=== PATIENT | male | born 1950 | race Caucasian/White ===

== ENCOUNTER 2018-10-19 06:27 | Inpatient (IN) | payer MEDICARE ==
[2018-10-18 11:04] LABS: BASOPHILS % 0.4 % (0.0-1.0); EOSINOPHILS # (AUTO) 0.1 (0.0-0.4); HEMATOCRIT 43.6 % (38.2-49.6); LYMPHOCYTES # (AUTO) 1.6 (1.0-3.2); LYMPHOCYTES % 31.1 % (18.0-39.1); MEAN CORPUSCULAR HEMOGLOBIN 27.7 pg (28-32); MEAN CORPUSCULAR HGB CONC 32.1 g/dL (31-35); MEAN CORPUSCULAR VOLUME 86.2 fL (81-99); MONOCYTES # (AUTO) 0.3 (0.2-0.8); MONOCYTES % 6.1 % (4.4-11.3); NEUTROPHILS # (AUTO) 3.2 (2.1-6.9); NEUTROPHILS % 61.2 % (38.7-80.0); PLATELET COUNT 254 x10e3/uL (140-360); RED BLOOD COUNT 5.06 x10e6/uL (4.3-5.7); RED CELL DISTRIBUTION WIDTH 14.4 % (11.7-14.4)
--- NOTE | 2018-10-18 11:43 | Diagnostic Imaging Report ---
EXAMINATION: CHEST 2 VIEWS INDICATION: Pre-operative COMPARISON: None FINDINGS: LINES/TUBES:None LUNGS:The lungs are well-inflated. No focal consolidation or pulmonary edema. PLEURA:Trace left pleural effusion. No pneumothorax. MEDIASTINUM:The cardiomediastinal silhouette appears normal in size and shape. BONES/SOFT TISSUES:No acute osseous injury. Thoracolumbar fusion hardware. ABDOMEN:No free air under the diaphragm. IMPRESSION: No focal pneumonia or pulmonary edema. Signed by: Evonne Gutierres MD on 10/18/2018 11:40 AM
[~2018-10-19] VITALS: Ht 185.4 cm; Wt 88.5 kg
[~2018-10-19 06:27] MED LIST: AMLODIPINE-BEN1 EAC1 PO; CALCIUM-MAGNES1 EACH PO; COQ-1030 MG PO; CRESTOR10 MG PO; D3 DOTS2000 UNIT PO; FISH OIL 1,0001 EAC2 PO; LUNESTA3 MG PO; MULTI-VITAMIN1 EACH PO
--- OUTSIDE RECORDS SUMMARY | 2018-10-19 06:38 | XMS REPORT | Clinical Summary ---
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 Active cholecalciferol, vitamin Take 1,000 0 D3, (VITAMIN D3) 1,000 Units by unit tablet mouth nightly. Active coenzyme Q10 (CO Q-10) Take 200 mg 0 200 mg capsule by mouth nightly. Active eszopiclone (LUNESTA) 3 Take 3 mg by 0 mg tablet mouth nightly as needed for sleep. Take immediately before bedtime Active HYDROcodone-acetaminophen Take 1 tablet 0 (NORCO) 10-325 mg per by mouth tablet every 8 (eight) hours as needed for moderate pain. Active multivitamin (THERAGRAN) Take 0.5 0 tablet tablets by mouth 2 (two) times a day. Active omega 4-otq-ukf-fish oil Take 1 0 (FISH OIL) 100-160-1,000 capsule by mg capsule mouth nightly. Active polyethylene glycol Take 17 g by 0 (MIRALAX) 17 gram packet mouth daily as needed for constipation. Active rosuvastatin (CRESTOR) 20 Take 20 mg by 0 MG tablet mouth nightly. Active RSYEPOT-DOZOOFPDS-QAAC Take 1 tablet 0 ORAL by mouth every morning. Active midodrine (PROAMATINE) 5 Take 5 mg by 3 MG tablet mouth 2 (two) 9 times a day. Active metoprolol tartrate TAKE 1/2 1 (LOPRESSOR) 25 mg tablet TBALET BY 9 MOUTH TWICE A DAY 09/21/2019 Active gabapentin (NEURONTIN) Take 1 90 capsule 2 300 mg capsule capsule (300 9 mg total) by mouth 3 (three) times a day. 03/10/2018 Discontinued (Stop Taking at Discharge) amlodipine-benazepril Take 1 0 (LOTREL 5-10) 5-10 mg per capsule by capsule mouth daily. 12/16/2017 Discontinued (Med List Cleanup) clopidogrel (PLAVIX) 75 Take 75 mg by 0 mg tablet mouth. 12/17/2017 Discontinued (Stop Taking at Discharge) eszopiclone (LUNESTA) 3 Take 3 mg by 0 mg tablet mouth nightly as needed for sleep. 12/16/2017 Discontinued (Med List Cleanup) gabapentin (NEURONTIN) Take 1 pill 0 300 mg capsule at bedtime 8 for 1 week, then 2 pills nightly 03/29/2018 Discontinued rosuvastatin (CRESTOR) 20 Take 20 mg by 0 MG tablet mouth nightly. 01/29/2018 Discontinued gabapentin (NEURONTIN) Take 300 mg 0 300 mg capsule by mouth daily. 01/29/2018 Discontinued baclofen (LIORESAL) 20 MG Take 20 mg by 0 tablet mouth 4 (four) times a day as needed for muscle spasms. 01/29/2018 Discontinued meloxicam (MOBIC) 15 mg Take 15 mg by 0 tablet mouth daily as needed. 03/29/2018 Discontinued aspirin (ECOTRIN) 81 MG Take 81 mg by 0 enteric coated tablet mouth daily. 03/29/2018 Discontinued omega 9-zbh-suc-fish oil Take 1,000 mg 0 (FISH OIL) 100-160-1,000 by mouth mg capsule daily. 03/29/2018 Discontinued multivitamin (THERAGRAN) Take 1 tablet 0 tablet by mouth daily. 03/29/2018 Discontinued coenzyme Q10 200 mg Take 200 mg 0 capsule by mouth daily. 03/29/2018 Discontinued cholecalciferol, vitamin Take 1,000 0 D3, (VITAMIN D3) 2,000 Units by unit capsule capsule mouth daily. 03/29/2018 Discontinued eszopiclone (LUNESTA) 3 Take 3 mg by 0 mg tablet mouth nightly. Take immediately before bedtime 03/29/2018 Discontinued CALCIUM ORAL Take by 0 mouth. 03/29/2018 Discontinued (Med List Cleanup) metoprolol tartrate Take 0.5 90 tablet 1 (LOPRESSOR) 25 mg tablet tablets (12.5 9 mg total) by mouth 2 (two) times a day for 90 days. 03/29/2018 Discontinued (Med List Cleanup) polyethylene glycol Take 17 g by 30 packet 0 (MIRALAX) 17 gram packet mouth daily 9 for 30 days. 03/29/2018 Discontinued HYDROcodone-acetaminophen Take 1 tablet 60 tablet 0 (NORCO) 10-325 mg per by mouth 9 tablet every 8 (eight) hours as needed for moderate pain for up to 20 days. Max Daily Amount: 3 tablets 04/02/2018 Discontinued (Reorder) metoprolol tartrate Take 12.5 mg 0 (LOPRESSOR) 25 mg tablet by mouth 2 (two) times a day. 05/02/2018 metoprolol tartrate Take 1 tablet 60 tablet 3 (LOPRESSOR) 25 mg tablet (25 mg total) 9 by mouth 2 (two) times a day for 30 days. 07/20/2018 amoxicillin (AMOXIL) 500 Take 1 4 capsule 0 MG capsule capsule (500 9 mg total) by mouth 3 (three) times a day for 1 day. 09/21/2018 Discontinued (Reorder) gabapentin (NEURONTIN) Take 1 90 capsule 2 300 mg capsule capsule (300 9 mg total) by mouth 3 (three) times a day. Active Problems Problem Noted Date Pseudarthrosis following spinal fusion 02/19/2018 Syncope 12/16/2017 Encounters Care Team Description Date Type Specialty Phyllis Denton MA 09/21/2018 Refill Orthopedic Surgery Anant Singer MD Pseudarthrosis following spinal fusion (Primary Dx); Chronic low back pain without sciatica, unspecified back pain laterality; Degeneration of intervertebral disc of lumbar region; Sagittal plane imbalance; Adjacent segment disease with kyphosis 08/18/2018 Office Visit Orthopedic Surgery Phyllis Denton MA 07/19/2018 Refill Orthopedic Surgery Phyllis Denton MA 07/19/2018 Refill Orthopedic Surgery Anant Singer MD Postoperative abdominal pain 07/08/2018 Hospital Radiology Encounter Phyllis Denton MA Postoperative abdominal pain (Primary Dx) 07/01/2018 Orders Only Orthopedic Surgery Anant Singer MD Sagittal plane imbalance (Primary Dx); Adjacent segment disease with kyphosis; Chronic low back pain without sciatica, unspecified back pain laterality; Degeneration of intervertebral disc of lumbar region; Pseudarthrosis following spinal fusion 05/19/2018 Office Visit Orthopedic Surgery Kellie Yates MD Thai, Ryan T., MD Syncope, unspecified syncope type (Primary Dx) 03/29/2018 Hospital Neurology - Encounter 04/02/2018 Anant Singer MD Pseudarthrosis following spinal fusion (Primary Dx) 03/24/2018 Office Visit Orthopedic Surgery Anant Singer MD FUSION, ANTERIOR SPINAL COLUMN, LUMBAR, ANTERIOR APPROACH L2 Corpectomy with L1-3 fusion; possible instrumentation fusion; SSEP and motors; BMP 03/01/2018 Surgery General Surgery Pepe Burdick MD Cunningham, Carley, CRNA 03/01/2018 Anesthesia General Surgery Event Anant Singer MD SPINAL FUSION WITH INSTRUMENTAION T9-L5 WITH HARDWARE REMOVAL MANTILLA DOLAN OSTEOTOMIES L1-L2 L2-L3 LAMINECTIOMY L1-L2 L2-L3 WITH BMP W/ SSEP MONITORING 02/25/2018 Surgery General Surgery Maria A Daly MD Felan, Veronica Lynn, WHARF TENDER HEAD 02/25/2018 Anesthesia General Surgery Event Anant Singer MD Pseudarthrosis after fusion or arthrodesis 02/19/2018 Hospital Neurology Encounter Anant Singer MD STAGE 1 L1-L2 L2-L3 ANTERIOR OSTEOTOMIES WITH 20 CAGE @L2- L3 AND 15 CAGE @ L1-L2 WITH ANTERIOR SPINAL FUSION WITH INSTRUMENTATION AND BMP 02/19/2018 Surgery General Surgery Les Hayes MD Felan, Veronica Lynn, WHARF TENDER HEAD 02/19/2018 Anesthesia General Surgery Event Anant Singer MD Thai, Ryan T., MD Pseudarthrosis following spinal fusion; Pseudarthrosis after fusion or arthrodesis 02/19/2018 Hospital Orthopedic Surgery - Encounter 03/10/2018 Liban Zurita MD Marco, Rex A. W., MD Preop testing (Primary Dx) 02/12/2018 Pre-Admit Pre-Admission Testing Testing Appointment Gemini Heck MA Pseudarthrosis after fusion or arthrodesis (Primary Dx) 01/19/2018 Orders Only Orthopedic Surgery Anant Singer MD Adjacent segment disease with spinal stenosis (Primary Dx); Pseudarthrosis following spinal fusion; Sagittal plane imbalance; Spondylolisthesis of lumbar region; Chronic low back pain without sciatica, unspecified back pain laterality; Spinal stenosis of lumbar region with neurogenic claudication; DDD (degenerative disc disease), lumbar 01/13/2018 Office Visit Orthopedic Surgery Lucy Sales MD Vitamin D deficiency 01/07/2018 Lab Lab Lucy Sales MD Vitamin D deficiency (Primary Dx) 01/07/2018 Office Visit Endocrinology Anant Singer MD Chronic low back pain without sciatica, unspecified back pain laterality; Degeneration of intervertebral disc of lumbar region; Adjacent segment disease with kyphosis 12/29/2017 Hospital Radiology Encounter Anant Singer MD Chronic low back pain without sciatica, unspecified back pain laterality; Degeneration of intervertebral disc of lumbar region; Adjacent segment disease with kyphosis 12/29/2017 Hospital Radiology Encounter Kellie Yates MD Ahmed, Rezwan, MD Syncope, unspecified syncope type (Primary Dx) 12/16/2017 Emergency Neurology - 12/17/2017 Anant Singer MD Chronic low back pain without sciatica, unspecified back pain laterality (Primary Dx); Degeneration of intervertebral disc of lumbar region; Adjacent segment disease with kyphosis; Flat back syndrome 12/16/2017 Office Visit Orthopedic Surgery after 10/18/2017 Family History Medical History Relation Name Comments Hypertension Mother Relation Name Status Comments Mother Social History Date Tobacco Use Types Packs/Day Years Used Never Smoker Smokeless Tobacco: Never Used Drinks/Week oz/Week Comments Alcohol Use occasional Yes Sex Assigned at Date Recorded Not on file Industry Job Start Date Occupation Not on file Not on file Not on file Travel End Travel History Travel Start No recent travel history available. Last Filed Vital Signs Reading Time Taken Comments Vital Sign 138/85 04/02/2018 12:27 PM TESTER ELECTRONIC SCALE Blood Pressure 95 04/02/2018 12:27 PM TESTER ELECTRONIC SCALE Pulse 36.8 C (98.2 F) 04/02/2018 12:27 PM TESTER ELECTRONIC SCALE Temperature 18 04/02/2018 12:27 PM TESTER ELECTRONIC SCALE Respiratory Rate 95% 04/02/2018 12:27 PM TESTER ELECTRONIC SCALE Oxygen Saturation - - Inhaled Oxygen Concentration 83.9 kg (185 lb) 07/08/2018 9:38 AM CDT Weight 185.4 cm (6' 1") 07/08/2018 9:38 AM CDT Height 24.41 07/08/2018 9:38 AM CDT Body Mass Index Plan of Treatment Care Team Description Date Type Specialty Anant Singer MD [address] [id number] Bonifacio Orr PAThalia [address] [id number] 02/23/2019 Office Visit Orthopedic Surgery Health Maintenance Due Date Last Done Comments COLONOSCOPY SCREENING 11/27/2001 SHINGLES VACCINES (#1) 11/27/2001 65+ PNEUMOCOCCAL VACCINE 11/27/2016 03/12/2015 (2 of 2 - PPSV23) INFLUENZA VACCINE 09/09/2018 12/03/2017, 12/10/2016, 01/09/2016, Additional history exists Implants Device Identifier Shelf Expiration Date Model / Serial / Lot Implanted Type Area [facility] 07/10/2019 [id number] / / [id number] Kit Bone Grft Lmbr Tprd 8ml Xxl Human N/A: N/A MEDTRONIC Infuse - [id number] Tissue SPINAL AND Implanted: Qty: 1 on 02/19/2018 by Implants BIOLOGICS Anant Singer MD at [facility] 06/03/2020 [id number] / [id number] / LOT NA Chip Canc Allograft Leader [facility] Human N/A: N/A MUSCULOSKE 30cc 0.1-4mm - [id number] - Tissue LETAL [id number] Implants TRANSPLANT Implanted: Qty: 1 on 02/19/2018 by [facility] Anant Singer MD at [facility] 12/22/2020 [id number] / [id number] / LOT NA Chip Canc Allograft Leader [facility] Human N/A: N/A MUSCULOSKE 30cc 0.1-4mm - [id number] - Tissue LETAL [id number] Implants TRANSPLANT Implanted: Qty: 1 on 02/19/2018 by Anant Allen MD at [facility] 07/10/2019 [id number] / / [id number] Kit Bone Grft Lmbr Tprd 8ml Xxl Human N/A: Spine, MEDTRONIC Infuse - [id number] Tissue Multi-Level SPINAL AND Implanted: Qty: 1 on 02/25/2018 by Implants BIOLOGICS Anant Singer MD at [facility] 09/25/2020 [id number] / [id number] / LOT NA Chip Canc Allograft Leader Crs Human N/A: Spine, MUSCULOSKE 30cc 0.1-4mm - [id number] - Tissue Multi-Level LETAL [id number] Implants TRANSPLANT Implanted: Qty: 1 on 02/25/2018 by [facility] Anant Singer MD at [facility] 12/22/2020 [id number] / [id number] / LOT NA Chip Canc Allograft Leader [facility] Human N/A: Spine, MUSCULOSKE 30cc 0.1-4mm - [id number] - Tissue Multi-Level LETAL [id number] Implants TRANSPLANT Implanted: Qty: 1 on 02/25/2018 by [facility] Anant Singer MD at [facility] 09/25/2020 [id number] / [id number] / LOT NA Chip Canc Allograft Leader [facility] Human N/A: Spine, MUSCULOSKE 30cc 0.1-4mm - [id number] - Tissue Multi-Level LETAL [id number] Implants TRANSPLANT Implanted: Qty: 1 on 02/25/2018 by [facility] Anant Singer MD at [facility] 10/09/2020 [id number] / / [id number] Matrix Dural Duragen Plus 1x3in Human N/A: N/A INTEGRA Regnrtn - [id number] Tissue LIFESCIENC Implanted: Qty: 1 on 02/25/2018 by Implants E NEURO Anant Singer MD at [facility] 01/20/2021 [id number] / [id number] / [id number] Chip Canc Allograft Leader Crs Human N/A: N/A MUSCULOSKE 30cc 0.1-4mm - [id number] - Tissue LETAL [id number] Implants TRANSPLANT Implanted: Qty: 1 on 03/01/2018 by [facility] Anant Singer MD at [facility] 01/20/2021 [id number] / [id number] / LOT NA Chip Canc Allograft Leader Crs Human N/A: N/A MUSCULOSKE 30cc 0.1-4mm - [id number] - Tissue LETAL [id number] Implants TRANSPLANT Implanted: Qty: 1 on 03/01/2018 by Anant Allen MD at [facility] 01/20/2021 [id number] / [id number] / LOT NA Chip Canc Allograft Leader Crs Human N/A: N/A MUSCULOSKE 30cc 0.1-4mm - [id number] - Tissue LETAL [id number] Implants TRANSPLANT Implanted: Qty: 1 on 03/01/2018 by Anant Allen MD at [facility] 04/09/2019 [id number] / / [id number] Kit Bone Grft Lmbr Tprd 5.6ml Med Human N/A: N/A MEDTRONIC Infuse - [id number] Tissue SPINAL AND Implanted: Qty: 1 on 03/01/2018 by Implants BIOLOGICS Anant Singer MD at [facility] [id number] / / Valente Glaser Md 14mm 20 Deg - IPM N/A: N/A DEPUY [id number] IMPLANT SYNTHES Implanted: Qty: 1 on 02/19/2018 by DEVICES SPINE Anant Singer MD at [facility] [id number] / / Valente Lucio [id number] 15-Deg Lord - IPM N/A: N/A DEPUY [id number] IMPLANT SYNTHES Implanted: Qty: 1 on 02/19/2018 by DEVICES SPINE Anant Singer MD at [facility] [id number] / / Expedium 6.35 Ti, Poly Screw 6 X IPM N/A: Spine, DEPUY 30mm - [id number] IMPLANT Multi-Level SYNTHES Implanted: 02/25/2018 at [facility] DEVICES [facility] (Quantity not on file) [id number] / / Expedium 6.35 Ti, Poly Screw 6 X IPM N/A: Spine, DEPUY 45mm - [id number] IMPLANT Multi-Level SYNTHES Implanted: 02/25/2018 at [facility] (Quantity not on file) [id number] / / Expedium 6.35 Ti, Poly Screw 6 X IPM N/A: Spine, DEPUY 50mm - [id number] IMPLANT Multi-Level SYNTHES Implanted: 02/25/2018 at [facility] (Quantity not on file) [id number] / / Expedium 6.35 Ti, Poly Screw 7 X IPM N/A: Spine, DEPUY 50mm - [id number] IMPLANT Multi-Level SYNTHES Implanted: 02/25/2018 at [facility] (Quantity not on file) [id number] / / Expedium 6.35 Ti, Poly Screw 8 X IPM N/A: Spine, DEPUY 50mm - [id number] IMPLANT Multi-Level SYNTHES Implanted: 02/25/2018 at [facility] (Quantity not on file) [id number] / / Expedium Plus Ti, Eleuterio, Str, Ti, IPM N/A: Spine, DEPUY 450mm (Hx End) - [id number] IMPLANT Multi-Level SYNTHES Implanted: 02/25/2018 at [facility] (Quantity not on file) [id number] / / Expedium Plus Ti, Eleuterio, Str, Ti, IPM N/A: Spine, DEPUY 450mm (Hx End) - [id number] IMPLANT Multi-Level SYNTHES Implanted: 02/25/2018 at [facility] (Quantity not on file) [id number] / / Expedium Plus Ti, Open/Cls Sd X Sd IPM N/A: Spine, DEPUY Con 635/635 Ti - [id number] IMPLANT Multi-Level SYNTHES Implanted: 02/25/2018 at [facility] (Quantity not on file) [id number] / / Synmesh 15mm Heaven 88mm Height (Ti) - IPM N/A: N/A SYNTHES (00) Synmesh IMPLANT SPINE - [id number] DEVICES Implanted: Qty: 2 on 03/01/2018 by Anant Singer MD at [facility] [id number] / / Expedium Anterior, Twiggs Screw 6 X IPM N/A: N/A DEPUY 55mm - [id number] IMPLANT SYNTHES Implanted: Qty: 2 on 03/01/2018 by DEVICES SPINE Anant Singer MD at [facility] [id number] / / Expedium Anterior, Pre-Cut 5.50 X IPM N/A: N/A DEPUY 95mm Eleuterio - [id number] IMPLANT SYNTHES Implanted: Qty: 1 on 03/01/2018 by DEVICES SPINE Anant Singer MD at [facility] [id number] / / Expedium Anterior, Twiggs Screw 6 X IPM N/A: N/A DEPUY 55mm - [id number] IMPLANT SYNTHES Implanted: Qty: 2 on 03/01/2018 by DEVICES SPINE Anant Singer MD at [facility] [id number] / / Expedium Anterior, Pre-Cut 5.50 X IPM N/A: N/A DEPUY 95mm Eleuterio - [id number] IMPLANT SYNTHES Implanted: 03/01/2018 at [facility] DEVICES [facility] (Quantity not on file) [id number] / / Synmesh 15mm Heaven 88mm Height (Ti) - IPM N/A: N/A SYNTHES (00) Synmesh IMPLANT SPINE - [id number] DEVICES Implanted: Qty: 2 on 03/01/2018 by Anant Singer MD at [facility] [id number] / / Screw Spinal Set Si Ti 6.35mm Spinal N/A: Spine, DEPUY Expedium - [id number] Implants Multi-Level SPINE Implanted: 02/25/2018 at [facility] (Quantity not on file) [id number] / / Screw Spinal Set Si Ti 6.35mm Spinal N/A: Spine, DEPUY Expedium - [id number] Implants Multi-Level SPINE Implanted: 02/25/2018 at [facility] (Quantity not on file) [id number] / / Screw Set Ant - [id number] Spinal N/A: N/A DEPUY Implanted: 03/01/2018 at [facility] Implants [facility] (Quantity not on file) [id number] / / Screw Set Ant - [id number] Spinal N/A: N/A DEPUY Implanted: 03/01/2018 at [facility] Implants [facility] (Quantity not on file) 04/09/2019 [id number] / / [id number] Kit Selnt Fibrin Humn Hms Surgy Surgical N/A: N/A ETHICON 5ml Evicel - [id number] Implants; US- Implanted: 02/25/2018 at [facility] Expanders; HOSPITAL (Quantity not on file) Extenders; Surgical Wires Device Identifier Shelf Expiration Date Model / Serial / Lot Explanted Type Area Manufactur er [id number] / / Expedium 6.35 Ti, Poly Screw 6 X IPM N/A: N/A DEPUY 50mm - [id number] IMPLANT SYNTHES Implanted: 02/25/2018 (Quantity not DEVICES SPINE on file) Explanted: 02/25/2018 at [facility] (Quantity not on file) Procedures Comments Procedure Name Priority Date/Time Associated Diagnosis XR SPINE SCOLIOSIS 2-3 Routine 08/18/2018 Pseudarthrosis following VIEWS 8:47 AM CDT spinal fusion Chronic low back pain without sciatica, unspecified back pain laterality Degeneration of intervertebral disc of lumbar region Sagittal plane imbalance Adjacent segment disease with kyphosis CT ABDOMEN WWO CONTRAST Routine 07/08/2018 Postoperative abdominal PELVIS W CONTRAST 12:07 PM CDT pain ESTIMATED GFR Routine 07/08/2018 9:48 AM CDT POC CREATININE Routine 07/08/2018 9:48 AM CDT XR SPINE SCOLIOSIS 2-3 Routine 05/19/2018 Sagittal plane imbalance VIEWS 8:43 AM CDT Adjacent segment disease with kyphosis Chronic low back pain without sciatica, unspecified back pain laterality Degeneration of intervertebral disc of lumbar region Pseudarthrosis following spinal fusion XR CHEST 1 VW PORTABLE Routine 04/02/2018 8:42 AM TESTER ELECTRONIC SCALE ESTIMATED GFR Routine 04/02/2018 4:00 AM TESTER ELECTRONIC SCALE PHOSPHORUS LEVEL Routine 04/02/2018 4:00 AM TESTER ELECTRONIC SCALE MAGNESIUM LEVEL Routine 04/02/2018 4:00 AM TESTER ELECTRONIC SCALE BASIC METABOLIC PANEL Routine 04/02/2018 4:00 AM TESTER ELECTRONIC SCALE HC COMPLETE BLD COUNT Routine 04/02/2018 W/AUTO DIFF 3:47 AM TESTER ELECTRONIC SCALE CYTOLOGY Routine 03/31/2018 (NON-GYNECOLOGICAL) 1:06 PM TESTER ELECTRONIC SCALE REQUEST XR CHEST 1 VW Routine 03/31/2018 10:58 AM TESTER ELECTRONIC SCALE US THORACENTESIS WITH Today 03/31/2018 IMAGING 10:49 AM TESTER ELECTRONIC SCALE BODY FLUID CONSULT Routine 03/31/2018 10:16 AM TESTER ELECTRONIC SCALE PROTEIN, MISC FLUID Routine 03/31/2018 10:16 AM TESTER ELECTRONIC SCALE LDH, MISC FLUID Routine 03/31/2018 10:16 AM TESTER ELECTRONIC SCALE GLUCOSE LEVEL, MISC FLUID Routine 03/31/2018 10:16 AM TESTER ELECTRONIC SCALE CELL COUNT AND Routine 03/31/2018 DIFFERENTIAL, BODY FLUID 10:16 AM TESTER ELECTRONIC SCALE AFB STAIN Routine 03/31/2018 10:16 AM TESTER ELECTRONIC SCALE GRAM STAIN Routine 03/31/2018 10:16 AM TESTER ELECTRONIC SCALE ANAEROBIC CULTURE Routine 03/31/2018 10:16 AM TESTER ELECTRONIC SCALE AEROBIC CULTURE Routine 03/31/2018 10:16 AM TESTER ELECTRONIC SCALE AFB CULTURE Routine 03/31/2018 9:16 AM TESTER ELECTRONIC SCALE ESTIMATED GFR Routine 03/31/2018 4:38 AM TESTER ELECTRONIC SCALE HC COMPLETE BLD COUNT Routine 03/31/2018 W/AUTO DIFF 4:38 AM TESTER ELECTRONIC SCALE PHOSPHORUS LEVEL Routine 03/31/2018 4:38 AM TESTER ELECTRONIC SCALE MAGNESIUM LEVEL Routine 03/31/2018 4:38 AM TESTER ELECTRONIC SCALE BASIC METABOLIC PANEL Routine 03/31/2018 4:[address] ANGIOGRAM ABDOMEN W WO STAT 03/30/2018 CONTRAST 10:19 PM TESTER ELECTRONIC SCALE POC GLUCOSE Routine 03/30/2018 10:17 AM TESTER ELECTRONIC SCALE LACTIC ACID LEVEL Routine 03/30/2018 4:00 AM TESTER ELECTRONIC SCALE TROPONIN Routine 03/30/2018 4:00 AM TESTER ELECTRONIC SCALE ESTIMATED GFR Routine 03/30/2018 4:00 AM TESTER ELECTRONIC SCALE HEPATIC FUNCTION PANEL Routine 03/30/2018 4:00 AM TESTER ELECTRONIC SCALE LDH Routine 03/30/2018 4:00 AM TESTER ELECTRONIC SCALE PHOSPHORUS LEVEL Routine 03/30/2018 4:00 AM TESTER ELECTRONIC SCALE MAGNESIUM LEVEL Routine 03/30/2018 4:00 AM TESTER ELECTRONIC SCALE BASIC METABOLIC PANEL Routine 03/30/2018 4:00 AM TESTER ELECTRONIC SCALE TROPONIN Timed 03/29/2018 9:28 PM TESTER ELECTRONIC SCALE LACTIC ACID LEVEL, SEPSIS Timed 03/29/2018 - NOW AND REPEAT 2X EVERY 9:28 PM TESTER ELECTRONIC SCALE [address] ANGIOGRAM PE CHEST STAT 03/29/2018 8:11 PM TESTER ELECTRONIC SCALE ESTIMATED GFR STAT 03/29/2018 5:06 PM TESTER ELECTRONIC SCALE B NATRIURETIC PEPTIDE STAT 03/29/2018 5:06 PM TESTER ELECTRONIC SCALE TROPONIN STAT 03/29/2018 5:06 PM TESTER ELECTRONIC SCALE CREATINE KINASE, TOTAL STAT 03/29/2018 (CPK) 5:06 PM TESTER ELECTRONIC SCALE LACTIC ACID LEVEL, SEPSIS STAT 03/29/2018 - NOW AND REPEAT 2X EVERY 5:06 PM TESTER ELECTRONIC SCALE 3 HOURS COMPREHENSIVE METABOLIC STAT 03/29/2018 PANEL 5:06 PM TESTER ELECTRONIC SCALE PARTIAL THROMBOPLASTIN STAT 03/29/2018 TIME (PTT) 5:06 PM TESTER ELECTRONIC SCALE PROTHROMBIN TIME WITH INR STAT 03/29/2018 5:06 PM TESTER ELECTRONIC SCALE HC COMPLETE BLD COUNT STAT 03/29/2018 W/AUTO DIFF 5:06 PM TESTER ELECTRONIC SCALE ECG ED PRELIMINARY Routine 03/29/2018 INTERPRETATION 3:31 PM TESTER ELECTRONIC SCALE ECG 12-LEAD STAT 03/29/2018 3:17 PM TESTER ELECTRONIC SCALE XR SPINE SCOLIOSIS 2-3 Routine 03/24/2018 Pseudarthrosis following VIEWS 11:36 AM TESTER ELECTRONIC SCALE spinal fusion XR SPINE SCOLIOSIS 2-3 STAT 03/08/2018 VIEWS 4:32 PM TESTER ELECTRONIC SCALE US DUPLEX VENOUS LOWER Routine 03/07/2018 EXTREMITY BILATERAL 11:36 AM TESTER ELECTRONIC SCALE THYROID STIMULATING Routine 03/07/2018 HORMONE 4:00 AM TESTER ELECTRONIC SCALE ECHOCARDIOGRAM 2D Routine 03/05/2018 COMPLETE W MMODE SPECTRAL 10:16 AM TESTER ELECTRONIC SCALE COLOR DOPPLER (88349) CT CHEST WO CONTRAST Routine 03/05/2018 9:35 AM TESTER ELECTRONIC SCALE B NATRIURETIC PEPTIDE Routine 03/05/2018 3:40 AM TESTER ELECTRONIC SCALE HC COMPLETE BLD COUNT Routine 03/05/2018 W/AUTO DIFF 3:40 AM TESTER ELECTRONIC SCALE TROPONIN Routine 03/04/2018 4:00 PM TESTER ELECTRONIC SCALE POC GLUCOSE Routine 03/04/2018 12:14 PM TESTER ELECTRONIC SCALE ARTERIAL BLOOD GAS Routine 03/04/2018 11:39 AM TESTER ELECTRONIC SCALE POC GLUCOSE Routine 03/04/2018 8:13 AM TESTER ELECTRONIC SCALE XR CHEST 1 VW PORTABLE STAT 03/04/2018 7:06 AM TESTER ELECTRONIC SCALE POC GLUCOSE Routine 03/04/2018 12:36 AM TESTER ELECTRONIC SCALE IONIZED CALCIUM, ARTERIAL Routine 03/04/2018 12:30 AM TESTER ELECTRONIC SCALE ARTERIAL BLOOD GAS Routine 03/04/2018 12:30 AM TESTER ELECTRONIC SCALE FIBRINOGEN Routine 03/04/2018 12:30 AM TESTER ELECTRONIC SCALE PROTHROMBIN TIME WITH INR Routine 03/04/2018 12:30 AM TESTER ELECTRONIC SCALE PARTIAL THROMBOPLASTIN Routine 03/04/2018 TIME (PTT) 12:30 AM TESTER ELECTRONIC SCALE ESTIMATED GFR Routine 03/04/2018 12:30 AM TESTER ELECTRONIC SCALE PHOSPHORUS LEVEL Routine 03/04/2018 12:30 AM TESTER ELECTRONIC SCALE MAGNESIUM LEVEL Routine 03/04/2018 12:30 AM TESTER ELECTRONIC SCALE HC COMPLETE BLD COUNT Routine 03/04/2018 W/AUTO DIFF 12:30 AM TESTER ELECTRONIC SCALE BASIC METABOLIC PANEL Routine 03/04/2018 12:30 AM TESTER ELECTRONIC SCALE XR CHEST 1 VW PORTABLE Routine 03/03/2018 10:05 PM TESTER ELECTRONIC SCALE POC GLUCOSE Routine 03/03/2018 8:30 PM TESTER ELECTRONIC SCALE POC GLUCOSE Routine 03/03/2018 3:50 PM TESTER ELECTRONIC SCALE POC GLUCOSE Routine 03/03/2018 12:45 PM TESTER ELECTRONIC SCALE POC GLUCOSE Routine 03/03/2018 8:33 AM TESTER ELECTRONIC SCALE POC GLUCOSE Routine 03/03/2018 5:29 AM TESTER ELECTRONIC SCALE ESTIMATED GFR Routine 03/03/2018 2:56 AM TESTER ELECTRONIC SCALE PHOSPHORUS LEVEL Routine 03/03/2018 2:56 AM TESTER ELECTRONIC SCALE MAGNESIUM LEVEL Routine 03/03/2018 2:56 AM TESTER ELECTRONIC SCALE HC COMPLETE BLD COUNT Routine 03/03/2018 W/AUTO DIFF 2:56 AM TESTER ELECTRONIC SCALE BASIC METABOLIC PANEL Routine 03/03/2018 2:56 AM TESTER ELECTRONIC SCALE POC GLUCOSE Routine 03/03/2018 12:23 AM TESTER ELECTRONIC SCALE POC GLUCOSE Routine 03/02/2018 8:29 PM TESTER ELECTRONIC SCALE POC GLUCOSE Routine 03/02/2018 4:07 PM TESTER ELECTRONIC SCALE HC COMPLETE BLD COUNT Routine 03/02/2018 W/AUTO DIFF 1:20 PM TESTER ELECTRONIC SCALE POC GLUCOSE Routine 03/02/2018 11:52 AM TESTER ELECTRONIC SCALE POC GLUCOSE Routine 03/02/2018 8:18 AM TESTER ELECTRONIC SCALE XR CHEST 1 VW PORTABLE Routine 03/02/2018 6:48 AM TESTER ELECTRONIC SCALE ESTIMATED GFR Routine 03/02/2018 1:59 AM TESTER ELECTRONIC SCALE LACTIC ACID LEVEL Routine 03/02/2018 1:59 AM TESTER ELECTRONIC SCALE PHOSPHORUS LEVEL Routine 03/02/2018 1:59 AM TESTER ELECTRONIC SCALE MAGNESIUM LEVEL Routine 03/02/2018 1:59 AM TESTER ELECTRONIC SCALE COMPREHENSIVE METABOLIC Routine 03/02/2018 PANEL 1:59 AM TESTER ELECTRONIC SCALE IONIZED CALCIUM, ARTERIAL Routine 03/02/2018 1:25 AM TESTER ELECTRONIC SCALE PROTHROMBIN TIME WITH INR Routine 03/02/2018 1:25 AM TESTER ELECTRONIC SCALE PARTIAL THROMBOPLASTIN Routine 03/02/2018 TIME (PTT) 1:25 AM TESTER ELECTRONIC SCALE HC COMPLETE BLD COUNT Routine 03/02/2018 W/AUTO DIFF 1:25 AM TESTER ELECTRONIC SCALE ARTERIAL BLOOD GAS Routine 03/02/2018 1:25 AM TESTER ELECTRONIC SCALE TRANSFUSE FRESH FROZEN STAT 03/01/2018 PLASMA 5:21 PM TESTER ELECTRONIC SCALE ARTERIAL BLOOD GAS Routine 03/01/2018 5:17 PM TESTER ELECTRONIC SCALE HC COMPLETE BLD COUNT Routine 03/01/2018 W/AUTO DIFF 5:17 PM TESTER ELECTRONIC SCALE TRANSFUSE FRESH FROZEN STAT 03/01/2018 PLASMA 4:34 PM TESTER ELECTRONIC SCALE TRANSFUSE PLATELET STAT 03/01/2018 PHERESIS 3:58 PM TESTER ELECTRONIC SCALE POC GLUCOSE Routine 03/01/2018 3:48 PM TESTER ELECTRONIC SCALE SURGICAL PATHOLOGY Routine 03/01/2018 REQUEST 3:10 PM TESTER ELECTRONIC SCALE ESTIMATED GFR Routine 03/01/2018 2:25 PM TESTER ELECTRONIC SCALE LACTIC ACID LEVEL Routine 03/01/2018 2:25 PM TESTER ELECTRONIC SCALE PHOSPHORUS LEVEL Routine 03/01/2018 2:25 PM TESTER ELECTRONIC SCALE MAGNESIUM LEVEL Routine 03/01/2018 2:25 PM TESTER ELECTRONIC SCALE BASIC METABOLIC PANEL Routine 03/01/2018 2:25 PM TESTER ELECTRONIC SCALE INTRAOPERATIVE MONITORING Routine 03/01/2018 1:25 PM TESTER ELECTRONIC SCALE TRANSFUSE RED BLOOD CELLS Routine 03/01/2018 1:17 PM TESTER ELECTRONIC SCALE OR FL > 1 HOUR Routine 03/01/2018 1:06 PM TESTER ELECTRONIC SCALE TRANSFUSE RED BLOOD CELLS Routine 03/01/2018 1:00 PM TESTER ELECTRONIC SCALE MAGNESIUM LEVEL STAT 03/01/2018 12:11 PM TESTER ELECTRONIC SCALE LACTIC ACID, SYRINGE STAT 03/01/2018 12:11 PM TESTER ELECTRONIC SCALE GLUCOSE LEVEL, SYRINGE STAT 03/01/2018 12:11 PM TESTER ELECTRONIC SCALE IONIZED CALCIUM, ARTERIAL STAT 03/01/2018 12:11 PM TESTER ELECTRONIC SCALE HEMOGLOBIN, SYRINGE STAT 03/01/2018 12:11 PM TESTER ELECTRONIC SCALE SODIUM LEVEL, SYRINGE STAT 03/01/2018 12:11 PM TESTER ELECTRONIC SCALE POTASSIUM, SYRINGE STAT 03/01/2018 12:11 PM TESTER ELECTRONIC SCALE ARTERIAL BLOOD GAS, STAT 03/01/2018 CORRECTED 12:11 PM TESTER ELECTRONIC SCALE TRANSFUSE RED BLOOD CELLS Routine 03/01/2018 11:54 AM TESTER ELECTRONIC SCALE TRANSFUSE RED BLOOD CELLS Routine 03/01/2018 11:26 AM TESTER ELECTRONIC SCALE MAGNESIUM LEVEL STAT 03/01/2018 10:45 AM TESTER ELECTRONIC SCALE LACTIC ACID, SYRINGE STAT 03/01/2018 10:45 AM TESTER ELECTRONIC SCALE GLUCOSE LEVEL, SYRINGE STAT 03/01/2018 10:45 AM TESTER ELECTRONIC SCALE IONIZED CALCIUM, ARTERIAL STAT 03/01/2018 10:45 AM TESTER ELECTRONIC SCALE POTASSIUM, SYRINGE STAT 03/01/2018 10:45 AM TESTER ELECTRONIC SCALE SODIUM LEVEL, SYRINGE STAT 03/01/2018 10:45 AM TESTER ELECTRONIC SCALE HEMOGLOBIN, SYRINGE STAT 03/01/2018 10:45 AM TESTER ELECTRONIC SCALE ARTERIAL BLOOD GAS, STAT 03/01/2018 CORRECTED 10:45 AM TESTER ELECTRONIC SCALE UT AN ELECTIVE Routine 03/01/2018 ENDOTRACHEAL AIRWAY 10:09 AM TESTER ELECTRONIC SCALE Procedure Note - Deepa Kaplan CRNA - 03/01/2018 10:09 AM TESTER ELECTRONIC SCALE ANESTHESIA INTUBATION Date/Time: 03/01/2018 10:09 AM Performed by: Deepa Kaplan CRNA Authorized by: Pepe Burdick MD Location: [place] Urgency: Elective Difficult Airway: No Anesthesio logist: Pepe Burdick MD Resident/C RNA/AA: Deepa Kaplan CRNA Preoxygena karen with 100% O2: Yes C-spine Precaution s Maintained Throughout : Yes Mask Ventilatio n: Easy mask Final Airway Type: Endotrache al airway Final Endotrache al Airway: ETT Technique Used: Direct laryngosco py Devices/Me thods Used in Placement: Intubatin g stylet Insertion Site: Oral Blade Type: Harris Laryngosco pe Blade/Vide olaryngosc ope Blade Size: 2 ETT Size (mm): 8.0 Measured from: Lips ETT to Lips (cm): 22 Placement Verified by: CO2 detection, direct visualizat ion and equal breath sounds Laryngosco pic view: Grade IIa - partial view of glottis Rapid Sequence Induction (RSI): No Number of Attempts at Approach: 2 DL x 1 by ER resident, DL x 2 by RULING MACHINE FEEDER grade II1. Both attempts atraumatic . Lips and teeth unchanged from preop FUSION, ANTERIOR SPINAL 03/01/2018 Pseudarthrosis following COLUMN, LUMBAR, ANTERIOR 9:00 AM TESTER ELECTRONIC SCALE spinal fusion APPROACH Case Notes POSTED VIA [employer]/NOE VIEIRA @ [id number] 02/26/18TW, RESIDENT (EZEQUIEL AMIN) TO PROVIDE ANTERIOR EXPOSURE PHYSICIAN, SSEP'S WITH MOTORS, @[id number] BONILLA WILL BE THE ANTERIOR EXPOSURE PHYSICIAN 02/26/18RUT CHENG CONFIRMED DR BONILLA SU L@ 1624 ON 02/26 [facility] Special Needs EST 2HRS, DR BONILLA ANTERIOR EXPOSURE PHYSICIAN, SSEP'S WITH MOTORS POC GLUCOSE Routine 03/01/2018 7:43 AM TESTER ELECTRONIC SCALE PREPARE FRESH FROZEN Routine 03/01/2018 PLASMA 12:20 AM TESTER ELECTRONIC SCALE PREPARE PLATELET PHERESIS Routine 03/01/2018 12:20 AM TESTER ELECTRONIC SCALE PREPARE RBC Routine 03/01/2018 12:20 AM TESTER ELECTRONIC SCALE ESTIMATED GFR Routine 03/01/2018 12:20 AM TESTER ELECTRONIC SCALE IONIZED CALCIUM, ARTERIAL Routine 03/01/2018 12:20 AM TESTER ELECTRONIC SCALE TYPE AND SCREEN Routine 03/01/2018 12:20 AM TESTER ELECTRONIC SCALE PARTIAL THROMBOPLASTIN Routine 03/01/2018 TIME (PTT) 12:20 AM TESTER ELECTRONIC SCALE PROTHROMBIN TIME WITH INR Routine 03/01/2018 12:20 AM TESTER ELECTRONIC SCALE HC COMPLETE BLD COUNT Routine 03/01/2018 W/AUTO DIFF 12:20 AM TESTER ELECTRONIC SCALE ARTERIAL BLOOD GAS Routine 03/01/2018 12:20 AM TESTER ELECTRONIC SCALE PHOSPHORUS LEVEL Routine 03/01/2018 12:20 AM TESTER ELECTRONIC SCALE MAGNESIUM LEVEL Routine 03/01/2018 12:20 AM TESTER ELECTRONIC SCALE COMPREHENSIVE METABOLIC Routine 03/01/2018 PANEL 12:20 AM TESTER ELECTRONIC SCALE POC GLUCOSE Routine 02/28/2018 8:34 PM TESTER ELECTRONIC SCALE US DUPLEX VENOUS LOWER STAT 02/28/2018 EXTREMITY BILATERAL 8:10 PM TESTER ELECTRONIC SCALE CBC HEMOGRAM Routine 02/28/2018 4:10 PM TESTER ELECTRONIC SCALE POC GLUCOSE Routine 02/28/2018 3:[address]ALE [address] LUMBAR SPINE WO STAT 02/28/2018 CONTRAST 2:55 PM TESTER ELECTRONIC SCALE CT THORACIC SPINE WO STAT 02/28/2018 CONTRAST 2:55 PM TESTER ELECTRONIC SCALE TRANSFUSE RED BLOOD CELLS STAT 02/28/2018 11:54 AM TESTER ELECTRONIC SCALE POC GLUCOSE Routine 02/28/2018 11:10 AM TESTER ELECTRONIC SCALE TRANSFUSE RED BLOOD CELLS STAT 02/28/2018 10:32 AM TESTER ELECTRONIC SCALE POC GLUCOSE Routine 02/28/2018 7:03 AM TESTER ELECTRONIC SCALE XR CHEST 1 VW PORTABLE Routine 02/28/2018 5:57 AM TESTER ELECTRONIC SCALE ESTIMATED GFR Routine 02/28/2018 1:54 AM TESTER ELECTRONIC SCALE PHOSPHORUS LEVEL Routine 02/28/2018 1:54 AM TESTER ELECTRONIC SCALE MAGNESIUM LEVEL Routine 02/28/2018 1:54 AM TESTER ELECTRONIC SCALE IONIZED CALCIUM Routine 02/28/2018 1:54 AM TESTER ELECTRONIC SCALE COMPREHENSIVE METABOLIC Routine 02/28/2018 PANEL 1:54 AM TESTER ELECTRONIC SCALE HC COMPLETE BLD COUNT Routine 02/28/2018 W/AUTO DIFF 1:30 AM TESTER ELECTRONIC SCALE POC GLUCOSE Routine 02/28/2018 12:54 AM TESTER ELECTRONIC SCALE POC GLUCOSE Routine 02/27/2018 8:56 PM TESTER ELECTRONIC SCALE CBC HEMOGRAM Routine 02/27/2018 7:30 PM TESTER ELECTRONIC SCALE POC GLUCOSE Routine 02/27/2018 3:45 PM TESTER ELECTRONIC SCALE CBC HEMOGRAM Routine 02/27/2018 2:02 PM TESTER ELECTRONIC SCALE POC GLUCOSE Routine 02/27/2018 11:15 AM TESTER ELECTRONIC SCALE TRANSFUSE RED BLOOD CELLS Routine 02/27/2018 8:43 AM TESTER ELECTRONIC SCALE POC GLUCOSE Routine 02/27/2018 7:14 AM TESTER ELECTRONIC SCALE POC GLUCOSE Routine 02/27/2018 5:08 AM TESTER ELECTRONIC SCALE POC GLUCOSE Routine 02/27/2018 12:05 AM TESTER ELECTRONIC SCALE IONIZED CALCIUM Routine 02/27/2018 12:01 AM TESTER ELECTRONIC SCALE LACTIC ACID LEVEL Routine 02/27/2018 12:01 AM TESTER ELECTRONIC SCALE ESTIMATED GFR Routine 02/27/2018 12:01 AM TESTER ELECTRONIC SCALE PROTHROMBIN TIME WITH INR Routine 02/27/2018 12:01 AM TESTER ELECTRONIC SCALE PHOSPHORUS LEVEL Routine 02/27/2018 12:01 AM TESTER ELECTRONIC SCALE MAGNESIUM LEVEL Routine 02/27/2018 12:01 AM TESTER ELECTRONIC SCALE HC COMPLETE BLD COUNT Routine 02/27/2018 W/AUTO DIFF 12:01 AM TESTER ELECTRONIC SCALE BASIC METABOLIC PANEL Routine 02/27/2018 12:01 AM TESTER ELECTRONIC SCALE CBC HEMOGRAM Timed 02/26/2018 7:27 PM TESTER ELECTRONIC SCALE POC GLUCOSE Routine 02/26/2018 7:19 PM TESTER ELECTRONIC SCALE POC GLUCOSE Routine 02/26/2018 4:10 PM TESTER ELECTRONIC SCALE ESTIMATED GFR STAT 02/26/2018 3:13 PM TESTER ELECTRONIC SCALE BASIC METABOLIC PANEL STAT 02/26/2018 3:13 PM TESTER ELECTRONIC SCALE PROTHROMBIN TIME WITH INR STAT 02/26/2018 3:13 PM TESTER ELECTRONIC SCALE PHOSPHORUS LEVEL STAT 02/26/2018 3:13 PM TESTER ELECTRONIC SCALE PARTIAL THROMBOPLASTIN STAT 02/26/2018 TIME (PTT) 3:13 PM TESTER ELECTRONIC SCALE MAGNESIUM LEVEL STAT 02/26/2018 3:13 PM TESTER ELECTRONIC SCALE LDH STAT 02/26/2018 3:13 PM TESTER ELECTRONIC SCALE LACTIC ACID LEVEL STAT 02/26/2018 3:13 PM TESTER ELECTRONIC SCALE IONIZED CALCIUM STAT 02/26/2018 3:13 PM TESTER ELECTRONIC SCALE HC COMPLETE BLD COUNT STAT 02/26/2018 W/AUTO DIFF 3:13 PM TESTER ELECTRONIC SCALE INTRAOPERATIVE MONITORING Routine 02/26/2018 Pseudarthrosis after 3:05 PM TESTER ELECTRONIC SCALE fusion or arthrodesis TRANSFUSE RED BLOOD CELLS Routine 02/26/2018 11:12 AM TESTER ELECTRONIC SCALE HC COMPLETE BLD COUNT STAT 02/26/2018 W/AUTO DIFF 7:06 AM TESTER ELECTRONIC SCALE ESTIMATED GFR Routine 02/25/2018 7:12 PM TESTER ELECTRONIC SCALE HEMOGLOBIN & HEMATOCRIT Routine 02/25/2018 7:12 PM TESTER ELECTRONIC SCALE COMPREHENSIVE METABOLIC Routine 02/25/2018 PANEL 7:12 PM TESTER ELECTRONIC SCALE POC GLUCOSE Routine 02/25/2018 6:11 PM TESTER ELECTRONIC SCALE ESTIMATED GFR Routine 02/25/2018 4:15 PM TESTER ELECTRONIC SCALE PHOSPHORUS LEVEL Routine 02/25/2018 4:15 PM TESTER ELECTRONIC SCALE MAGNESIUM LEVEL Routine 02/25/2018 4:15 PM TESTER ELECTRONIC SCALE HC COMPLETE BLD COUNT Routine 02/25/2018 W/AUTO DIFF 4:15 PM TESTER ELECTRONIC SCALE BASIC METABOLIC PANEL Routine 02/25/2018 4:15 PM TESTER ELECTRONIC SCALE XR CHEST 1 VW PORTABLE STAT 02/25/2018 3:43 PM TESTER ELECTRONIC SCALE TRANSFUSE PLATELET Routine 02/25/2018 PHERESIS 2:38 PM TESTER ELECTRONIC SCALE PROTHROMBIN TIME WITH INR STAT 02/25/2018 2:13 PM TESTER ELECTRONIC SCALE FIBRINOGEN STAT 02/25/2018 2:13 PM TESTER ELECTRONIC SCALE CBC HEMOGRAM STAT 02/25/2018 2:13 PM TESTER ELECTRONIC SCALE TRANSFUSE FRESH FROZEN Routine 02/25/2018 PLASMA 2:02 PM TESTER ELECTRONIC SCALE SURGICAL PATHOLOGY Routine 02/25/2018 REQUEST 1:44 PM TESTER ELECTRONIC SCALE LACTIC ACID, SYRINGE STAT 02/25/2018 1:31 PM TESTER ELECTRONIC SCALE GLUCOSE LEVEL, SYRINGE STAT 02/25/2018 1:31 PM TESTER ELECTRONIC SCALE MAGNESIUM LEVEL STAT 02/25/2018 1:31 PM TESTER ELECTRONIC SCALE HEMOGLOBIN, SYRINGE STAT 02/25/2018 1:31 PM TESTER ELECTRONIC SCALE IONIZED CALCIUM, ARTERIAL STAT 02/25/2018 1:31 PM TESTER ELECTRONIC SCALE SODIUM LEVEL, SYRINGE STAT 02/25/2018 1:31 PM TESTER ELECTRONIC SCALE POTASSIUM, SYRINGE STAT 02/25/2018 1:31 PM TESTER ELECTRONIC SCALE ARTERIAL BLOOD GAS STAT 02/25/2018 1:31 PM TESTER ELECTRONIC SCALE OR FL > 1 HOUR Routine 02/25/2018 1:30 PM TESTER ELECTRONIC SCALE XR LUMBAR SPINE 1 VW Routine 02/25/2018 1:30 PM TESTER ELECTRONIC SCALE GRAM STAIN Routine 02/25/2018 12:37 PM TESTER ELECTRONIC SCALE URINE CULTURE Routine 02/25/2018 12:37 PM TESTER ELECTRONIC SCALE LACTIC ACID, SYRINGE STAT 02/25/2018 12:26 PM TESTER ELECTRONIC SCALE MAGNESIUM LEVEL STAT 02/25/2018 12:26 PM TESTER ELECTRONIC SCALE GLUCOSE LEVEL, SYRINGE STAT 02/25/2018 12:26 PM TESTER ELECTRONIC SCALE IONIZED CALCIUM, ARTERIAL STAT 02/25/2018 12:26 PM TESTER ELECTRONIC SCALE HEMOGLOBIN, SYRINGE STAT 02/25/2018 12:26 PM TESTER ELECTRONIC SCALE SODIUM LEVEL, SYRINGE STAT 02/25/2018 12:26 PM TESTER ELECTRONIC SCALE POTASSIUM, SYRINGE STAT 02/25/2018 12:26 PM TESTER ELECTRONIC SCALE ARTERIAL BLOOD GAS, STAT 02/25/2018 CORRECTED 12:26 PM TESTER ELECTRONIC SCALE TRANSFUSE RED BLOOD CELLS Routine 02/25/2018 12:00 PM TESTER ELECTRONIC SCALE TRANSFUSE RED BLOOD CELLS Routine 02/25/2018 11:01 AM TESTER ELECTRONIC SCALE LACTIC ACID, SYRINGE STAT 02/25/2018 11:00 AM TESTER ELECTRONIC SCALE MAGNESIUM LEVEL STAT 02/25/2018 11:00 AM TESTER ELECTRONIC SCALE ARTERIAL BLOOD GAS, STAT 02/25/2018 CORRECTED 11:00 AM TESTER ELECTRONIC SCALE POTASSIUM, SYRINGE STAT 02/25/2018 11:00 AM TESTER ELECTRONIC SCALE SODIUM LEVEL, SYRINGE STAT 02/25/2018 11:00 AM TESTER ELECTRONIC SCALE IONIZED CALCIUM, ARTERIAL STAT 02/25/2018 11:00 AM TESTER ELECTRONIC SCALE HEMOGLOBIN, SYRINGE STAT 02/25/2018 11:00 AM TESTER ELECTRONIC SCALE GLUCOSE LEVEL, SYRINGE STAT 02/25/2018 11:00 AM TESTER ELECTRONIC SCALE XR LUMBAR SPINE 1 VW Routine 02/25/2018 10:57 AM TESTER ELECTRONIC SCALE FUNGUS SMEAR Routine 02/25/2018 10:00 AM TESTER ELECTRONIC SCALE AFB STAIN Routine 02/25/2018 10:00 AM TESTER ELECTRONIC SCALE ANAEROBIC CULTURE Routine 02/25/2018 10:00 AM TESTER ELECTRONIC SCALE FUNGUS CULTURE Routine 02/25/2018 10:00 AM TESTER ELECTRONIC SCALE AFB CULTURE Routine 02/25/2018 10:00 AM TESTER ELECTRONIC SCALE CENTRAL LINE Routine 02/25/2018 9:30 AM TESTER ELECTRONIC SCALE Procedure Note - Maria A Daly MD - 02/25/2018 9:30 AM TESTER ELECTRONIC SCALE Central line Performed by: Maria A Daly MD Authorized by: Maria A Daly MD End Time: 02/25/2018 8:17 AM Staff: Performed by: Other staff Preprocedu re:patient identified , IV checked, site and side verified, risks and benefits discussed, procedure verified, surgical consent complete, patient position confirmed, monitors and equipment checked and pre-op evaluation complete MSBT: antiseptic used during central venous catheter insertion, all elements of maximal sterile barrier technique followed, hand hygiene performed prior to central venous catheter insertion, cap/gown used by other personnel during central venous catheter insertion, solutions labeled and all ports not used during insertion clamped Indication s: Indication s: Vascular access and central pressure monitoring Anesthesia : Anesthesia : General Procedure details: Patient position: Trendelenb urg Catheter Size: 8 Fr Catheter Site: internal jugular vein Catheter site laterality : Right Ultrasound guidance used: Yes Ultrasound image saved: Yes Number of attempts: 1 Successful placement: Yes Guidewire removal: Guidewire removal is confirmed Guidewire removal witnessed by: Maria A Daly MD Post-proce dure: Post-proce dure: line sutured, sterile dressing applied per protocol and ports flushed with saline Post-proce dure: Blood cleaned with CHG and sterile caps on all hubs Assessment : Blood return through all ports and free fluid flow Patient tolerance: Patient tolerated the procedure well with no immediate complicati ons Notes: Line placed by ER Resident Matt Mon under my supervisio n ARTERIAL LINE Routine 02/25/2018 9:25 AM TESTER ELECTRONIC SCALE Procedure Note - Maria A Daly MD - 02/25/2018 9:25 AM TESTER ELECTRONIC SCALE Arterial line Performed by: Maria A Daly MD Authorized by: Maria A Daly MD End Time: 02/25/2018 7:26 AM Staff: Performed by: Britney rajput Pre-proced ure: patient identified , IV checked, site and side verified, risks and benefits discussed, procedure verified, surgical consent complete, patient position confirmed, monitors and equipment checked and pre-op evaluation complete MSBT: antiseptic used, hand hygiene performed, cap/gown used by other personnel and solutions labeled Indication s: Indication s: multiple ABGs and hemodynami c monitoring Anesthesia : Anesthesia : General Procedure Details: Arterial Line placement: Placed post induction Line placement site: Radial Line placement side: Left Arterial line gauge: 20 G Post-proce dure: Post-proce dure: Sterile dressing applied Post procedure circulatio n, sensation, movement: Unable to assess Patient tolerance: Patient tolerated the procedure well with no immediate complicati ons ANESTHESIA INTUBATION Routine 02/25/2018 9:19 AM TESTER ELECTRONIC SCALE Procedure Note - Maria A Daly MD - 02/25/2018 9:19 AM TESTER ELECTRONIC SCALE ANESTHESIA INTUBATION Date/Time: 02/25/2018 8:31 AM Performed by: Maria A Daly MD Authorized by: Maria A Daly MD Difficult Airway: No Performed by: anesthesio logist Preoxygena karen with 100% O2: Yes Mask Ventilatio n: Easy mask Final Airway Type: Endotrache al airway Final Endotrache al Airway: ETT Cuffed: Yes Technique Used: Direct laryngosco py Devices/Me thods Used in Placement: Intubatin g stylet Insertion Site: Oral Blade Type: Beatris Laryngosco pe Blade/Vide olaryngosc ope Blade Size: 4 ETT Size (mm): 8.0 Cuff at minimum occlusion pressure: Yes Measured from: Lips ETT to Lips (cm): 24 Placement Verified by: CO2 detection, direct visualizat ion and equal breath sounds Laryngosco pic view: Grade IIb - view of arytenoids or posterior of glottis only Rapid Sequence Induction (RSI): No Number of Attempts at Approach: 2 First attempt by ER resident Matt Mon MD then myself FUSION, ANT AND POST 02/25/2018 Pseudarthrosis following SPINAL COLUMN, LUMBAR, 7:23 AM TESTER ELECTRONIC SCALE spinal fusion ANTERIOR AND POSTERIOR APPROACHES, W LUMBAR LAMINECTOMY Case Notes PRONE POSITION, C-ARM, CELL SAVER, SSEP'S WITH MOTORS, 90 CC ALLOGRAFT CANCELLOUS GRANULES, SUCTION BOVIE, AQUAMANTYS , DESIREE, CHERI SUCTION BOVIE, DEPUY, LAZARUS AXIS TABLE, MEDIUM HEMOVAC Special Needs PRONE POSITION, C-ARM, CELL SAVER, SSEP'S WITH MOTORS, 90 CC ALLOGRAFT CANCELLOUS GRANULES, SUCTION BOVIE, AQUAMANTYS , DESIREE, CHERI SUCTION BOVIE, DEPUY, LAZARUS AXIS TABLE MEDIUM HEMOVAC PREPARE RBC Routine 02/25/2018 4:06 AM TESTER ELECTRONIC SCALE PREPARE RBC Routine 02/25/2018 4:06 AM TESTER ELECTRONIC SCALE PREPARE RBC Routine 02/25/2018 4:06 AM TESTER ELECTRONIC SCALE PREPARE PLATELET PHERESIS Routine 02/25/2018 4:06 AM TESTER ELECTRONIC SCALE PREPARE FRESH FROZEN Routine 02/25/2018 PLASMA 4:06 AM TESTER ELECTRONIC SCALE PREPARE RBC Routine 02/25/2018 4:06 AM TESTER ELECTRONIC SCALE TYPE AND SCREEN Routine 02/25/2018 4:06 AM TESTER ELECTRONIC SCALE HC COMPLETE BLD COUNT Routine 02/25/2018 W/AUTO DIFF 4:06 AM TESTER ELECTRONIC SCALE PARTIAL THROMBOPLASTIN Routine 02/25/2018 TIME (PTT) 4:05 AM TESTER ELECTRONIC SCALE PROTHROMBIN TIME WITH INR Routine 02/25/2018 4:05 AM TESTER ELECTRONIC SCALE ESTIMATED GFR Routine 02/25/2018 4:00 AM TESTER ELECTRONIC SCALE BASIC METABOLIC PANEL Routine 02/25/2018 4:00 AM TESTER ELECTRONIC SCALE ESTIMATED GFR Routine 02/23/2018 4:00 AM TESTER ELECTRONIC SCALE PHOSPHORUS LEVEL Routine 02/23/2018 4:00 AM TESTER ELECTRONIC SCALE MAGNESIUM LEVEL Routine 02/23/2018 4:00 AM TESTER ELECTRONIC SCALE BASIC METABOLIC PANEL Routine 02/23/2018 4:00 AM TESTER ELECTRONIC SCALE HC COMPLETE BLD COUNT Routine 02/23/2018 W/AUTO DIFF 3:50 AM TESTER ELECTRONIC SCALE XR CHEST 1 VW PORTABLE Today 02/22/2018 12:01 PM TESTER ELECTRONIC SCALE URINALYSIS, AUTOMATED STAT 02/22/2018 WITH MICROSCOPY 11:34 AM TESTER ELECTRONIC SCALE POC GLUCOSE Routine 02/20/2018 7:09 AM TESTER ELECTRONIC SCALE CBC HEMOGRAM Routine 02/20/2018 4:35 AM TESTER ELECTRONIC SCALE US DUPLEX VENOUS LOWER Routine 02/20/2018 EXTREMITY BILATERAL 4:30 AM TESTER ELECTRONIC SCALE LACTIC ACID LEVEL STAT 02/19/2018 10:07 PM TESTER ELECTRONIC SCALE HEMOGLOBIN & HEMATOCRIT Routine 02/19/2018 7:59 PM TESTER ELECTRONIC SCALE POC GLUCOSE Routine 02/19/2018 6:53 PM TESTER ELECTRONIC SCALE TRANSFUSE RED BLOOD CELLS STAT 02/19/2018 1:33 PM TESTER ELECTRONIC SCALE XR ABDOMEN 1 VW PORTABLE STAT 02/19/2018 12:00 PM TESTER ELECTRONIC SCALE XR CHEST 1 VW PORTABLE STAT 02/19/2018 12:00 PM TESTER ELECTRONIC SCALE ESTIMATED GFR STAT 02/19/2018 11:36 AM TESTER ELECTRONIC SCALE BASIC METABOLIC PANEL STAT 02/19/2018 11:36 AM TESTER ELECTRONIC SCALE MAGNESIUM LEVEL STAT 02/19/2018 11:36 AM TESTER ELECTRONIC SCALE LACTIC ACID LEVEL STAT 02/19/2018 11:36 AM TESTER ELECTRONIC SCALE FIBRINOGEN STAT 02/19/2018 11:36 AM TESTER ELECTRONIC SCALE PARTIAL THROMBOPLASTIN STAT 02/19/2018 TIME (PTT) 11:36 AM TESTER ELECTRONIC SCALE PROTHROMBIN TIME WITH INR STAT 02/19/2018 11:36 AM TESTER ELECTRONIC SCALE IONIZED CALCIUM STAT 02/19/2018 11:36 AM TESTER ELECTRONIC SCALE ARTERIAL BLOOD GAS STAT 02/19/2018 11:36 AM TESTER ELECTRONIC SCALE HC COMPLETE BLD COUNT STAT 02/19/2018 W/AUTO DIFF 11:33 AM TESTER ELECTRONIC SCALE INTRAOPERATIVE MONITORING Routine 02/19/2018 Pseudarthrosis after 11:29 AM TESTER ELECTRONIC SCALE fusion or arthrodesis SURGICAL PATHOLOGY Routine 02/19/2018 REQUEST 11:09 AM TESTER ELECTRONIC SCALE OR FL > 1 HOUR Routine 02/19/2018 10:17 AM TESTER ELECTRONIC SCALE UT AN ELECTIVE Routine 02/19/2018 ENDOTRACHEAL AIRWAY 9:06 AM TESTER ELECTRONIC SCALE FUSION, ANT AND POST 02/19/2018 Pseudarthrosis following SPINAL COLUMN, LUMBAR, 7:28 AM TESTER ELECTRONIC SCALE spinal fusion ANTERIOR AND POSTERIOR APPROACHES, W LUMBAR LAMINECTOMY Case Notes NO ANTERIOR EXPOSURE PHYSICIAN PER OFFICE Special Needs NO ANTERIOR EXPOSURE PHYSICIAN PER OFFICE, LATERAL POSITION, C-ARM, CELL SAVER, SSEP MOTORS, 90 CC ALLOGRAFT CANCELLOUS GRANULES, SUCTION BOVIE, AQUAMANTYS , DESIREE, CHERI SUCTION BOVIE, DEPUY PREPARE FRESH FROZEN Routine 02/12/2018 PLASMA 9:03 AM TESTER ELECTRONIC SCALE PREPARE RBC Routine 02/12/2018 9:03 AM TESTER ELECTRONIC SCALE PREPARE RBC Routine 02/12/2018 9:03 AM TESTER ELECTRONIC SCALE TYPE AND SCREEN Routine 02/12/2018 Preop testing 9:03 AM TESTER ELECTRONIC SCALE MRI THORACIC SPINE WO Routine 12/29/2017 Chronic low back pain CONTRAST 9:00 AM TESTER ELECTRONIC SCALE without sciatica, unspecified back pain laterality 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 CT LUMBAR SPINE WO Routine 12/29/2017 Chronic low back pain CONTRAST 8:53 AM TESTER ELECTRONIC SCALE without sciatica, unspecified back pain laterality 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 ECHOCARDIOGRAM 2D Routine 12/17/2017 COMPLETE W MMODE SPECTRAL 10:24 AM TESTER ELECTRONIC SCALE COLOR DOPPLER ([id number]) US CAROTID DUPLEX Routine 12/17/2017 BILATERAL 9:42 AM TESTER ELECTRONIC SCALE ESTIMATED GFR Routine 12/17/2017 4:16 AM TESTER ELECTRONIC SCALE LIPID PANEL Routine 12/17/2017 4:16 AM TESTER ELECTRONIC SCALE T4, FREE Routine 12/17/2017 4:16 AM TESTER ELECTRONIC SCALE THYROID STIMULATING Routine 12/17/2017 HORMONE 4:16 AM TESTER ELECTRONIC SCALE PHOSPHORUS LEVEL Routine 12/17/2017 4:16 AM TESTER ELECTRONIC SCALE MAGNESIUM LEVEL Routine 12/17/2017 4:16 AM TESTER ELECTRONIC SCALE BASIC METABOLIC PANEL Routine 12/17/2017 4:16 AM TESTER ELECTRONIC SCALE CBC HEMOGRAM Routine 12/17/2017 4:16 AM TESTER ELECTRONIC SCALE TROPONIN Routine 12/16/2017 11:54 PM TESTER ELECTRONIC SCALE LACTIC ACID LEVEL Routine 12/16/2017 11:54 PM TESTER ELECTRONIC SCALE EEG AWAKE/DROWSY LESS Routine 12/16/2017 THAN 41 MIN 9:29 PM TESTER ELECTRONIC SCALE MRI BRAIN W WO CONTRAST Routine 12/16/2017 8:46 PM TESTER ELECTRONIC SCALE URINALYSIS SCREEN AND Routine 12/16/2017 MICROSCOPY, WITH REFLEX 5:22 PM TESTER ELECTRONIC SCALE TO CULTURE URINE CULTURE Routine 12/16/2017 5:20 PM TESTER ELECTRONIC SCALE LACTIC ACID LEVEL, SEPSIS Timed 12/16/2017 - NOW AND REPEAT 2X EVERY 5:19 PM TESTER ELECTRONIC SCALE 3 HOURS TROPONIN Timed 12/16/2017 5:19 PM TESTER ELECTRONIC SCALE HEMOGLOBIN A1C Timed 12/16/2017 5:19 PM TESTER ELECTRONIC SCALE ESTIMATED GFR STAT 12/16/2017 1:59 PM TESTER ELECTRONIC SCALE B NATRIURETIC PEPTIDE STAT 12/16/2017 1:59 PM TESTER ELECTRONIC SCALE TROPONIN STAT 12/16/2017 1:59 PM TESTER ELECTRONIC SCALE CREATINE KINASE, TOTAL STAT 12/16/2017 (CPK) 1:59 PM TESTER ELECTRONIC SCALE LIPASE LEVEL STAT 12/16/2017 1:59 PM TESTER ELECTRONIC SCALE MAGNESIUM LEVEL STAT 12/16/2017 1:59 PM TESTER ELECTRONIC SCALE LACTIC ACID LEVEL, SEPSIS STAT 12/16/2017 - NOW AND REPEAT 2X EVERY 1:59 PM TESTER ELECTRONIC SCALE 3 HOURS COMPREHENSIVE METABOLIC STAT 12/16/2017 PANEL 1:59 PM TESTER ELECTRONIC SCALE TYPE AND SCREEN Routine 12/16/2017 1:59 PM TESTER ELECTRONIC SCALE PARTIAL THROMBOPLASTIN STAT 12/16/2017 TIME (PTT) 1:59 PM TESTER ELECTRONIC SCALE PROTHROMBIN TIME WITH INR STAT 12/16/2017 1:59 PM TESTER ELECTRONIC SCALE HC COMPLETE BLD COUNT STAT 12/16/2017 W/AUTO DIFF 1:59 PM TESTER ELECTRONIC SCALE POC GLUCOSE Routine 12/16/2017 1:49 PM TESTER ELECTRONIC SCALE ECG 12-LEAD STAT 12/16/2017 1:[address] E[address] SC[address] CT SPINE EXTERNAL STUDY STAT 12/01/2017 12:34 PM CDT MRI SPINE EXTERNAL STUDY STAT 12/01/2017 11:40 AM CDT XR SPINE EXTERNAL STUDY STAT 12/01/2017 11:21 AM CDT XR SPINE EXTERNAL STUDY STAT 12/01/2017 11:19 AM CDT after 10/18/2017 Results * XR Spine Scoliosos 2-3 Views (08/18/2018 8:47 AM CDT) Only the most recent of 4 results within the time period is included. Specimen Narrative Performed At [facility] AP lateral scoliosis x-ray shows instrumentation from T9-L5 with multilevel interbody instrumentation in the distal lumbar spine and large mesh cage at the level of L2-3 that appears to be spanning into the body of both levels.There is a secondary eleuterio on the right attached to the initial construct.There is no evidence of hardware failure or lucency or adjacent segment breakdown.Patient has severe degenerative changes in the cervical spine but the overall sagittal and coronal alignment is well-maintained with no evidence of acute hardware failure.The right hip also has severe osteoarthritis noted on this view. Performing Organization Address City/State/Zipcode Phone Number ROBERTO [address] [place] [address] * CT Abdomen WWO Contrast, Pelvis W Contrast (07/08/2018 12:07 PM CDT) Specimen Narrative Performed At EXAMINATION:CT ABDOMEN WWO CONTRAST PELVIS W CONTRAST [facility] CLINICAL HISTORY: 67 years Male R10.9 Unspecified abdominal pain, G89.18 Other acute postprocedural pain, mass TECHNIQUE:Noncontrast images of the abdomen were obtained. Subsequently, axial images of the abdomen and pelvis were obtained following intravenous administration of iodinated contrast. Sagittal and coronal computerized reformatted images were also obtained. CT imaging was performed with iterative reconstruction techniques and/or automated exposure control to reduce radiation dose. COMPARISON:To a previous examination from 03/30/2018 IMPRESSION: Abdomen: 1. Internal fixation across the lower thoracic and lumbar spine are present. 2.A small left pleural effusion is partially visualized. 3.The liver and the spleen are normal in appearance. The pancreas is slightly small in the adrenal glands are normal in appearance. 4.Both kidneys are normal in appearance. Remodeling and ankylosis is noted involving the left 10th and 11th ribs in the posterior axillary line. Extensive bony ankylosis extending from the left lateral margin of the L1 vertebral body the proximal portion of the left 12th rib is noted. Pelvis: 1. There is extensive dense of soft tissue and fluid density involving the soft tissues posterior to the lumbar spine and involving the psoas muscles bilaterally slightly greater on the left side. Infection in these areas cannot be excluded. Findings have improved since 03/30/2018. 2.The appendix is normal in appearance. 3.No bowel distention is appreciated. 4.Very severe arthritic changes are noted involving both hip joints, greater on the right side. 5.There is no evidence of pelvic mass. [facility]-[id number] Procedure Note [facility], Radiology Results Incoming - 07/08/2018 12:30 PM CDT EXAMINATION: CT ABDOMEN WWO CONTRAST PELVIS W CONTRAST CLINICAL HISTORY: 67 years Male R10.9 Unspecified abdominal pain, G89.18 Other acute postprocedural pain, mass TECHNIQUE: Noncontrast images of the abdomen were obtained. Subsequently, axial images of the abdomen and pelvis were obtained following intravenous administration of iodinated contrast. Sagittal and coronal computerized reformatted images were also obtained. CT imaging was performed with iterative reconstruction techniques and/or automated exposure control to reduce radiation dose. COMPARISON: To a previous examination from 03/30/2018 IMPRESSION: Abdomen: 1. Internal fixation across the lower thoracic and lumbar spine are present. 2. A small left pleural effusion is partially visualized. 3. The liver and the spleen are normal in appearance. The pancreas is slightly small in the adrenal glands are normal in appearance. 4. Both kidneys are normal in appearance. Remodeling and ankylosis is noted involving the left 10th and 11th ribs in the posterior axillary line. Extensive bony ankylosis extending from the left lateral margin of the L1 vertebral body the proximal portion of the left 12th rib is noted. Pelvis: 1. There is extensive dense of soft tissue and fluid density involving the soft tissues posterior to the lumbar spine and involving the psoas muscles bilaterally slightly greater on the left side. Infection in these areas cannot be excluded. Findings have improved since 03/30/2018. 2. The appendix is normal in appearance. 3. No bowel distention is appreciated. 4. Very severe arthritic changes are noted involving both hip joints, greater on the right side. 5. There is no evidence of pelvic mass. [facility]-[id number] Performing Organization Address City/[facility]/Zipcode Phone Number [facility] [address] [place] [address] * Estimated GFR (07/08/2018 9:48 AM CDT) Only the most recent of 20 results within the time period is included. [facility] Estimated GFR >=90 mL/min/1.73 m2 [place] Comment: AM[facility] rpretation G1 >=90 Normal or high G2 60-89Mildly decreased G0i80-06 Mildly to moderately decreased [id number] Moderately to severely decreased G4 15-29Severely decreased G5 <15Kidney failure The eGFR was calculated using the Chronic Kidney Disease Epidemiology Collaboration (CKD-EPI) equation. Interpretation is based on recommendations of the National Kidney Foundation-Kidney Disease Outcomes Quality Initiative (NKF-KDOQI) published in 2014. Specimen Blood Performing Organization Address [facility] Phone Number [facility] DEPARTMENT OF [address] [place] [address] PATHOLOGY AND GENOMIC MEDICINE [address] * POC creatinine (07/08/2018 9:48 AM CDT) [facility] POC creatinine 0.9 0.7 - 1.2 mg/dl [place] Comment: AMISH Meter ID: [id number] HOSPITAL Slitter Cut Off Operator: Bobby Acosta Specimen Blood Performing Organization Address [facility] Cent[facility] Phone Number [facility] DEPARTMENT OF [address] [place] [address] PATHOLOGY AND GENOMIC MEDICINE [address] * XR Chest 1 Vw Portable (04/02/2018 8:42 AM TESTER ELECTRONIC SCALE) Only the most recent of 8 results within the time period is included. Specimen Narrative Performed At EXAMINATION:XR CHEST 1 VW PORTABLE [facility] CLINICAL HISTORY:coughpleural effusion COMPARISON:March 31, 2018 chest IMPRESSION: Increasing patchy infiltrate left base. There is a small left pleural effusion as on previous. Developing mild central vascular prominence The Cardiomediastinal silhouette remains normal size. Underlying COPD Slight spinal fixators as before Single view [id number] Procedure Note Interface, Radiology Results Incoming - 04/02/2018 8:49 AM TESTER ELECTRONIC SCALE EXAMINATION: XR CHEST 1 VW PORTABLE CLINICAL HISTORY: cough pleural effusion COMPARISON: March 31, 2018 chest IMPRESSION: Increasing patchy infiltrate left base. There is a small left pleural effusion as on previous. Developing mild central vascular prominence The Cardiomediastinal silhouette remains normal size. Underlying COPD Slight spinal fixators as before Single view [id number] Performing Organization Address City/[facility] Cent[facility]ode Phone Number [facility] [address] [place] [address] * Phosphorus level (04/02/2018 4:00 AM TESTER ELECTRONIC SCALE) Only the most recent of 14 results within the time period is included. Phosphorus 2.8 2.4 - 4.5 mg/dL [facility] Specimen Plasma specimen Performing Organization Address [facility] Phone Number [facility] DEPARTMENT OF [address] [place] [address] PATHOLOGY AND GENOMIC MEDICINE [address] * Magnesium level (04/02/2018 4:00 AM TESTER ELECTRONIC SCALE) Only the most recent of 21 results within the time period is included. Magnesium 1.7 1.6 - 2.4 mg/dL [facility] Specimen Plasma specimen Performing Organization Address [facility] Phone Number [facility] DEPARTMENT OF [address] [place] [address] PATHOLOGY AND GENOMIC MEDICINE [address] * Basic metabolic panel (04/02/2018 4:00 AM TESTER ELECTRONIC SCALE) Only the most recent of 13 results within the time period is included. Sodium 144 135 - 148 mEq/L [facility] Potassium 3.6 3.5 - 5.0 mEq/L [facility] Chloride 108 98 - 112 mEq/L [facility] CO2 26 24 - 31 mEq/L [facility] Anion gap 10@ANIO 7 - 15 mEq/L [facility] BUN 13 8 - 23 mg/dL [facility] Creatinine 0.74 0.70 - 1.20 mg/dL [facility] Glucose 91 65 - 99 mg/dL [facility] Calcium 8.9 8.8 - 10.2 mg/dL [facility] Specimen Plasma specimen Performing Organization Address City/[facility]/Zipcode Phone Number [facility] DEPARTMENT OF [address] [place] [id number] PATHOLOGY AND GENOMIC MEDICINE [address] * CBC with platelet and differential (04/02/2018 3:47 AM TESTER ELECTRONIC SCALE) Only the most recent of 19 results within the time period is included. WBC 6.47 4.50 - 11.00 k/uL [facility] RBC 4.01 (L) 4.40 - 6.00 m/uL [facility] HGB 11.1 (L) 14.0 - 18.0 g/dL [facility] HCT 36.2 (L) 41.0 - 51.0 % [facility] MCV 90.3 82.0 - 100.0 fL [facility] MCH 27.7 27.0 - 34.0 pg [facility] MCHC 30.7 (L) 31.0 - 37.0 g/dL [facility] RDW - SD 46.3 37.0 - 55.0 fL [facility] MPV 9.4 8.8 - 13.2 fL [facility] Platelet count 215 150 - 400 k/uL [facility] Nucleated RBC 0.00 /100 WBC [facility] Neutrophils 59.1 39.0 - 69.0 % [facility] Lymphocytes 29.8 25.0 - 45.0 % [facility] Monocytes 8.7 0.0 - 10.0 % [facility] Eosinophils 1.5 0.0 - 5.0 % [facility] Basophils 0.6 0.0 - 1.0 % [facility] Immature 0.3Comment: "Immature 0.0 - 1.0 % [place] granulocytes granulocytes" (promyelocytes, AMISH myelocytes, metamyelocytes) HOSPITAL Specimen Blood Performing Organization Address City/[facility]/Zipcode Phone Number [facility] DEPARTMENT OF [address] [place] [id number] PATHOLOGY AND GENOMIC MEDICINE [address] * Cytology (non-gynecological) request (03/31/2018 1:06 PM TESTER ELECTRONIC SCALE) [facility] DEPARTMENT OF PATHOLOGY AND GENOMIC MEDICINE Cytology See link below for PDF Lab [facility] DEPARTMENT (non-gynecologi Report OF PATHOLOGY mk) report AND GENOMIC MEDICINE Result status This is Final Report for [facility] DEPARTMENT [id number] OF PATHOLOGY AND GENOMIC MEDICINE Specimen Performing Organization Address City/[facility]/Zipcode Phone Number [facility] DEPARTMENT OF [address] [place] [address] PATHOLOGY AND GENOMIC MEDICINE * XR Chest 1 Vw (03/31/2018 10:58 AM TESTER ELECTRONIC SCALE) Specimen Narrative Performed At EXAMINATION:XR CHEST 1 VW [facility] CLINICAL HISTORY:Post thoracentesis COMPARISON:March 04 IMPRESSION: 1. Vasculature is currently within normal limits. Minimal residual hazy opacity within the left base demonstrates an appearance most suggestive of atelectasis, though some component of infiltrate cannot be excluded. There has otherwise been significant interval clearing of the lungs. 2. There is no visible pneumothorax status post thoracentesis. No acute osseous pathology. [facility]-[id number] Procedure Note [facility], Radiology Results Incoming - 03/31/2018 11:14 AM TESTER ELECTRONIC SCALE EXAMINATION: XR CHEST 1 VW CLINICAL HISTORY: Post thoracentesis COMPARISON: March 04 IMPRESSION: 1. Vasculature is currently within normal limits. Minimal residual hazy opacity within the left base demonstrates an appearance most suggestive of atelectasis, though some component of infiltrate cannot be excluded. There has otherwise been significant interval clearing of the lungs. 2. There is no visible pneumothorax status post thoracentesis. No acute osseous pathology. [facility]-[id number] Performing Organization Address City/[facility]/Zipcode Phone Number [facility] [address] [place] [address] * US Thoracentesis With Imaging (03/31/2018 10:49 AM TESTER ELECTRONIC SCALE) Specimen Narrative Performed At EXAMINATION:US THORACENTESIS WITH IMAGING [facility] CLINICAL HISTORY:Pleural effusion COMPARISON:None. TECHNIQUE: The procedure's risks, benefits, and alternatives were discussed with the patient and written, informed consent was obtained. Using ultrasound guidance, the left pleural effusion was localized and the overlying posterior chest was prepped and draped in the usual sterile fashion. 1% buffered lidocaine was used for local anesthesia. A 5 Ghanaian [employer] catheter was inserted into the pleural space and 1.2 L of pleural fluid was removed. The fluid was sent to the lab for the requested studies. Post procedure images reveal a small residual effusion. The patient tolerated the procedure without difficulty and was discharged to the radiology recovery area for postprocedure chest x-ray prior to discharge. EBL: None. COMPLICATIONS: None. SPECIMENS: As above. ASSISTANTS: None. IMPRESSION: Technically successful ultrasound-guided left-sided diagnostic and therapeutic thoracentesis. [facility]-[id number] Procedure Note [facility], Radiology Results Incoming - 03/31/2018 1:51 PM TESTER ELECTRONIC SCALE EXAMINATION: US THORACENTESIS WITH IMAGING CLINICAL HISTORY: Pleural effusion COMPARISON:None. TECHNIQUE: The procedure's risks, benefits, and alternatives were discussed with the patient and written, informed consent was obtained. Using ultrasound guidance, the left pleural effusion was localized and the overlying posterior chest was prepped and draped in the usual sterile fashion. 1% buffered lidocaine was used for local anesthesia. A 5 Ghanaian [employer] catheter was inserted into the pleural space and 1.2 L of pleural fluid was removed. The fluid was sent to the lab for the requested studies. Post procedure images reveal a small residual effusion. The patient tolerated the procedure without difficulty and was discharged to the radiology recovery area for postprocedure chest x-ray prior to discharge. EBL: None. COMPLICATIONS: None. SPECIMENS: As above. ASSISTANTS: None. IMPRESSION: Technically successful ultrasound-guided left-sided diagnostic and therapeutic thoracentesis. [facility]-[id number] Performing Organization Address [facility] [place] [address] * Body fluid consult (03/31/2018 10:16 AM TESTER ELECTRONIC SCALE) Body fluid SEE COMMENT HARVEY consult Comment: AMISH Footnote--------- HOSPITAL MIXED ACUTE AND CHRONIC INFLAMMATORY CELLS AND REACTIVE MESOTHELIAL CELLS. Reviewed by Meagan Naranjo M.D. Specimen Fluid Performing Organization Address [facility]/Zipcode Phone Number [facility] [place] [place] [address] PATHOLOGY AND GENOMIC MEDICINE [place] [facility]ISH [address] [place] [address] HOSPITAL * Aerobic culture (03/31/2018 10:16 AM TESTER ELECTRONIC SCALE) Aerobic culture No growth after 3 days. HARVEY isolate Comment: AMISH Specimen Information HOSPITAL Specimen Source: Thoracentesis fluid Specimen Site: Pleural Fluid Specimen Thoracentesis fluid - Pleural Fluid Performing Organization Address [facility] Cent[facility]ode Phone Number [facility] DEPARTMENT [place] [phone] PATHOLOGY AND GENOMIC MEDICINE [place] AMISH [address] [place] [address] HOSPITAL * Gram stain (03/31/2018 10:16 AM TESTER ELECTRONIC SCALE) Only the most recent of 2 results within the time period is included. Gram stain Few WBC's [facility] isolate No organisms seen [facility]ISH Comment: HOSPITAL Specimen Information Specimen Source: Thoracentesis fluid Specimen Site: Pleural Fluid Specimen Thoracentesis fluid - Pleural Fluid Performing Organization Address [facility] Phone Number [facility] [place] [place] [address] PATHOLOGY AND GENOMIC MEDICINE [place] [facility] [address] [place] [address] HOSPITAL * AFB stain (03/31/2018 10:16 AM TESTER ELECTRONIC SCALE) Only the most recent of 2 results within the time period is included. Pathologist [facility] AFB stain No acid fast bacilli (AFB) [place] seen. AMISH Comment: HOSPITAL Specimen Information Specimen Source: Thoracentesis fluid Specimen Site: Pleural Fluid Specimen Thoracentesis fluid - Pleural Fluid Performing Organization Address [facility] Phone Number [facility] [place] [address] PATHOLOGY AND GENOMIC [place] [address] HOSPITAL * Anaerobic culture (03/31/2018 10:16 AM TESTER ELECTRONIC SCALE) Only the most recent of 2 results within the time period is included. Pathologist [facility] Anaerobic No anaerobic organisms [facility] culture isolate isolated. [facility]ISH Comment: HOSPITAL Specimen Information Specimen Source: Thoracentesis fluid Specimen Site: Pleural Fluid Specimen Thoracentesis fluid - Pleural Fluid Performing Organization Address [facility] Phone Number [facility] DEPARTMENT OF [address] [place] [address] PATHOLOGY AND GENOMIC MEDICINE [place] [facility] [address] [place] [address] HOSPITAL * Cell count and differential, body fluid (03/31/2018 10:16 AM TESTER ELECTRONIC SCALE) Misc fluid type Pleural [facility] Color, fluid Red [facility] Appearance, Cloudy (A) [facility] RBC, fluid 33,000 /CMM [facility] Nucleated 1,337 /CMM [place] cells, [facility] Fluid See DiffComment: Reviewed by CANDICE Naranjo M.D. [facility] Neutrophils, 11 % [facility] Lymphocytes, 56 % [facility] Mesothelial 9 % [place] cells, fluid [facility] Macrophages, 24 % [facility] Fluid 0 % [place] unclassified [facility] Specimen Fluid Performing Organization Address City/State/[facility] Cent[facility]ode Phone Number [facility] [place] [address] PATHOLOGY AND [facility] MEDICINE [address] * Protein, misc fluid (03/31/2018 10:16 AM TESTER ELECTRONIC SCALE) Fluid type Pleural [facility] Protein, fluid 3.2 g/dL [place] Comment: [facility] Analysis performed on [facility] 8000 analyzer. This is not an approved methodology for this specimen type;accuracy and clinical significance uncertain. Specimen Fluid Performing Organization Address City/[facility] Cent[facility]ode Phone Number [facility] [place] [place] [address] PATHOLOG[address] * LDH, misc fluid (03/31/2018 10:16 AM TESTER ELECTRONIC SCALE) Pathologist [facility] Fluid type Pleural [facility] LDH, fluid 205 U/L [place] Comment: [facility] Analysis performed on [facility] 8000 analyzer. This is not an approved methodology for this specimen type;accuracy and clinical significance uncertain. Specimen Fluid Performing Organization Address City/[facility] Phone Number [facility] [place] [address] PATHOLOGY [address] * Glucose level, misc fluid (03/31/2018 10:16 AM TESTER ELECTRONIC SCALE) Fluid type Pleural [facility] Glucose, fluid 108 mg/dL [facility] Comment: AMISH Analysis performed on [facility] 8000 analyzer. This is not an approved methodology for this specimen type;accuracy and clinical significance uncertain. Specimen Fluid Performing Organization Address City/State/Zipcode Phone Number [facility] DEPARTMENT OF [address] [place] [address] PATHOLOGY AND [facility] MEDICINE [address] * AFB culture (03/31/2018 9:16 AM TESTER ELECTRONIC SCALE) Only the most recent of 2 results within the time period is included. [facility] AFB culture No growth after 6 weeks of [place] isolate incubation. [facility]ISH Comment: HOSPITAL Specimen Information Specimen Source: Thoracentesis fluid Specimen Site: Pleural Fluid Specimen Thoracentesis fluid - Pleural Fluid Performing Organization Address City/State/Zipcode Phone Number [facility] DEPARTMENT OF [address] [place] [address] PATHOLOGY AND GENOMIC MEDICINE ODESSA AM[facility] [address] [place] [address] HOSPITAL * CTA Abdomen W Wo Contrast (03/30/2018 10:19 PM TESTER ELECTRONIC SCALE) Specimen Narrative Performed At EXAMINATION:CT ANGIOGRAM ABDOMEN W CONTRAST RADIANT CLINICAL HISTORY:hypotensionhistory of L1 body fracturerule out vessel compressiom TECHNIQUE: Multiple CT angiographic images of the abdomen and pelvis were obtained during intravenous administration of iodinated contrast. Multiple computerized reformatted images as well as 3-D volume rendered images were also obtained. - CT imaging was performed with iterative reconstruction technique and/or automated exposure control to reduce radiation dose. COMPARISON:CT lumbar spine dated 02/28/2018 IMPRESSION: CTA: No aortic aneurysm, dissection, or pseudoaneurysm. Descending thoracic aorta measures 2.3 cm. Aorta at the diaphragmatic hiatus measures 2 cm. Suprarenal abdominal aorta measures 1.9 cm. Infrarenal abdominal aorta measures 1.5 cm. Celiac artery and major branches are normal. Superior mesenteric artery and major branches are normal. Inferior mesenteric artery demonstrates minimal atherosclerotic disease without significant stenosis. Inferior mesenteric artery and major branches are otherwise unremarkable. The bilateral renal arteries are normal. Minimal atherosclerotic calcification is seen of the bilateral common iliac arteries. Bilateral external iliac arteries, common femoral arteries, and femoral arteries are unremarkable. No evidence for active arterial extravasation. Abdomen/pelvis: There is a large left pleural effusion and trace right pleural effusion. Near-total collapse of the left lower lobe is seen. Some atelectasis of the right lower lobe is seen. Focal fatty infiltration along the falciform ligament of the liver is seen. Liver is otherwise unremarkable. Density is seen layering within the lumen of the gallbladder suggestive of sludge or gallstones. No wall thickening or pericholecystic fluid. Spleen, pancreas, adrenal glands are normal. A 1 cm cyst is seen of interpolar right kidney. No further workup necessary. Left kidney is normal. There is anterior displacement left kidney secondary to the soft tissue thickening, fluid, and scarring in the left retroperitoneum. No hydronephrosis or hydroureter. The bladder is unremarkable. Some mid mesenteric edema is seen of the right upper abdomen, similar to previous exams. No ascites or free intraperitoneal air. 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 No gastrointestinal tract obstruction. The appendix is normal. Diverticulosis is seen without diverticulitis. Postoperative appearance of lower thoracic and lumbar spine is seen. Since 02/28/2018, hardware has been placed at L2, replacing the fractured vertebral body. Changes of posterior laminectomy and fusion are again seen. In the perivertebral soft tissues, soft tissue thickening and dystrophic calcifications are seen, compatible with scarring and changes of recent surgery. In the left retroperitoneum, there is a 5.7 x 3.6 x 6.5 cm fluid collection without distinct enhancing feng. Given the recent surgery, this is thought to reflect postoperative seroma. Edema and fluid are seen in the soft tissues posterior to the lumbar spine without a distinct fluid collection. Mild anasarca. Summary: No aortic aneurysm, dissection, or pseudoaneurysm. No aortic injury or compression is seen on this exam. No evidence for active arterial extravasation. Density is seen layering within the lumen of the gallbladder suggestive of sludge or gallstones. Postoperative appearance of lower thoracic and lumbar spine is seen. Since 02/28/2018, hardware has been placed at L2 replacing the fractured vertebral body. In the perivertebral soft tissues, soft tissue thickening and dystrophic calcifications are seen, compatible with scarring and changes of surgery. In the left retroperitoneum, a 5.7 x 3.6 x 6.5 cm fluid collection is seen without distinct feng. This is thought to reflect postoperative seroma given the recent surgery. Edema and fluid are also seen in the soft tissues posterior to the lumbar spine without a distinct fluid collection. Follow-up to resolution is advised. [facility]-[id number] Procedure Note [facility], Radiology Results Incoming - 03/31/2018 6:43 AM TESTER ELECTRONIC SCALE EXAMINATION: CT ANGIOGRAM ABDOMEN W CONTRAST CLINICAL HISTORY: hypotension history of L1 body fracture rule out vessel compressiom TECHNIQUE: Multiple CT angiographic images of the abdomen and pelvis were obtained during intravenous administration of iodinated contrast. Multiple computerized reformatted images as well as 3-D volume rendered images were also obtained. - CT imaging was performed with iterative reconstruction technique and/or automated exposure control to reduce radiation dose. COMPARISON: CT lumbar spine dated 02/28/2018 IMPRESSION: CTA: No aortic aneurysm, dissection, or pseudoaneurysm. Descending thoracic aorta measures 2.3 cm. Aorta at the diaphragmatic hiatus measures 2 cm. Suprarenal abdominal aorta measures 1.9 cm. Infrarenal abdominal aorta measures 1.5 cm. Celiac artery and major branches are normal. Superior mesenteric artery and major branches are normal. Inferior mesenteric artery demonstrates minimal atherosclerotic disease without significant stenosis. Inferior mesenteric artery and major branches are otherwise unremarkable. The bilateral renal arteries are normal. Minimal atherosclerotic calcification is seen of the bilateral common iliac arteries. Bilateral external iliac arteries, common femoral arteries, and femoral arteries are unremarkable. No evidence for active arterial extravasation. Abdomen/pelvis: There is a large left pleural effusion and trace right pleural effusion. Near- total collapse of the left lower lobe is seen. Some atelectasis of the right lower lobe is seen. Focal fatty infiltration along the falciform ligament of the liver is seen. Liver is otherwise unremarkable. Density is seen layering within the lumen of the gallbladder suggestive of sludge or gallstones. No wall thickening or pericholecystic fluid. Spleen, pancreas, adrenal glands are normal. A 1 cm cyst is seen of interpolar right kidney. No further workup necessary. Left kidney is normal. There is anterior displacement left kidney secondary to the soft tissue thickening, fluid, and scarring in the left retroperitoneum. No hydronephrosis or hydroureter. The bladder is unremarkable. Some mid mesenteric edema is seen of the right upper abdomen, similar to previous exams. No ascites or free intraperitoneal air. 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 No gastrointestinal tract obstruction. The appendix is normal. Diverticulosis is seen without diverticulitis. Postoperative appearance of lower thoracic and lumbar spine is seen. Since 02/28/2018, hardware has been placed at L2, replacing the fractured vertebral body. Changes of posterior laminectomy and fusion are again seen. In the perivertebral soft tissues, soft tissue thickening and dystrophic calcifications are seen, compatible with scarring and changes of recent surgery. In the left retroperitoneum, there is a 5.7 x 3.6 x 6.5 cm fluid collection without distinct enhancing feng. Given the recent surgery, this is thought to reflect postoperative seroma. Edema and fluid are seen in the soft tissues posterior to the lumbar spine without a distinct fluid collection. Mild anasarca. Summary: No aortic aneurysm, dissection, or pseudoaneurysm. No aortic injury or compression is seen on this exam. No evidence for active arterial extravasation. Density is seen layering within the lumen of the gallbladder suggestive of sludge or gallstones. Postoperative appearance of lower thoracic and lumbar spine is seen. Since 02/28/2018, hardware has been placed at L2 replacing the fractured vertebral body. In the perivertebral soft tissues, soft tissue thickening and dystrophic calcifications are seen, compatible with scarring and changes of surgery. In the left retroperitoneum, a 5.7 x 3.6 x 6.5 cm fluid collection is seen without distinct feng. This is thought to reflect postoperative seroma given the recent surgery. Edema and fluid are also seen in the soft tissues posterior to the lumbar spine without a distinct fluid collection. Follow-up to resolution is advised. [facility]-[id number] Performing Organization Address [facility] [place] [address] * POC glucose (03/30/2018 10:17 AM TESTER ELECTRONIC SCALE) Only the most recent of 33 results within the time period is included. [facility] POC glucose 118 (H) 65 - 99 mg/dL ODESSA Comment: [facility] Notified RN HOSPITAL Meter ID: [id number] Slitter Cut Off Operator: Valeriano Aviles Specimen Performing Organization Address [facility] Cent[facility]ode Phone Number [facility] [place] [address] PATHOLOGY AND GENOMIC MEDICINE ODESSA AMISH [address] [place] [address] HOSPITAL * Troponin (03/30/2018 4:00 AM TESTER ELECTRONIC SCALE) Only the most recent of 7 results within the time period is included. [facility] Troponin <0.30 0.00 - 0.30 ng/mL O[place]SA Comment: [facility] 0.30 - 1.49 HOSPITAL ng/mlMay indicate increased risk of acute coronary syndrome. >=1.5 ng/ml Consistent with acute myocardial infarction. The diagnostic value of a single normal or non-diagnostic result is questionable.Serial samples at 2-6 hour intervals are required to rule out acute myocardial injury. Specimen Plasma specimen Performing Organization Address [facility]/Zipcode Phone Number [facility] DEPARTMENT OF [address] [place] [address] PATHOLOGY AND GENOMIC MEDICINE [address] * LDH (03/30/2018 4:00 AM TESTER ELECTRONIC SCALE) Only the most recent of 2 results within the time period is included. LDH 488 (H) 87 - 225 U/L [facility] Specimen Plasma specimen Performing Organization Address City/[facility] Phone Number [facility] [place] [address] PATHOLOGY AND GENOMIC MEDICINE [address] * Lactic acid level (03/30/2018 4:00 AM TESTER ELECTRONIC SCALE) Only the most recent of 8 results within the time period is included. Lactic acid 1.9 0.5 - 2.2 mmol/L [facility] Specimen Plasma specimen Performing Organization Address [facility] Phone Number [facility] [place] [address] PATHOLOGY AND [facility] MEDICINE [address] * Hepatic function panel (03/30/2018 4:00 AM TESTER ELECTRONIC SCALE) Albumin 2.3 (L) 3.5 - 5.0 g/dL [facility] Total bilirubin 1.1 0.0 - 1.2 mg/dL [facility] Bilirubin <0.2 0.0 - 0.3 mg/dL [facility] Alkaline 139 (H) 40 - 129 U/L [facility] Protein 5.5 (L) 6.3 - 8.3 g/dL ODESSA Comment: [facility] 4.6-7.0 g/dL 1 week 4.4-7.6 g/dL 7 months-1year 5.1-7.3 g/dL 1-2 years5.6-7 .5 g/dL >3 years6.0-8 .0 g/dL 18-150 6.3-8.3 g/dL ALT 39 5 - 50 U/L [facility] AST 60 (H) 10 - 50 U/L [facility] Specimen Plasma specimen Performing Organization Address [facility] Phone Number [facility] [place] [address] PATHOLOGY AND GENOMIC MEDICINE [address] [address] HOSPITAL * Lactic acid level, SEPSIS - Now and repeat 2x every 3 hours (03/29/2018 9:28 PM TESTER ELECTRONIC SCALE) Only the most recent of 4 results within the time period is included. Lactic acid 1.4 0.5 - 2.2 mmol/L [facility] Specimen Blood Performing Organization Address City/State/Zipcode Phone Number [facility] DEPARTMENT OF [address] [place] [address] PATHOLOGY AND GENOMIC MEDICINE [address] * CT Angiogram Pe Chest (03/29/2018 8:11 PM TESTER ELECTRONIC SCALE) Specimen Addenda Addendum by James Urena MD on 03/29/2018 8:40 PM ADDENDUM #1 There is partial absence of the left posterior 11th rib adjacent to the partially visualized left retroperitoneal fluid collection. It is indeterminate if this finding is related to postsurgical change or other aggressive process (infection/inflammation or neoplasm). Recommend clinical correlation. Narrative Performed At CT [facility] CLINICAL INDICATION: PE suspectedhigh pretest prob COMPARISON:CT 03/05/2018. Chest radiograph 03/04/2018. TECHNIQUE:CT angiographic images of the chest were obtained during intravenous administration of iodinated contrast.Computerized, reformatted images and 3-D MIP images were obtained and archived (per CT pulmonary embolism protocol). CT scans are performed using radiation dose reduction techniques (iterative reconstruction and/or automated exposure control). Technical factors are evaluated and adjusted to ensure appropriate moderation of exposure. Automated dose management technology is applied to adjust radiation exposure while achieving a diagnostic quality image. FINDINGS: Pulmonary arteries: Diagnostic quality of study is suboptimal for the evaluation of pulmonary embolism due to poor contrast opacification of the pulmonary arteries. There is no evidence of acute or chronic pulmonary embolism in proximal pulmonary arteries.No evidence of right heart strain. The main pulmonary artery measures 26 mm in luminal diameter. Aorta:Ascending aorta is dilated up to 4.4 cm. Mild calcific atherosclerosis. No dissection. Lungs and large airways:Left compressive atelectasis, with collapse of majority of the left lower lobe. Right dependent subsegmental atelectasis/scarring. Previously seen right lower lobe irregular opacity appears resolved on the current examination and was likely infectious/inflammatory. Pleura: Large left pleural effusion, increased compared to prior CT. Right pleural effusion has resolved. Heart and pericardium:Heart size is normal. No pericardial effusion. Mediastinum and agnes: Rightward mediastinal shift. Lymph nodes:No pathological adenopathy in the agnes, axilla or mediastinum. Chest wall:Unremarkable. Bones:Diffuse osteopenia. Posterior spinal fusion hardware at T9 and inferior spinal levels. Upper abdomen: Partially visualized posterior and left paraspinal soft tissue and left retroperitoneal fluid at T9 and inferior levels. IMPRESSION: 1. Negative CTA examination for pulmonary embolism. Suboptimal evaluation as above. 2. Large left pleural effusion, increased compared to prior CT of 03/05/2018. Right pleural effusion has resolved. 3. Previously seen right lower lobe irregular opacity appears resolved on the current examination and was likely infectious/inflammatory. 4. Partially visualized posterior and left paraspinal soft tissue and left retroperitoneal fluid at T9 and inferior levels. [facility]-[id number] Procedure Note [facility], Radiology Results Incoming - 03/29/2018 8:32 [address] ELECTRONIC SCALE CT ANGIOGRAM PE CHEST CLINICAL INDICATION: PE suspected high pretest prob COMPARISON: CT 03/05/2018. Chest radiograph 03/04/2018. TECHNIQUE: CT angiographic images of the chest were obtained during intravenous administration of iodinated contrast. Computerized, reformatted images and 3-D MIP images were obtained and archived (per CT pulmonary embolism protocol). CT scans are performed using radiation dose reduction techniques (iterative reconstruction and/or automated exposure control). Technical factors are evaluated and adjusted to ensure appropriate moderation of exposure. Automated dose management technology is applied to adjust radiation exposure while achieving a diagnostic quality image. FINDINGS: Pulmonary arteries: Diagnostic quality of study is suboptimal for the evaluation of pulmonary embolism due to poor contrast opacification of the pulmonary arteries. There is no evidence of acute or chronic pulmonary embolism in proximal pulmonary arteries. No evidence of right heart strain. The main pulmonary artery measures 26 mm in luminal diameter. Aorta: Ascending aorta is dilated up to 4.4 cm. Mild calcific atherosclerosis. No dissection. Lungs and large airways: Left compressive atelectasis, with collapse of majority of the left lower lobe. Right dependent subsegmental atelectasis/scarring. Previously seen right lower lobe irregular opacity appears resolved on the current examination and was likely infectious/inflammatory. Pleura: Large left pleural effusion, increased compared to prior CT. Right pleural effusion has resolved. Heart and pericardium: Heart size is normal. No pericardial effusion. Mediastinum and agnes: Rightward mediastinal shift. Lymph nodes: No pathological adenopathy in the agnes, axilla or mediastinum. Chest wall: Unremarkable. Bones: Diffuse osteopenia. Posterior spinal fusion hardware at T9 and inferior spinal levels. Upper abdomen: Partially visualized posterior and left paraspinal soft tissue and left retroperitoneal fluid at T9 and inferior levels. IMPRESSION: 1. Negative CTA examination for pulmonary embolism. Suboptimal evaluation as above. 2. Large left pleural effusion, increased compared to prior CT of 03/05/2018. Right pleural effusion has resolved. 3. Previously seen right lower lobe irregular opacity appears resolved on the current examination and was likely infectious/inflammatory. 4. Partially visualized posterior and left paraspinal soft tissue and left retroperitoneal fluid at T9 and inferior levels. [facility]-[id number] Performing Organization Address [facility] [place] [address] * Partial thromboplastin time, activated (03/29/2018 5:06 PM TESTER ELECTRONIC SCALE) Only the most recent of 8 results within the time period is included. Pathologist [facility] PTT 29.3 23.0 - 36.0 sec ODESSA Comment: AMISH PTT therapeutic range for HOSPITAL unfractionated heparin is 61.0-112.0 seconds which corresponds to Anti-Xa 0.3-0.7 U/ml. Specimen Blood Performing Organization Address [facility] Phone Number [facility] [place] [address] PATHOLOGY AND GENOMIC MEDICINE [address] * Prothrombin time with INR (03/29/2018 5:06 PM TESTER ELECTRONIC SCALE) Only the most recent of 10 results within the time period is included. Pathologist [facility] Prothrombin 13.3 11.5 - 14.5 sec [facility] INR 1.0 ODESSA Comment: AMISH The International Normalized HOSPITAL Ratio (INR) is a therapeutic monitoring tool for patients who are stable on oral anticoagulant therapy. An INR of 2.0-3.0 is suggested for deep vein thrombosis/pulmonary embolism. Specimen Blood Performing Organization Address [facility] Phone Number [facility] DEPARTMENT OF [address] [place] [address] PATHOLOGY AND GENOMIC MEDICINE [address] * B natriuretic peptide (03/29/2018 5:06 PM TESTER ELECTRONIC SCALE) Only the most recent of 3 results within the time period is included. Pathologist [facility] BNP 17 0 - 100 pg/mL [facility] Specimen Blood Performing Organization Address City/[facility] Phone Number [facility] [place] [address] PATHOLOGY AND GENOMIC MEDICINE [address] * Creatine kinase, total (CPK) (03/29/2018 5:06 PM TESTER ELECTRONIC SCALE) Only the most recent of 2 results within the time period is included. Pathologist [facility] Creatine kinase 36 (L) 39 - 308 U/L [facility] Specimen Blood Performing Organization Address [facility] Phone Number [facility] [place] [address] PATHOLOGY AND GENOMIC MEDICINE [address] * Comprehensive metabolic panel (03/29/2018 5:06 PM TESTER ELECTRONIC SCALE) Only the most recent of 6 results within the time period is included. Pathologist [facility] Sodium 144 135 - 148 mEq/L [facility] Potassium 4.6 3.5 - 5.0 mEq/L [facility] Chloride 103 98 - 112 mEq/L [facility] CO2 27 24 - 31 mEq/L [facility] Anion gap 14@ANIO 7 - 15 mEq/L [facility] BUN 13 8 - 23 mg/dL [facility] Creatinine 0.86 0.70 - 1.20 mg/dL [facility] Glucose 93 65 - 99 mg/dL [facility] Calcium 9.6 8.8 - 10.2 mg/dL [facility] Protein 6.4 6.3 - 8.3 g/dL [place] Comment: [facility] 4.6-7.0 g/dL 1 week 4.4-7.6 g/dL 7 months-1year 5.1-7.3 g/dL 1-2 years5.6-7 .5 g/dL >3 years6.0-8 .0 g/dL 18-150 6.3-8.3 g/dL Albumin 2.9 (L) 3.5 - 5.0 g/dL [facility] A/G ratio 0.8 0.7 - 3.8 [facility] Alkaline 179 (H) 40 - 129 U/L [place] phosphatase [facility] AST 33 10 - 50 U/L [facility] ALT 44 5 - 50 U/L [facility] Total bilirubin 1.3 (H) 0.0 - 1.2 mg/dL [facility] Specimen Plasma specimen Performing Organization Address City/[facility] Phone Number [facility] DEPARTMENT OF [address] [place] [address] PATHOLOGY AND GENOMIC MEDICINE [address] * ECG ED Preliminary Interpretation - Not an Order (03/29/2018 3:31 PM TESTER ELECTRONIC SCALE) Narrative Performed At Kellie Yates MD 03/29/2018 10:00 PM ECG ED Preliminary Interpretation - Not an Order Performed by: Kellie Yates MD Authorized by: Kellie Yates MD ECG reviewed by ED Physician in the absence of a cardiovascular operating room nurse: yes Interpretation: Interpretation: abnormal Rate: ECG rate:102 ECG rate assessment: tachycardic Rhythm: Rhythm: sinus tachycardia Ectopy: Ectopy: none QRS: QRS axis:Normal QRS intervals:Normal Conduction: Conduction: normal ST segments: ST segments:Normal T waves: T waves: non-specific * ECG 12 lead (03/29/2018 3:17 PM TESTER ELECTRONIC SCALE) Only the most recent of 2 results within the time period is included. Ventricular 103 [facility] rate Atrial rate 103 [facility] UT interval 146 [facility] QRSD interval 82 [facility] QT interval 362 [facility] QTC interval 474 [facility] P axis 1 54 [facility] QRS axis 1 16 [facility] T wave axis 22 [facility] MUSE EKG impression Sinus tachycardia-Nonspecific [facility] MUSE T wave abnormality-Abnormal ECG-In automated comparison with ECG of 16-DEC-2017 13:45,-Criteria for Septal infarct are no longer present- Specimen Narrative Performed At Performing Organization Address [facility] Cent[facility]ode Phone Number [facility] [address] [place] [id number] * Us duplex venous lower extremity (03/07/2018 11:36 AM TESTER ELECTRONIC SCALE) Only the most recent of 3 results within the time period is included. Specimen Narrative Performed At [facility] Vascular Ultrasound Laboratory Lower Extremity Venous Report [id number] [facility] [address] [id number] Pat.Name:SHERYL EWING.ID:[id number] .Date: 03/07/2018 Refer.MD:ONEL ROY MD Exam Time: 10:55:00 AM Study Type:LE Venous Height:72inDOBAge:1950,67Y Sex: MALESonogrphr: Gilma Argueta RVT Pat. Stat.:[facility] T[facility]: [place], CPT - 4: 12150 Echo Event ID:[id number] Order ID:[id number] Reason for Study:Suspect DVT per ordering physician. Status post back surgery on 02/25/2018. Procedures:Colorflow, Grayscale/2D, Pulsed wave Doppler Race:B SUMMARY: * Normal Reflux Criteria:< 0.5 seconds DUPLEX SCAN OBSERVATIONS Deep VeinsSuperficial Veins RightLeft RightLeft EIV GSV (prox) NormalNormal CFV Normal Normal (above knee) Femoral Normal Normal GSV (dist) Normal Normal Profunda Normal Normal (below knee) Popliteal Normal Normal PT (prox) Normal NormalSSV Normal Normal PT (dist) Normal Normal Peroneal Normal Normal RIGHT:There is normal compressibility with no evidence of echogenic material noted within the lumen of the visualized veins. Colorflow and Doppler signals are normal. LEFT: There is normal compressibility with no evidence of echogenic material noted within the lumen of the visualized veins. Colorflow and Doppler signals are normal. PRELIMINARY FINDINGS 1. No evidence of venous thrombosis of the visualized veins. PHYSICIAN INTERPRETATION Venous examination of the both lower extremities demonstrated no evidence of venous thrombosis in the visualized veins.Normal compressibility and augmentation of all veins visualized. Signed 03/07/2018 10:58 PM Demarcus Agudelo MD, SHIRA Procedure Note Interface, Radiology Results In - 03/07/2018 10:58 PM [facility] Vascular Ultrasound Laboratory Lower Extremity Venous Report [id number] [address] Pat.Name: SHERYL EWING Pat.ID: [id number] St.Date: 03/07/2018 Refer.MD: ONEL ROY MD Exam Time: 10:55:00 AM Study Type:LE Venous Height: 72in Age: 10 1950,67Y Sex: MALE Sonogrphr: Gilma Argueta RVT Pat. Stat.:Inpatient Room: D727A Tape Vol: TN, CPT - 4: 30960 Echo Event ID:[id number] Order ID: [id number] Reason for Study:Suspect DVT per ordering physician. Status post back surgery on 02/25/2018. Procedures:Colorflow, Grayscale/2D, Pulsed wave Doppler Race: B SUMMARY: * Normal Reflux Criteria: < 0.5 seconds DUPLEX SCAN OBSERVATIONS Deep Veins Superficial Veins Right Left Right Left EIV GSV (prox) Normal Normal CFV Normal Normal (above knee) Femoral Normal Normal GSV (dist) Normal Normal Profunda Normal Normal (below knee) Popliteal Normal Normal PT (prox) Normal Normal SSV Normal Normal PT (dist) Normal Normal Peroneal Normal Normal RIGHT: There is normal compressibility with no evidence of echogenic material noted within the lumen of the visualized veins. Colorflow and Doppler signals are normal. LEFT: There is normal compressibility with no evidence of echogenic material noted within the lumen of the visualized veins. Colorflow and Doppler signals are normal. PRELIMINARY FINDINGS 1. No evidence of venous thrombosis of the visualized veins. PHYSICIAN INTERPRETATION Venous examination of the both lower extremities demonstrated no evidence of venous thrombosis in the visualized veins. Normal compressibility and augmentation of all veins visualized. Signed 03/07/2018 10:58 PM Demarcus Agudelo MD, RPVI Performing Organization Address City/[facility] Cent[facility]ode Phone Number [facility] [address] [place] [address] * Thyroid stimulating hormone (03/07/2018 4:00 AM TESTER ELECTRONIC SCALE) Only the most recent of 2 results within the time period is included. TSH 1.69 0.27 - 4.20 uIU/mL [facility] Specimen Plasma specimen Performing Organization Address [facility] Centercode Phone Number [facility] DEPARTMENT OF [address] [place] [address] PATHOLOGY AND GENOMIC MEDICINE [address] * Echocardiogram complete w contrast and 3D if needed (03/05/2018 10:16 AM TESTER ELECTRONIC SCALE) Specimen Narrative Performed At [facility] Echocardiography Report [address] [place] [address] Pat.Name:SHERYL EWING.ID:[id number] .Date: 03/05/2018 Refer.MD:AISHWARYA ROY. Exam Time: 9:43:00 AMStudy Type:Routine Echo Height:70inWeight:206lb BSA: 2.12 m2 DOBAge:1950,67Y Sex: MALEBP:145/77 HR:89 bpmSonogrphr: NIDA Patiño Pat. Stat.:Inpatient Room:L0022W Study Status:Final Echo Event ID:[id number] Order ID:[id number] Reason for Study:Ventricular Function - Routine surveillance of ventricular function with known CAD an no change in clinical status or cardiac exam History / Clinical:Hyperlipidemia, Hypertension Procedures:2D Echo, Colorflow Doppler, Intravenous Definity Contrast SUMMARY: Normal biventricular systolic function. No hemodynamically-significant valvular lesions. FINDINGS: LV: LV size is normal. LV EF is normal. Overall wall motion is normal.Estimated EF is 60-64%. RV: RV size is normal. RV systolic function is normal. LA: LA volume is difficult to assess. RA: RA volume is difficult to assess. AO: Aortic root diameter is mildly enlarged. FRANCISCO JAVIER: No pericardial effusion. AV: No structural AV abnormalities noted. MV: No structural MV abnormalities noted. PV: Pulmonic valve not well seen. TV: No structural TV abnormalities noted. Araiza: LV filling pressure is normal. Other:Insufficient TR jet to estimate PA systolic pressure. MEASUREMENTS: 2D Parasternal [place] LA Ds3 cmLVPWd0.9 cm LVIDd4.4 cmIndex2.1 cm/m Ao Rtd 3.9 cm Index1.8 cm/m LVIDs2.8 cm LV Unbp435.9 g(122-174) LV%fs 36.7 % LVM Index 67.9 g/m2 IVSd 1.1 cmRWT0.4 DOPPLER LVOT Stroke Vol LVOT 2.3 cmLVOT CO6 l/min LVOT TVI16.4 cmLVOT CI2.8 l/m/m2 LVOT Tm254 qkavLE83 bpm LVOT SV 68.2 ml Signed 03/05/2018 03:38 PM Félix Hoyt M.D. Procedure Note Interface, Radiology Results In - 03/05/2018 3:38 PM [facility] Echocardiography Report [id number] [facility], [place] [address], [address]Name: SHERYL EWING Siobhan.ID: [id number] .Date: 03/05/2018 Refer.MD: ONEL ROY MD. Exam Time: 9:43:00 AM Study Type:Routine Echo Height: 70in Weight: 206lb BSA: 2.12 m2 Age: 10 1950,67Y Sex: MALE BP: 145/77 HR: 89 bpm Sonogrphr: NIDA Patiño Pat. Stat.:Inpatient Room: W8700G Study Status:Final Echo Event ID:[id number] Order ID: [id number] Reason for Study:Ventricular Function - Routine surveillance of ventricular function with known CAD an no change in clinical status or cardiac exam History / Clinical:Hyperlipidemia, Hypertension Procedures:2D Echo, Colorflow Doppler, Intravenous Definity Contrast SUMMARY: Normal biventricular systolic function. No hemodynamically-significant valvular lesions. FINDINGS: LV: LV size is normal. LV EF is normal. Overall wall motion is normal. Estimated EF is 60-64%. RV: RV size is normal. RV systolic function is normal. LA: LA volume is difficult to assess. RA: RA volume is difficult to assess. AO: Aortic root diameter is mildly enlarged. FRANCISCO JAVIER: No pericardial effusion. AV: No structural AV abnormalities noted. MV: No structural MV abnormalities noted. PV: Pulmonic valve not well seen. TV: No structural TV abnormalities noted. Araiza: LV filling pressure is normal. Other: Insufficient TR jet to estimate PA systolic pressure. MEASUREMENTS: 2D Parasternal [place] LA Ds 3 cm LVPWd 0.9 cm LVIDd 4.4 cm Index 2.1 cm/m Ao Rtd 3.9 cm Index 1.8 cm/m LVIDs 2.8 cm LV Mass 143.9 g (122-174) LV%fs 36.7 % LVM Index 67.9 g/m2 IVSd 1.1 cm RWT 0.4 DOPPLER LVOT Stroke Vol LVOT 2.3 cm LVOT CO 6 l/min LVOT TVI 16.4 cm LVOT CI 2.8 l/m/m2 LVOT Tm 254 msec HR 88 bpm LVOT SV 68.2 ml Signed 03/05/2018 03:38 PM Félix Hoyt M.D. Performing Organization Address City/State/Zipcode Phone Number [facility] [address] [place] [address] * CT Chest Wo Contrast (03/05/2018 9:35 AM TESTER ELECTRONIC SCALE) Specimen Narrative Performed At EXAMINATION: CT CHEST WO CONTRAST RADIANT CLINICAL HISTORY: Interstitial lung disease TECHNIQUE:Axial images of the chest were obtained without intravenous contrast. The lack of intravenous contrast reduces the sensitivity of the exam and evaluating vasculature. CT imaging was performed with iterative reconstruction technique and/or automated exposure control to reduce radiation dose. COMPARISON:Limited comparison with chest radiograph 03/04/2018 FINDINGS: Lungs and airways: There is fairly extensive volume loss in the lateral aspect of the left upper lobe. Additional scattered foci of linear atelectasis as well as passive atelectasis in the dependent lungs secondary to adjacent pleural effusions. Irregular 17 mm nodular opacity is present in the right lower lobe and persists on prone imaging. Small amount of groundglass in the left lung base. No appreciable interlobular septal thickening to suggest pulmonary edema. No fibrotic changes are identified in a pattern that would suggest interstitial lung disease. Pleura: Moderate left and small right layering pleural effusions demonstrating simple fluid attenuation. Mediastinum and lymph nodes: No lymphadenopathy. Cardiovascular: The aorta is dilated, measuring 44 mm. There are heavy coronary calcifications. Upper abdomen: There is a partially visualized somewhat heterogenous collection inferior to the spleen best seen on the most inferior axial image (image 122 of series 2) which is new compared to lumbar spine CT 02/28/2018. Bones: Extensive evolving postsurgical changes along the lower thoracic and upper lumbar spine, only partially visualized. Mild spondylosis. IMPRESSION: 1.No CT evidence of interstitial lung disease. 2.Moderate left and small right layering pleural effusions. 3.Fairly extensive volume loss in the lateral aspect of the left upper lobe of indeterminate etiology. No discrete central obstructing lesion is identified. 4.Irregular 17 mm opacity in the right lower lobe persists on prone imaging, arguing against atelectasis. Leading considerations are focal scarring, small focus of infection/inflammation, and neoplasm. Recommend 3 month follow-up chest CT for further evaluation. 5.Dilated aorta (44 mm). Heavy coronary calcifications. 6.New (compared to lumbar spine CT 02/28/2018) somewhat heterogenous collection inferior to the spleen, incompletely visualized, possibly a retroperitoneal hematoma. Recommend correlation with laboratory values and contrast-enhanced abdominal CT if indicated. [facility]-[id number] Procedure Note Interface, Radiology Results Incoming - 03/05/2018 9:52 AM TESTER ELECTRONIC SCALE EXAMINATION: CT CHEST WO CONTRAST CLINICAL HISTORY: Interstitial lung disease TECHNIQUE: Axial images of the chest were obtained without intravenous contrast. The lack of intravenous contrast reduces the sensitivity of the exam and evaluating vasculature. CT imaging was performed with iterative reconstruction technique and/or automated exposure control to reduce radiation dose. COMPARISON: Limited comparison with chest radiograph 03/04/2018 FINDINGS: Lungs and airways: There is fairly extensive volume loss in the lateral aspect of the left upper lobe. Additional scattered foci of linear atelectasis as well as passive atelectasis in the dependent lungs secondary to adjacent pleural effusions. Irregular 17 mm nodular opacity is present in the right lower lobe and persists on prone imaging. Small amount of groundglass in the left lung base. No appreciable interlobular septal thickening to suggest pulmonary edema. No fibrotic changes are identified in a pattern that would suggest interstitial lung disease. Pleura: Moderate left and small right layering pleural effusions demonstrating simple fluid attenuation. Mediastinum and lymph nodes: No lymphadenopathy. Cardiovascular: The aorta is dilated, measuring 44 mm. There are heavy coronary calcifications. Upper abdomen: There is a partially visualized somewhat heterogenous collection inferior to the spleen best seen on the most inferior axial image (image 122 of series 2) which is new compared to lumbar spine CT 02/28/2018. Bones: Extensive evolving postsurgical changes along the lower thoracic and upper lumbar spine, only partially visualized. Mild spondylosis. IMPRESSION: 1. No CT evidence of interstitial lung disease. 2. Moderate left and small right layering pleural effusions. 3. Fairly extensive volume loss in the lateral aspect of the left upper lobe of indeterminate etiology. No discrete central obstructing lesion is identified. 4. Irregular 17 mm opacity in the right lower lobe persists on prone imaging, arguing against atelectasis. Leading considerations are focal scarring, small focus of infection/inflammation, and neoplasm. Recommend 3 month follow-up chest CT for further evaluation. 5. Dilated aorta (44 mm). Heavy coronary calcifications. 6. New (compared to lumbar spine CT 02/28/2018) somewhat heterogenous collection inferior to the spleen, incompletely visualized, possibly a retroperitoneal hematoma. Recommend correlation with laboratory values and contrast-enhanced abdominal CT if indicated. [facility]-[id number] Performing Organization Address City/State/[place] [address] * Arterial blood gas (03/04/2018 11:39 AM TESTER ELECTRONIC SCALE) Only the most recent of 7 results within the time period is included. pH, arterial 7.50 (H) 7.35 - 7.45 [facility] pCO2, arterial 37 35 - 45 mmHg [facility] pO2, arterial 82 80 - 90 mmHg [facility] Bicarbonate, 28.6 (H) 21.0 - 28.0 mmol/L [facility] excess, 6 (H) -2 - 2 mEq/L [facility] O2 saturation, 97 95 - 100 % [facility] Specimen Blood Performing Organization Address [facility] Centercoms Phone Number [facility] [place] [address] PATHOLOGY AND GENOMIC MEDICINE [address] * Ionized calcium, arterial (03/04/2018 12:30 AM TESTER ELECTRONIC SCALE) Only the most recent of 8 results within the time period is included. Pathologist [facility] Ionized 0.94 (L) 1.11 - 1.32 mmol/L [facility] arterial [facility] Specimen Blood Performing Organization Address City/[facility]/Zipcode Phone Number [facility] [place] [place] [address] PATHOLOGY AND [facility] MEDICINE [address] * Fibrinogen (03/04/2018 12:30 AM TESTER ELECTRONIC SCALE) Only the most recent of 3 results within the time period is included. Fibrinogen 464 (H) 200 - 450 mg/dL [facility] Specimen Blood Performing Organization Address City/State/Zipcode Phone Number [facility] DEPARTMENT OF [address] [place] [address] PATHOLOGY AND GENOMIC MEDICINE [address] * Transfuse fresh frozen plasma (03/01/2018 5:21 PM TESTER ELECTRONIC SCALE) Only the most recent of 3 results within the time period is included. * Transfuse platelets (03/01/2018 3:58 PM TESTER ELECTRONIC SCALE) Only the most recent of 2 results within the time period is included. * Surgical pathology request (03/01/2018 3:10 PM TESTER ELECTRONIC SCALE) Only the most recent of 3 results within the time period is included. [facility] DEPARTMENT OF PATHOLOGY AND GENOMIC MEDICINE Surgical See link below for PDF Lab [facility] DEPARTMENT pathology Report OF PATHOLOGY report AND GENOMIC MEDICINE Result status This is Final Report for [facility] DEPARTMENT [id number] OF PATHOLOGY AND GENOMIC MEDICINE Specimen Performing Organization Address City/[facility]/Zipcode Phone Number [facility] DEPARTMENT OF [address] [place] [address] PATHOLOGY AND GENOMIC MEDICINE * Intraoperative monitoring (03/01/2018 1:25 PM TESTER ELECTRONIC SCALE) Narrative Performed At INTRAOPERATIVE NEURO MONITORING Patient Name: Sheryl Ewing Date of : 1950 Gender: male Surgical Procedure:L1-L3 ALIF/L2 corpectomy OR: (PETER) Room #: (19) Tech #1: (JS/AMc) Start Time: (0945) End Time: (1300) Total Time (in hours): (3) Date of Service: 03/01/18 Physician IOM Time: 3 Hours Procedure(s) performed During IOM: 95975, 82877, 56107 ICD10: M47.16 Stimulation Parameters Ulnar nerves individually stimulated at the wrist. Rate 4.7 Hz, Intensity 20-60 mA, Duration 0.3 ms, Filters 30-500 Hz, Notch Off Posterior Tibial nerves individually stimulated at the ankle., Rate 4.7 Hz, Intensity 30 - 80 mA, Duration 0.3 ms, Filters 30-500 Hz, Notch Off Motor strip stimulated anterior to C3 and C4 with alternating polarities, Intensity 500 V Train Rate 4-5 ASUNCION 2-3 ms, Filter 30-2KHz Notch off Technical Summary Intraoperative neurophysiological monitoring was performed using a combination of upper and lower extremity somatosensory evoked potentials (SEP), transcranial electrical motor potentials (TcMEP) and running electromyography (EMG) of the innervated muscle groups. A real time connection was established by the monitoring technologist with the examining neurologist throughout the operative procedure. Lower extremity somatosensory evoked potentials were recorded peripherally at the popliteal fossa and centrally at the cervical and cortical levels following posterior tibial nerve stimulation at the ankle. Upper extremity somatosensory evoked potentials were recorded centrally at the cervical and cortical levels following ulnar nerve stimulation at the wrist. There were no significant surgically related changes in amplitude or latency to the cervical and/or cortical SEP responses throughout the surgical procedure. TcMEPs were recorded peripherally from the upper and lower extremities following alternating polarity motor strip stimulation. Post-induction TcMEP responses to motor cortex stimulation were clear and reproducible bilaterally. No significant surgically related changes in amplitude or latency of the TcMEPs were noted throughout the surgical procedure. At closing responses were judged to be essentially unchanged from those of post positioning baselines. Free running EMG of the innervated muscle groups was monitored continuously throughout the operative procedure with no sustained neurotonic discharges noted. Conclusion These results suggest the absence of a significant delay or reduction in amplitude of cervical and cortical SEP responses suggest the absence of untoward, secondary changes to posterior spinal cord function as a result of this surgical procedure. The absence of sustained neurotonic discharges on free-running EMG suggests that the monitored nerve roots remained undisturbed during this procedure. All values were reported to the surgeon in real time. . * Transfuse RBC (03/01/2018 1:17 PM TESTER ELECTRONIC SCALE) Only the most recent of 8 results within the time period is included. * OR FL > I Hour (03/01/2018 1:06 PM TESTER ELECTRONIC SCALE) Only the most recent of 3 results within the time period is included. Specimen Narrative Performed At EXAMINATION:OR FL 1 HOUR HM RADIANT C-arm fluoroscopy was requested in OR. LOCATION:[facility] #19 PROCEDURE: Anterior Corpectomy L2 Fusion START: 45 END: 1300 FLUORO TIME: 20sec DOSE: 28.47 TECH(S): MA/SELENA IMPRESSION: Separate operative report will be issued by the physician performing the procedure. [id number] Procedure Note Hm Interface, Radiology Results Incoming - 03/02/2018 6:48 PM TESTER ELECTRONIC SCALE EXAMINATION: OR FL 1 HOUR C-arm fluoroscopy was requested in OR. LOCATION:[facility]19 PROCEDURE: Anterior Corpectomy L2 Fusion START: 944 END: 1300 FLUORO TIME: 20sec DOSE: 28.47 TECH(S): STONE/SELENA IMPRESSION: Separate operative report will be issued by the physician performing the procedure. [id number] Performing Organization Address [facility]/[place] [address] * Sodium level, syringe (03/01/2018 12:11 PM TESTER ELECTRONIC SCALE) Only the most recent of 5 results within the time period is included. Sodium, syringe 137 135 - 148 mEq/L [facility] Specimen Blood Performing Organization Address [facility]coms Phone Number [facility] [place] [place] [address] PATHOLOGY AND [facility] MEDICINE [address] * Potassium, syringe (03/01/2018 12:11 PM TESTER ELECTRONIC SCALE) Only the most recent of 5 results within the time period is included. Potassium, 3.8 3.5 - 5.0 mEq/L [facility] Specimen Blood Performing Organization Address [facility] Phone Number [facility] [place] [address] PATHOLOGY AND [facility] MEDICINE [address] * Lactic acid, syringe (03/01/2018 12:11 PM TESTER ELECTRONIC SCALE) Only the most recent of 5 results within the time period is included. Lactic acid, 1.5 0.5 - 2.2 mmol/L [facility] Specimen Blood Performing Organization Address [facility] Phone Number [facility] [place] [address] PATHOLOGY AND GENOMIC MEDICINE [address] * Hemoglobin, syringe (03/01/2018 12:11 PM TESTER ELECTRONIC SCALE) Only the most recent of 5 results within the time period is included. Hemoglobin, 10.0 (L) 14.0 - 18.0 g/dL [facility] Specimen Blood Performing Organization Address [facility] Centercode Phone Number [facility] [place] [address] PATHOLOGY [place] [address] HOSPITAL * Glucose level, syringe (03/01/2018 12:11 PM TESTER ELECTRONIC SCALE) Only the most recent of 5 results within the time period is included. Pathologist [facility] Glucose, 125 (H) 65 - 99 mg/dL [place] syringe [facility] Specimen Blood Performing Organization Address City/State/Zipcode Phone Number [facility] [place] [place] [address] PATHOLOGY AND [facility] MEDICINE [address] * Arterial blood gas, corrected (03/01/2018 12:11 PM TESTER ELECTRONIC SCALE) Only the most recent of 4 results within the time period is included. Pathologist [facility] pH, arterial 7.39 7.35 - 7.45 [facility] pCO2, arterial 43 35 - 45 mmHg [facility] pO2, arterial 113 (H) 80 - 90 mmHg [facility] Temperature, 35.8 Degrees C [place] Celsius [facility] O2 saturation, 99 95 - 100 % [place] arterial [facility] pH, arterial 7.41 [place] corrected [facility] pCO2, arterial 41 mmHg [facility] pO2, arterial 106 mmHg [facility] Base excess, 1 -2 - 2 mEq/L [facility] Specimen Blood Performing Organization Address City/[facility] Centercode Phone Number [facility] [place] [place] [address] PATHOLOGY AND [facility] MEDICINE [address] * Prepare platelet pheresis, 1 Units (03/01/2018 12:20 AM TESTER ELECTRONIC SCALE) Only the most recent of 2 results within the time period is included. Product name Apheresis Platelet ACDA LRIRR [facility] Unit number [id number] [facility] Product code [id number] [facility] Dispense status Transfused [facility] Blood [id number] [facility] expiration date [facility] Blood type code 5100 [facility] Blood type O POSITIVE [facility] Specimen Performing Organization Address City/State/Zipcode Phone Number [facility] [place] [address] PATHOLOGY AND [facility] MEDICINE [address] * Prepare fresh frozen plasma, 2 Units (03/01/2018 12:20 AM TESTER ELECTRONIC SCALE) Only the most recent of 3 results within the time period is included. Product name Thawed Plasma [facility] Unit number [id number] [facility] Product code [id number] [facility] Dispense status Transfused [facility] Blood [id number] [place] expiration date [facility] Blood type code 5100 [facility] Blood type O POSITIVE [facility] Product name Thawed Plasma [facility] Unit number [id number] [facility] Product code [id number] [facility] Dispense status Transfused [facility] Blood [id number] [place] expiration date [facility] Blood type code 5100 [facility] Blood type O POSITIVE [facility] Specimen Blood Performing Organization Address City/State/Zipcode Phone Number [facility] DEPARTMENT OF [address] [place] [address] PATHOLOGY [place] [address] HOSPITAL * Prepare RBC (03/01/2018 12:20 AM TESTER ELECTRONIC SCALE) Only the most recent of 7 results within the time period is included. Product name Apheresis Red Cell AS3 #1 LR [facility] Unit number [id number] [facility] Product code [id number] [facility] Dispense status Transfused [facility] Blood [id number] [place] expiration [facility] Blood type code 5100 [facility] Blood type O POSITIVE [facility] Product name Red Blood Cells -1, Leukored [facility] Unit number [id number] [facility] Product code [id number] [facility] Dispense status Transfused [facility] Blood [id number] [place] expiration [facility] Blood type code 5100 [facility] Blood type O POSITIVE [facility] Product name Red Blood Cells -1, Leukored [facility] Unit number [id number] [facility] Product code [id number] [facility] Dispense status Transfused [facility] Blood [id number] [place] expiration date [facility] Blood type code 5100 [facility] Blood type O POSITIVE [facility] Product name Apheresis Red Cell AS3 #2 LR [facility] Unit number [id number] [facility] Product code [id number] [facility] Dispense status Transfused [facility] Blood [id number] [place] expiration date [facility] Blood type code 5100 [facility] Blood type O POSITIVE [facility] Specimen Performing Organization Address City/[facility] Phone Number [facility] DEPARTMENT OF [address] [place] [address] PATHOLOGY AND GENOMIC MEDICINE [address] * Type and screen (03/01/2018 12:20 AM TESTER ELECTRONIC SCALE) Only the most recent of 4 results within the time period is included. ABO grouping O [facility] Rh type POS [facility] Antibody screen NEG [facility] (gel) [facility] Specimen Blood Performing Organization Address [facility] Phone Number [facility] [place] [place] [address] PATHOLOGY AND GENOMIC MEDICINE [address] * CBC hemogram (02/28/2018 4:10 PM TESTER ELECTRONIC SCALE) Only the most recent of 7 results within the time period is included. WBC 11.91 (H) 4.50 - 11.00 k/uL [facility] RBC 3.50 (L) 4.40 - 6.00 m/uL [facility] HGB 10.1 (L) 14.0 - 18.0 g/dL [facility] HCT 30.5 (L) 41.0 - 51.0 % [facility] MCV 87.1 82.0 - 100.0 fL [facility] MCH 28.9 27.0 - 34.0 pg [facility] MCHC 33.1 31.0 - 37.0 g/dL [facility] RDW - SD 44.2 37.0 - 55.0 fL [facility] MPV 9.6 8.8 - 13.2 fL [facility] Platelet count 143 (L) 150 - 400 k/uL [facility] Nucleated RBC 0.00 /100 WBC [facility] Specimen Blood Performing Organization Address City/[facility] Phone Number [facility] [place] [place] [address] PATHOLOGY AND GENOMIC MEDICINE [address] * CT Lumbar Spine Wo Contrast (02/28/2018 2:55 PM TESTER ELECTRONIC SCALE) Only the most recent of 2 results within the time period is included. Specimen Narrative Performed At EXAMINATION: CT LUMBAR SPINE WO CONTRAST [facility] CLINICAL HISTORY: recent surgery COMPARISON:L-spine radiograph 02/25/2018. TECHNIQUE: Axial noncontrast enhanced images of lumbar spine was performed with coronal sagittal reconstruction algorithms. CT imaging was performed with iterative reconstruction technique and/or automated exposure control to reduce radiation dose. FINDINGS: There are 5 non-rib bearing lumbar type vertebrae, the lowest labeled L5 in this report as identified by the lumbosacral angle and iliolumbar ligaments. The redemonstration of postsurgical changes compatible with decompressive laminectomies L3-S1, intervertebral discectomies L1-S1 and posterior spinal instrumentation T9-S1 when compared to the prior radiograph from 02/25/2018. The surgical hardware appears intact, with solid osseous integration. There is similar appearing comminuted craniocaudally oriented fracture through the central L2 vertebral body with anterior inferior displacement of the anterior half of the vertebral body. There is anterior inferior subluxation of the L1-L2 intervertebral disc spacer device, unchanged when compared to the prior radiograph. There is resultant focal lordotic angulation, image 95 of series 801. No other displaced fractures identified. No significant retropulsion of the posterior cortex identified. Evaluation of the visualized soft tissues demonstrates postsurgical edematous changes throughout the lumbar paraspinal musculature. No loculated collections identified. Surgical site drain is noted to the right of midline at the L2 level. No retroperitoneal collections identified. No hydronephrosis. Axial images through the disc spaces demonstrate the following: L1-L2: Moderate central canal stenosis secondary to large posterior facet osteophytes bilaterally, image 151 of series 9. Marked bilateral neural foraminal stenosis is also noted. L2-L3: Severe bilateral neural foraminal stenosis with complete effacement of the neural foramen, images 86 and 106 of series 801, secondary to subluxation of the inferior articular processes secondary to focal lordosis at this level. Central canal is decompressed. L3-L4: Disc is surgically absent. Spinal canal is decompressed. Neural foramina are patent bilaterally. L4-L5: Disc is surgically absent. Spinal canal is decompressed. Neural foramina are patent bilaterally. L5-S1: Disc is surgically absent. Spinal canal is decompressed. Neural foramina are patent bilaterally. Evaluation of other visualized levels demonstrates no significant posterior disc disease, spinal canal, subarticular zone, or neural foraminal stenosis. IMPRESSION: Similar postsurgical changes compatible with intervertebral discectomies L1-S1, decompressive laminectomies L3-S1 and posterior spinal instrumentation T9-S1 when compared with the prior radiograph from 02/25/2018, including severe bilateral neural foraminal stenosis at L2-L3 secondary to effacement from the L3 inferior articular processes related to lordotic angulation of the comminuted L2 vertebral body fracture. [id number] Procedure Note Hm Interface, Radiology Results Incoming - 02/28/2018 3:26 PM TESTER ELECTRONIC SCALE EXAMINATION: CT LUMBAR SPINE WO CONTRAST CLINICAL HISTORY: recent surgery COMPARISON: L-spine radiograph 02/25/2018. TECHNIQUE: Axial noncontrast enhanced images of lumbar spine was performed with coronal sagittal reconstruction algorithms. CT imaging was performed with iterative reconstruction technique and/or automated exposure control to reduce radiation dose. FINDINGS: There are 5 non-rib bearing lumbar type vertebrae, the lowest labeled L5 in this report as identified by the lumbosacral angle and iliolumbar ligaments. The redemonstration of postsurgical changes compatible with decompressive laminectomies L3-S1, intervertebral discectomies L1-S1 and posterior spinal instrumentation T9-S1 when compared to the prior radiograph from 02/25/2018. The surgical hardware appears intact, with solid osseous integration. There is similar appearing comminuted craniocaudally oriented fracture through the central L2 vertebral body with anterior inferior displacement of the anterior half of the vertebral body. There is anterior inferior subluxation of the L1-L2 intervertebral disc spacer device, unchanged when compared to the prior radiograph. There is resultant focal lordotic angulation, image 95 of series 801. No other displaced fractures identified. No significant retropulsion of the posterior cortex identified. Evaluation of the visualized soft tissues demonstrates postsurgical edematous changes throughout the lumbar paraspinal musculature. No loculated collections identified. Surgical site drain is noted to the right of midline at the L2 level. No retroperitoneal collections identified. No hydronephrosis. Axial images through the disc spaces demonstrate the following: L1-L2: Moderate central canal stenosis secondary to large posterior facet osteophytes bilaterally, image 151 of series 9. Marked bilateral neural foraminal stenosis is also noted. L2-L3: Severe bilateral neural foraminal stenosis with complete effacement of the neural foramen, images 86 and 106 of series 801, secondary to subluxation of the inferior articular processes secondary to focal lordosis at this level. Central canal is decompressed. L3-L4: Disc is surgically absent. Spinal canal is decompressed. Neural foramina are patent bilaterally. L4-L5: Disc is surgically absent. Spinal canal is decompressed. Neural foramina are patent bilaterally. L5-S1: Disc is surgically absent. Spinal canal is decompressed. Neural foramina are patent bilaterally. Evaluation of other visualized levels demonstrates no significant posterior disc disease, spinal canal, subarticular zone, or neural foraminal stenosis. IMPRESSION: Similar postsurgical changes compatible with intervertebral discectomies L1-S1, decompressive laminectomies L3-S1 and posterior spinal instrumentation T9-S1 when compared with the prior radiograph from 02/25/2018, including severe bilateral neural foraminal stenosis at L2-L3 secondary to effacement from the L3 inferior articular processes related to lordotic angulation of the comminuted L2 vertebral body fracture. [facility]-[id number] Performing Organization Address City/State/Zipcode Phone Number [facility] [address] [place] [address] * CT Thoracic Spine Wo Contrast (02/28/2018 2:55 PM TESTER ELECTRONIC SCALE) Specimen Narrative Performed At EXAMINATION: CT THORACIC SPINE WO CONTRAST [facility] CLINICAL HISTORY: recent surgery COMPARISON:MRI T-spine 12/29/2017. TECHNIQUE: Non contrast axial images of the thoracic spine were obtained with coronal and sagittal reconstructed algorithms.CT imaging was performed with iterative reconstruction technique and/or automated exposure control to reduce radiation dose. FINDINGS: 12 rib-bearing thoracic type vertebrae visualized. Interval postsurgical changes compatible with posterior spinal instrumentation T9 through the lumbar spine when compared to the prior MRI from 12/29/2017. Visualized hardware appears intact, with solid osseous integration. The alignment of the spine is within normal limits. No subluxation. No displaced fractures identified. There appears to be moderate left lateral recess stenosis at T10-T11 secondary to left posterior facet osteophyte, image 59 of series 303. There is also moderate to marked bilateral neural foraminal stenosis related to posterior facet osteophytes. No significant posterior disc disease, spinal canal, subarticular zone or neural foraminal stenosis throughout the remaining thoracic spine. The visualized soft tissues demonstrate postsurgical edematous changes throughout the thoracolumbar paraspinal musculature. No loculated collections identified. No emphysema. Moderate pleural effusions are noted bilaterally. There is compressive atelectasis within the posterior basal segments of the lower lobes bilaterally. Right IJ central venous catheter partially imaged. No hydronephrosis. IMPRESSION: Interval postsurgical changes compatible with thoracolumbar posterior spinal instrumentation T9 and below when compared to the prior MRI from 12/29/2017, with expected postoperative findings as detailed above. [facility]-[id number] Procedure Note Hm Interface, Radiology Results Incoming - 02/28/2018 3:13 PM TESTER ELECTRONIC SCALE EXAMINATION: CT THORACIC SPINE WO CONTRAST CLINICAL HISTORY: recent surgery COMPARISON: MRI T-spine 12/29/2017. TECHNIQUE: Non contrast axial images of the thoracic spine were obtained with coronal and sagittal reconstructed algorithms. CT imaging was performed with iterative reconstruction technique and/or automated exposure control to reduce radiation dose. FINDINGS: 12 rib-bearing thoracic type vertebrae visualized. Interval postsurgical changes compatible with posterior spinal instrumentation T9 through the lumbar spine when compared to the prior MRI from 12/29/2017. Visualized hardware appears intact, with solid osseous integration. The alignment of the spine is within normal limits. No subluxation. No displaced fractures identified. There appears to be moderate left lateral recess stenosis at T10-T11 secondary to left posterior facet osteophyte, image 59 of series 303. There is also moderate to marked bilateral neural foraminal stenosis related to posterior facet osteophytes. No significant posterior disc disease, spinal canal, subarticular zone or neural foraminal stenosis throughout the remaining thoracic spine. The visualized soft tissues demonstrate postsurgical edematous changes throughout the thoracolumbar paraspinal musculature. No loculated collections identified. No emphysema. Moderate pleural effusions are noted bilaterally. There is compressive atelectasis within the posterior basal segments of the lower lobes bilaterally. Right IJ central venous catheter partially imaged. No hydronephrosis. IMPRESSION: Interval postsurgical changes compatible with thoracolumbar posterior spinal instrumentation T9 and below when compared to the prior MRI from 12/29/2017, with expected postoperative findings as detailed above. [facility]-[id number] Performing Organization Address City/State/Zipcode Phone Number [facility] [address] [place] [address] * Ionized calcium (02/28/2018 1:54 AM TESTER ELECTRONIC SCALE) Only the most recent of 4 results within the time period is included. pH 7.60 [facility] Ionized calcium 1.07 (L) 1.11 - 1.32 mmol/L [facility] Specimen Plasma specimen Performing Organization Address City/[facility] Phone Number [facility] DEPARTMENT OF [address] [place] [address] PATHOLOGY AND GENOMIC MEDICINE [address] * Intraoperative monitoring (02/26/2018 3:05 PM TESTER ELECTRONIC SCALE) Narrative Performed At * Hemoglobin & hematocrit (02/25/2018 7:12 PM TESTER ELECTRONIC SCALE) Only the most recent of 2 results within the time period is included. HGB 11.1 (L) 14.0 - 18.0 g/dL [facility] HCT 34.2 (L) 41.0 - 51.0 % [facility] Specimen Blood Performing Organization Address [facility] Phone Number [facility] DEPARTMENT OF [address] [place] [address] PATHOLOGY AND GENOMIC MEDICINE [address] * XR Lumbar Spine 1 Vw (02/25/2018 1:30 PM TESTER ELECTRONIC SCALE) Only the most recent of 2 results within the time period is included. Specimen Narrative Performed At EXAMINATION:XR LUMBAR SPINE 1 VW [facility] NUMBER OF VIEWS: 1 CLINICAL HISTORY:Intraoperative imaging COMPARISON:None. FINDINGS: Portal intraoperative lateral view lumbar spine does not demonstrate the lumbosacral junction therefore cannot be absolutely certain as to the levels. There are however what appear to be bilateral pedicle pedicle screws at L5, L4, L3, L2, L1, T12, T11, T10 and T9. It appears to be a solitary eleuterio contacting screws from L4 to T12. There is a wound clamp projected along the posterior aspect of the spine at L1 and another at T10-11. There are a few berna projected over the patient's back. There are grafts in the disc spaces at L3-4 and L4-5. There is a graft in the anterior aspect of the disc space at L1 to where there is fracture of the anterior half of the L2 vertebral body with the anterior fragment displaced inferiorly. IMPRESSION: Intraoperative imaging. [facility]-[id number] Procedure Note Interface, Radiology Results Incoming - 02/25/2018 4:11 PM TESTER ELECTRONIC SCALE EXAMINATION: XR LUMBAR SPINE 1 VW NUMBER OF VIEWS: 1 CLINICAL HISTORY: Intraoperative imaging COMPARISON: None. FINDINGS: Portal intraoperative lateral view lumbar spine does not demonstrate the lumbosacral junction therefore cannot be absolutely certain as to the levels. There are however what appear to be bilateral pedicle pedicle screws at L5, L4, L3, L2, L1, T12, T11, T10 and T9. It appears to be a solitary eleuterio contacting screws from L4 to T12. There is a wound clamp projected along the posterior aspect of the spine at L1 and another at T10-11. There are a few berna projected over the patient's back. There are grafts in the disc spaces at L3-4 and L4-5. There is a graft in the anterior aspect of the disc space at L1 to where there is fracture of the anterior half of the L2 vertebral body with the anterior fragment displaced inferiorly. IMPRESSION: Intraoperative imaging. [facility]-[id number] Performing Organization Address [facility] [place] [address] * Urine culture (02/25/2018 12:37 PM TESTER ELECTRONIC SCALE) Only the most recent of 2 results within the time period is included. Urine culture growth after 24 hours [facility] isolate Comment: AMISH Specimen Information HOSPITAL Specimen Source: Urine Specimen Site: [facility] Catheterized Specimen Urine Performing Organization Address [facility] Phone Number [facility] [place] [place] [address] PATHOLOGY AND [facility] MEDICINE [address] * Fungus smear (02/25/2018 10:00 AM TESTER ELECTRONIC SCALE) Fungus smear No fungi observed. HARVYE Comment: AMISH Specimen Information HOSPITAL Specimen Source: Urine Specimen Site: [facility] Catheterized Specimen Urine Performing Organization Address [facility] Phone Number [facility] [place] [address] PATHOLOGY AND [facility] MEDICINE [address] * Fungus culture (02/25/2018 10:00 AM TESTER ELECTRONIC SCALE) Fungus culture No growth after 4 weeks of [facility] isolate incubation. [facility]ISH Comment: HOSPITAL Specimen Information Specimen Source: Urine Specimen Site: [facility] Catheterized Specimen Urine Performing Organization Address City/State/Zipcode Phone Number [facility] DEPARTMENT OF [address] [place] [address] PATHOLOGY AND GENOMIC MEDICINE [address] * Urinalysis, automated with microscopy (02/22/2018 11:34 AM TESTER ELECTRONIC SCALE) Color, UA Yellow [facility] Appearance, UA Clear [facility] Specific 1.019 1.001 - 1.035 [place] gravity, [facility] pH, UA 6.0 5.0 - 8.5 [facility] Protein, UA Negative Negative [facility] Glucose, UA Negative Negative [facility] Ketones, UA Negative Negative [facility] Bilirubin, UA Negative Negative [facility] Blood, UA Small (A) Negative [facility] Nitrite, UA Negative Negative [facility] Urobilinogen, <2.0 <2.0 [facility] Leukocyte Negative Negative [facility] WBC, UA 1 0 - 1 /HPF [facility] RBC, UA 1 0 - 5 /HPF [facility] Bacteria, UA Few None seen [facility] Yeast, UA None seen [facility] Yeast with None seen [facility] [facility] Specimen Urine Performing Organization Address City/[facility]/Zipcode Phone Number [facility] DEPARTMENT OF [address] [place] [address] PATHOLOGY AND GENOMIC MEDICINE [address] * XR Abdomen 1 Vw Portable (02/19/2018 12:00 PM TESTER ELECTRONIC SCALE) Specimen Narrative Performed At EXAM: [facility] XR ABDOMEN 1 VW PORTABLE INDICATION: Unstable ICU new admit COMPARISON: None. IMPRESSION: Exam limited by field of view which does not include the entirety of the bilateral diaphragms or the right hemiabdomen. Discectomy L1-S1 with multilevel placement of intervertebral spacing devices. Posterior decompression L3-S1. Posterior eleuterio and screw fixation L3-L4. Bilateral osseous bar formation. Moderate gas distention stomach. Minimal gas distention multiple loops small and large bowel scattered throughout the abdomen without evidence of obstruction, pneumatosis, portal venous gas, pneumoperitoneum. Minimal degenerative changes of the lumbar spine. [facility]-[id number] Procedure Note Interface, Radiology Results Incoming - 02/19/2018 1:05 PM TESTER ELECTRONIC SCALE EXAM: XR ABDOMEN 1 VW PORTABLE INDICATION: Unstable ICU new admit COMPARISON: None. IMPRESSION: Exam limited by field of view which does not include the entirety of the bilateral diaphragms or the right hemiabdomen. Discectomy L1-S1 with multilevel placement of intervertebral spacing devices. Posterior decompression L3-S1. Posterior eleuterio and screw fixation L3-L4. Bilateral osseous bar formation. Moderate gas distention stomach. Minimal gas distention multiple loops small and large bowel scattered throughout the abdomen without evidence of obstruction, pneumatosis, portal venous gas, pneumoperitoneum. Minimal degenerative changes of the lumbar spine. [facility]-[id number] Performing Organization Address City/State/Zipcode Phone Number [facility] [address] [place] [address] * Intraoperative monitoring (02/19/2018 11:29 AM TESTER ELECTRONIC SCALE) Narrative Performed At INTRAOPERATIVE NEURO MONITORING Patient Name: Sheryl Ewing Date of : 1950 Gender: male Surgical Procedure: STAGE 1 L1-L2 L2-L3 ANTERIOR OSTEOTOMIES WITH 20 CAGE @L2-L3 AND 15 CAGE @ L1-L2 WITH ANTERIOR SPINAL FUSION WITH INSTRUMENTATION AND BMP OR: Geovanny Room #: 9 Tech #1: Kelli Khalil Start Time: 0818 End Time: 1024 Total Time (in hours): 2.1 Date of Service: 02/19/18 Physician IOM Time: 2 Hours Procedure(s) performed During IOM: 03346, 81715, 45652 ICD10: M47.16 Stimulation Parameters Ulnar nerves individually stimulated at the wrist. Rate 4.7 Hz, Intensity 20-60 mA, Duration 0.3 ms, Filters 30-500 Hz, Notch Off Posterior Tibial nerves individually stimulated at the ankle., Rate 4.7 Hz, Intensity 30 - 80 mA, Duration 0.3 ms, Filters 30-500 Hz, Notch Off Motor strip stimulated anterior to C3 and C4 with alternating polarities, Intensity 500 V Train Rate 4-5 ASUNCION 2-3 ms, Filter 30-2KHz Notch off Technical Summary Intraoperative neurophysiological monitoring was performed using a combination of upper and lower extremity somatosensory evoked potentials (SEP), transcranial electrical motor potentials (TcMEP) and running electromyography (EMG) of the innervated muscle groups. A real time connection was established by the monitoring technologist with the examining neurologist throughout the operative procedure. Lower extremity somatosensory evoked potentials were recorded peripherally at the popliteal fossa and centrally at the cervical and cortical levels following posterior tibial nerve stimulation at the ankle. Upper extremity somatosensory evoked potentials were recorded centrally at the cervical and cortical levels following ulnar nerve stimulation at the wrist. There were no significant surgically related changes in amplitude or latency to the cervical and/or cortical SEP responses throughout the surgical procedure. TcMEPs were recorded peripherally from the upper and lower extremities following alternating polarity motor strip stimulation. Post-induction TcMEP responses to motor cortex stimulation were clear and reproducible bilaterally. No significant surgically related changes in amplitude or latency of the TcMEPs were noted throughout the surgical procedure. At closing responses were judged to be essentially unchanged from those of post positioning baselines. Free running EMG of the innervated muscle groups was monitored continuously throughout the operative procedure with no sustained neurotonic discharges noted. Conclusion These results suggest the absence of a significant delay or reduction in amplitude of cervical and cortical SEP responses suggest the absence of untoward, secondary changes to posterior spinal cord function as a result of this surgical procedure. The absence of sustained neurotonic discharges on free-running EMG suggests that the monitored nerve roots remained undisturbed during this procedure. All values were reported to the surgeon in real time. . * ANESTHESIA INTUBATION (02/19/2018 9:06 AM TESTER ELECTRONIC SCALE) Narrative Performed At Jef Buchanan MD 02/19/20189:09 AM ANESTHESIA INTUBATION Date/Time: 02/19/2018 7:23 AM Performed by: Jef Buchanan MD Authorized by: Les Hayes MD Location:OR Urgency:Elective Difficult Airway: No Anesthesiologist:Les Hayes MD Resident/RULING MACHINE FEEDER/AA:Jef Buchanan MD Performed by: resident/RULING MACHINE FEEDER/AA Preoxygenated with 100% O2: Yes C-spine Precautions Maintained Throughout: Yes Mask Ventilation:Easy mask Final Airway Type:Endotracheal airway Final Endotracheal Airway:ETT Cuffed: Yes Technique Used:Direct laryngoscopy Devices/Methods Used in Placement:Intubating stylet Insertion Site:Oral Blade Type:Beatris Laryngoscope Blade/Videolaryngoscope Blade Size:4 ETT Size (mm):8.0 Cuff at minimum occlusion pressure: Yes Measured from:Teeth ETT to Teeth (cm):22 Placement Verified by: CO2 detection, direct visualization and equal breath sounds Laryngoscopic view:Grade I - full view of glottis Rapid Sequence Induction (RSI): No Modified RSI: No Number of Attempts at Approach:2 First attempt with Mil 2 not successful.BMV between first and second attempt.Second attempt with MAC 4 blade successful. * MRI Thoracic Spine Wo Contrast (12/29/2017 9:00 AM TESTER ELECTRONIC SCALE) Specimen Narrative Performed At [facility] EXAMINATION:MRI THORACIC SPINE WO CONTRAST CLINICAL HISTORY:M54.5 Low back pain, G89.29 Other chronic pain, pain COMPARISON:Outside hospital x-ray of the spine dated December 01, 2017 FINDINGS: Sagittal and axial images of the thoracic spine were obtained. There is lordotic curvature of the lower thoracic spine. The bones are intact without fracture or acute edema. There is loss of disc height with disc desiccation throughout the thoracic spine from T3 through T12. Posterior spondylosis with disc bulges and shallow protrusions throughout the thoracic spine without canal stenosis. There is only minimal effacement of the ventral thecal sac. The spinal cord is intact without signal change effacement or atrophy. The thecal sac measures greater than 10 mm throughout the thoracic spine. Aorta is nonaneurysmal. There is no paraspinous mass, fluid collection or adenopathy. Facet spurring and this osteophyte changes are present throughout the thoracic spine with mild to moderate bilateral foraminal narrowing at T10-T11 and moderate narrowing at T11-T12. IMPRESSION: There is some lordosis noted at the lower thoracic spine at T9 and mild posterior spondylosis throughout the thoracic spine without significant canal stenosis. No acute osseous abnormality or spondylolisthesis identified. [id number] Procedure Note Interface, Radiology Results Incoming - 12/29/2017 10:05 AM TESTER ELECTRONIC SCALE EXAMINATION: MRI THORACIC SPINE WO CONTRAST CLINICAL HISTORY: M54.5 Low back pain, G89.29 Other chronic pain, pain COMPARISON: Outside hospital x-ray of the spine dated December 01, 2017 FINDINGS: Sagittal and axial images of the thoracic spine were obtained. There is lordotic curvature of the lower thoracic spine. The bones are intact without fracture or acute edema. There is loss of disc height with disc desiccation throughout the thoracic spine from T3 through T12. Posterior spondylosis with disc bulges and shallow protrusions throughout the thoracic spine without canal stenosis. There is only minimal effacement of the ventral thecal sac. The spinal cord is intact without signal change effacement or atrophy. The thecal sac measures greater than 10 mm throughout the thoracic spine. Aorta is nonaneurysmal. There is no paraspinous mass, fluid collection or adenopathy. Facet spurring and this osteophyte changes are present throughout the thoracic spine with mild to moderate bilateral foraminal narrowing at T10-T11 and moderate narrowing at T11-T12. IMPRESSION: There is some lordosis noted at the lower thoracic spine at T9 and mild posterior spondylosis throughout the thoracic spine without significant canal stenosis. No acute osseous abnormality or spondylolisthesis identified. [id number] Performing Organization Address City/State/Zipcode Phone Number [facility] [address] [facility] [place] [address] * Echocardiogram complete w contrast and 3D if needed (12/17/2017 10:24 AM TESTER ELECTRONIC SCALE) Specimen Narrative Performed At [facility] Echocardiography Report [address] [place] [address] Pat.Name:SHERYL EWING.ID:[id number] .Date: 12/17/2017 Refer.MD:SKYLA BEAN MD Exam Time: 9:45:00 AMStudy Type:Routine Echo Height:70inWeight:205lb BSA: 2.11 m2 DOBAge:1950,67Y Sex: MALEBP:133/84 HR:74 bpmSonogrphr: Alvaro Harris RDCS Pat. Stat.:[place] [place]:Final Echo Event ID:[id number] Order ID:[id number] Reason for Study:SYNCOPE AND COLLAPSE. HYPERTENSION Procedures:2D Echo, Colorflow Doppler, Strain SUMMARY: LV EF is normal. RV systolic function is normal. Insufficient TR jet to estimate PA systolic pressure. FINDINGS: LV: LV size is normal. LV EF is normal. Overall wall motion is normal.Estimated EF is 60-64%. RV: RV size is normal. RV systolic function is normal. LA: LA size is normal. RA: RA size is normal. AO: Aortic root diameter is normal. FRANCISCO JAVIER: No pericardial effusion. AV: Aortic valve sclerosis. MV: No structural MV abnormalities noted. PV: No structural PV abnormalities noted. TV: No structural TV abnormalities noted. Araiza: LV relaxation is normal. LV filling pressure is normal. Other:Insufficient TR jet to estimate PA systolic pressure. MEASUREMENTS: 2D Parasternal [place] LVOT 2.1 cmLA Ds2.8 cm LVIDd4.8 cmIndex2.3 cm/m Ao Rtd 3.6 cm Index1.7 cm/m LVIDs3.5 cm LV Rlcy381.5 g(122-174) LV%fs 26.8 % LVM Index 61.9 g/m2 IVSd 0.8 cmRWT0.4 LVPWd0.9 cm LA Sng Plane LA Area 11.9 cm2(8.8-23.4) LA Vol25.6 ml Index12.1 ml/m LA LngAx 4.7 cm RA Sng Plane RA Area 17 cm2(8.3-19.5) RA Vol52.9 ml Index25.1 ml/m RA LngAx 4.6 cm DOPPLER LVOT For Flow LVOT Area3.5 cm2 LVOT SV 53.2 ml LVOTpkVel 87.6 cm/sHR76.4 bpm LVOTpkPG 3.1 mmHgLVOT CO4.1 l/min LVOTmnPG 1.1 mmHgLVOT CI1.9 l/m/m2 LVOT TVI15.4 cm Signed 12/17/2017 04:56 PM Taras Reyes M.D. Procedure Note Interface, Radiology Results In - 12/17/2017 4:56 PM TESTER ELECTRONIC SCALE Echocardiography Report [address] [facility], [place] [address], [place] [address] Pat.Name: SHERYL EWING.ID: [id number] .Date: 12/17/2017 Refer.MD: SKYLA BEAN MD Exam Time: 9:45:00 AM Study Type:Routine Echo Height: 70in Weight: 205lb BSA: 2.11 m2 Age: 11 1950,67Y Sex: MALE BP: 133/84 HR: 74 bpm Sonogrphr: Alvaro Harris RDCS Pat. Stat.:Inpatient Room: M669 Study Status:Final Echo Event ID:[id number] Order ID: [id number] Reason for Study:SYNCOPE AND COLLAPSE. HYPERTENSION Procedures:2D Echo, Colorflow Doppler, Strain SUMMARY: LV EF is normal. RV systolic function is normal. Insufficient TR jet to estimate PA systolic pressure. FINDINGS: LV: LV size is normal. LV EF is normal. Overall wall motion is normal. Estimated EF is 60-64%. RV: RV size is normal. RV systolic function is normal. LA: LA size is normal. RA: RA size is normal. AO: Aortic root diameter is normal. FRANCISCO JAVIER: No pericardial effusion. AV: Aortic valve sclerosis. MV: No structural MV abnormalities noted. PV: No structural PV abnormalities noted. TV: No structural TV abnormalities noted. Araiza: LV relaxation is normal. LV filling pressure is normal. Other: Insufficient TR jet to estimate PA systolic pressure. MEASUREMENTS: 2D Parasternal [place] LVOT 2.1 cm LA Ds 2.8 cm LVIDd 4.8 cm Index 2.3 cm/m Ao Rtd 3.6 cm Index 1.7 cm/m LVIDs 3.5 cm LV Mass 130.5 g (122-174) LV%fs 26.8 % LVM Index 61.9 g/m2 IVSd 0.8 cm RWT 0.4 LVPWd 0.9 cm LA Sng Plane LA Area 11.9 cm2 (8.8-23.4) LA Vol 25.6 ml Index 12.1 ml/m LA LngAx 4.7 cm RA Sng Plane RA Area 17 cm2 (8.3-19.5) RA Vol 52.9 ml Index 25.1 ml/m RA LngAx 4.6 cm DOPPLER LVOT For Flow LVOT Area 3.5 cm2 LVOT SV 53.2 ml LVOTpkVel 87.6 cm/s HR 76.4 bpm LVOTpkPG 3.1 mmHg LVOT CO 4.1 l/min LVOTmnPG 1.1 mmHg LVOT CI 1.9 l/m/m2 LVOT TVI 15.4 cm Signed 12/17/2017 04:56 PM Taras Reyes M.D. Performing Organization Address City/State/Zipcode Phone Number [facility] [address] [phone] * Pv carotid duplex (12/17/2017 9:42 AM TESTER ELECTRONIC SCALE) Specimen Narrative Performed At [facility] Vascular Ultrasound Laboratory Carotid Artery Duplex Report [address] [id number] For quality compliance consultant purposes, the categorization of the degree of the stenosis of this exam is based on criteria described in the IAC carotid stenosis grading white paper( www.intersocietal.org/Vascular) and Toby Parham., Laurence Easton., et al. Carotid artery stenosis: leavitt-scale and Doppler US diagnosis--Society of Radiologists in Ultrasound Consensus Conference. Radiology. 2003 Nov; 229(2):340-6. Pat.Name:SHERYL EWING JPat.ID:[id number] .Date: 12/17/2017 Refer.MD:SKYLA BEAN MD Exam Time: 9:06:00 AMStudy Type:Carotid DOBAge:1950,67YSex: MALE Sonogrphr: Donald Llamas, RDMS, RVTPat. Stat.:Inpatient Room:F281-LNlusKfl: , [facility] - 4: [address] Echo Event ID:[id number] Order ID:[id number] Reason for Study:Syncopal episode. HTN, HLP, OA, peripheral neuropathy. Procedures:Colorflow, Grayscale/2D, Pulsed wave Doppler Race:C SUMMARY: PHYSICAL ASSESSMENT BloodPulsesCarotid Pressure Carotid TemporalBruit Right 133/84 ++0 Left 134/82 ++0 CAROTID ARTERY SCAN RIGHT:There is smooth intimal lining in the common carotid artery, internal and external carotid artery.Colorflow is normal. LEFT: There is smooth intimal lining in the common carotid artery and external carotid artery. There is focal hard, non-stenotic plaque noted in the bulb. Colorflow is normal. PRELIMINARY FINDINGS 1.Less than 50% stenosis noted in the left bulb/internal carotid artery. 2.Antegrade vertebral arteries, bilaterally. PHYSICIAN INTERPRETATION Bilateral carotid duplex examination demonstrated atherosclerotic plaques in the left bulb. Less than 50% stenosis in the left internal carotid artery. Right side is normal. Carotid Findings:RightLeft Verteb.Flw AntegradeAntegrade Subclavian TriphasicTriphasic MEASUREMENTS: DOPPLER CCA Dist CCA Dist PSV88 cm/sCCA Dist PSV88 cm/s CCA Dist EDV11 cm/sCCA Dist EDV16 cm/s CCA Mid CCA Mid PSV 92 cm/sCCA Mid PSV 98 cm/s CCA Mid EDV 14 cm/sCCA Mid EDV 19 cm/s Right CCA Prox CCA Prox PSV 108 cm/sCCA Prox EDV16 cm/s ECA Prox ECA Prox PSV68 cm/sECA Prox EDV 9 cm/s ICA Dist ICA Dist PSV30 cm/Verona Dist PSV38 cm/s ICA Dist EDV 8 cm/[place]ona Dist EDV17 cm/s ICA Mid ICA Mid PSV 40 cm/[place]ona Mid EDV 10 cm/s ICA Mid PSV 35 cm/s Right ICA Mid ICA Mid EDV 12 cm/s ICA Prox ICA Prox PSV42 cm/Verona Prox EDV 7 cm/s Vertebral Vertebral PSV 47 cm/sVertebral PSV 50 cm/s Vertebral EDV9 cm/sVertebral EDV9 cm/s Right Subclavian Subclavian PSV 138 cm/sSubclavian EDV 0 cm/s Left CCA Prox CCA Prox PSV 130 cm/s CCA Prox CCA Prox EDV23 cm/s Left Subclavian Subclavian PSV 162 cm/sSubclavian EDV 0 cm/s Left ICA Prox ICA Prox PSV74 cm/Verona Prox EDV14 cm/s Left ECA Prox ECA Prox PSV98 cm/sECA Prox EDV11 cm/s Right SCA Prox SCA Prox PSV 138 cm/sSCA Prox EDV 0 cm/s Left SCA Prox SCA Prox PSV 161 cm/sSCA Prox EDV 0 cm/s Right ICA/CCA Ratio ICA/CCA PSV0.457 Left ICA/CCA Ratio ICA/CCA PSV0.755 Signed 12/18/2017 07:44 AM Demarcus Agudelo MD, RPVI Procedure Note Interface, Radiology Results In - 12/18/2017 7:45 AM [facility] Vascular Ultrasound Laboratory Carotid Artery Duplex Report [address] [address] For quality compliance consultant purposes, the categorization of the degree of the stenosis of this exam is based on criteria described in the IAC carotid stenosis grading white paper( www.intersocietal.org/Vascular) and Toby Parham., Laurence Easton., et al. Carotid artery stenosis: leavitt-scale and Doppler US diagnosis--Society of Radiologists in Ultrasound Consensus Conference. Radiology. 2003 Nov; 229(2):340-6. Pat.Name: SHERYL EWING Pat.ID: [id number] .Date: 12/17/2017 Refer.MD: SKYLA BEAN MD Exam Time: 9:06:00 AM Study Type:Carotid Age: 11 1950,67Y Sex: MALE Sonogrphr: Donald Llamas RDMS, RVT Pat. Stat.:[place] [facility] [place] Vol: ST, CPT - 4: [address] Echo Event ID:[id number] Order ID: [id number] Reason for Study:Syncopal episode. HTN, HLP, OA, peripheral neuropathy. Procedures:Colorflow, Grayscale/2D, Pulsed wave Doppler Race: C SUMMARY: PHYSICAL ASSESSMENT Blood Pulses Carotid Pressure Carotid Temporal Bruit Right 133/84 + + 0 Left 134/82 + + 0 CAROTID ARTERY SCAN RIGHT: There is smooth intimal lining in the common carotid artery, internal and external carotid artery.Colorflow is normal. LEFT: There is smooth intimal lining in the common carotid artery and external carotid artery. There is focal hard, non-stenotic plaque noted in the bulb. Colorflow is normal. PRELIMINARY FINDINGS 1. Less than 50% stenosis noted in the left bulb/internal carotid artery. 2. Antegrade vertebral arteries, bilaterally. PHYSICIAN INTERPRETATION Bilateral carotid duplex examination demonstrated atherosclerotic plaques in the left bulb. Less than 50% stenosis in the left internal carotid artery. Right side is normal. Carotid Findings: Right Left Verteb.Flw Antegrade Antegrade Subclavian Triphasic Triphasic MEASUREMENTS: DOPPLER CCA Dist CCA Dist PSV 88 cm/s CCA Dist PSV 88 cm/s CCA Dist EDV 11 cm/s CCA Dist EDV 16 cm/s CCA Mid CCA Mid PSV 92 cm/s CCA Mid PSV 98 cm/s CCA Mid EDV 14 cm/s CCA Mid EDV 19 cm/s Right CCA Prox CCA Prox PSV 108 cm/s CCA Prox EDV 16 cm/s ECA Prox ECA Prox PSV 68 cm/s ECA Prox EDV 9 cm/s ICA Dist ICA Dist PSV 30 cm/s ICA Dist PSV 38 cm/s ICA Dist EDV 8 cm/s ICA Dist EDV 17 cm/s ICA Mid ICA Mid PSV 40 cm/s ICA Mid EDV 10 cm/s ICA Mid PSV 35 cm/s Right ICA Mid ICA Mid EDV 12 cm/s ICA Prox ICA Prox PSV 42 cm/s ICA Prox EDV 7 cm/s Vertebral Vertebral PSV 47 cm/s Vertebral PSV 50 cm/s Vertebral EDV 9 cm/s Vertebral EDV 9 cm/s Right Subclavian Subclavian PSV 138 cm/s Subclavian EDV 0 cm/s Left CCA Prox CCA Prox PSV 130 cm/s CCA Prox CCA Prox EDV 23 cm/s Left Subclavian Subclavian PSV 162 cm/s Subclavian EDV 0 cm/s Left ICA Prox ICA Prox PSV 74 cm/s ICA Prox EDV 14 cm/s Left ECA Prox ECA Prox PSV 98 cm/s ECA Prox EDV 11 cm/s Right SCA Prox SCA Prox PSV 138 cm/s SCA Prox EDV 0 cm/s Left SCA Prox SCA Prox PSV 161 cm/s SCA Prox EDV 0 cm/s Right ICA/CCA Ratio ICA/CCA PSV 0.457 Left ICA/CCA Ratio ICA/CCA PSV 0.755 Signed 12/18/2017 07:44 AM Demarcus Agudelo MD, RPVI Performing Organization Address City/State/Zipcode Phone Number [facility] [address] [place] [address] * T4, free (12/17/2017 4:16 AM TESTER ELECTRONIC SCALE) T4, free 1.2 0.9 - 1.7 ng/dL [facility] DEPARTMENT OF PATHOLOGY AND GENOMIC MEDICINE Specimen Plasma specimen Performing Organization Address [facility] Phone Number [facility] DEPARTMENT OF [address] [place] [address] PATHOLOGY AND GENOMIC MEDICINE * Lipid panel (12/17/2017 4:16 AM TESTER ELECTRONIC SCALE) Cholesterol 111 <200 mg/dL [facility] DEPARTMENT OF PATHOLOGY AND GENOMIC MEDICINE Triglycerides 54 <150 mg/dL [facility] DEPARTMENT OF PATHOLOGY AND GENOMIC MEDICINE HDL cholesterol 52 >40 mg/dL [facility] DEPARTMENT OF PATHOLOGY AND GENOMIC MEDICINE LDL cholesterol 58Comment: Result obtained by <100 mg/dL [facility] DEPARTMENT direct LDL measurement OF PATHOLOGY AND GENOMIC MEDICINE Lipid panel SeeBelow [facility] DEPARTMENT interpretation Comment: OF PATHOLOGY Total Cholesterol AND GENOMIC (mg/dL) MEDICINE <200 Desirable 200-239Borderline -high >=240High Triglycerides (mg/dL) <150 Normal 150-199Borderline -high 200-499High >=500Very high HDL Cholesterol (mg/dL) <40Low (male) <40Low (female) LDL Cholesterol (mg/dL) <100 Optimal 100-129Near or above optimal 130-159Borderline -high 160-189High >=190Very high Risk Catergories that modify LDL goals. Risk Catergories LDL goal (mg/dL) CHD and CHD risk equivalent<100 (10-year risk >20%) Multiple (2+) risk factors <130 (10-year risk=<20%) 0-1 risk factors <160 (<10-year risk) Defining levels of lipids in metabolic syndrome Triglycerides >=150 mg/dL HDL Cholesterol Men <40 mg/dL Women <40 mg/dL Non-HDL cholesterol is a second target for therapy in persons with high triglycerides (>=200 mg/dL) Specimen Plasma specimen Performing Organization Address [facility] Cent[facility]ode Phone Number [facility] DEPARTMENT OF [address] [place] [address] PATHOLOGY AND [facility] MEDICINE * EEG (routine) (12/16/2017 9:29 PM TESTER ELECTRONIC SCALE) Narrative Performed At EEG [facility] Date of Service: 12/16/17 Awake Recording: The occipital dominant rhythm is 10-11 Hz. 18-22 Hz activity is present in all regions. Sleep Recording:No sleep was recorded. Hyperventilation: Not performed. Photic Stimulation: No abnormality elicited. Impression The background activity is within the range of normal variation. No lateralized or epileptiform activity was recorded. ICD-10 Code: R569 * MRI Brain W Wo Contrast (12/16/2017 8:46 PM TESTER ELECTRONIC SCALE) Specimen Narrative [facility]formed At [facility] EXAMINATION: MRI BRAIN W WO CONTRAST COMPARISON: None CLINICAL HISTORY Altered level of consciousness (LOC)unexplained, Concern for HYDRAULIC MINER inflammation infection neoplasm. TECHNIQUE: Multiplanar multisequence examination was performed with and without contrast Regional brain segmentation and volumetric analysis was processed with Neuroreader software on an independent workstation and reviewed. FINDINGS: There is no definite diffusion restriction. The ventricular system and subarachnoid spaces are mildly dilated. There is mild chronic microvascular gliosis in the centrum semiovale and in the leann bilaterally. There is no acute hemorrhage or hemosiderin deposition. There is no abnormal enhancement of the brain parenchyma or the leptomeninges. There is no disproportionate selective volume loss of the frontal or temporal lobes. IMPRESSION: Mild involutional changes. No acute ischemia, acute hemorrhage, or abnormal enhancing lesions. [facility]-[id number] Procedure Note Interface, Radiology Results Incoming - 12/16/2017 8:52 PM TESTER ELECTRONIC SCALE EXAMINATION: MRI BRAIN W WO CONTRAST COMPARISON: None CLINICAL HISTORY Altered level of consciousness (LOC) unexplained, Concern for HYDRAULIC MINER inflammation infection neoplasm. TECHNIQUE: Multiplanar multisequence examination was performed with and without contrast Regional brain segmentation and volumetric analysis was processed with Neuroreader software on an independent workstation and reviewed. FINDINGS: There is no definite diffusion restriction. The ventricular system and subarachnoid spaces are mildly dilated. There is mild chronic microvascular gliosis in the centrum semiovale and in the leann bilaterally. There is no acute hemorrhage or hemosiderin deposition. There is no abnormal enhancement of the brain parenchyma or the leptomeninges. There is no disproportionate selective volume loss of the frontal or temporal lobes. IMPRESSION: Mild involutional changes. No acute ischemia, acute hemorrhage, or abnormal enhancing lesions. [facility]-[id number] Performing Organization Address City/State/Zipcode Phone Number [facility] [address] [place] [address] * Urinalysis screen and microscopy, with reflex to culture (12/16/2017 5:22 PM TESTER ELECTRONIC SCALE) Specimen site Clean catch [facility] DEPARTMENT OF PATHOLOGY AND GENOMIC MEDICINE Color, UA Straw [facility] DEPARTMENT OF PATHOLOGY AND GENOMIC MEDICINE Appearance, UA Clear [facility] DEPARTMENT OF PATHOLOGY AND GENOMIC MEDICINE Specific 1.010 1.001 - 1.035 [facility] DEPARTMENT gravity, UA OF PATHOLOGY AND GENOMIC MEDICINE pH, UA 7.0 5.0 - 8.5 [facility] DEPARTMENT OF PATHOLOGY AND GENOMIC MEDICINE Protein, UA 1+ (A) Negative [facility] DEPARTMENT OF PATHOLOGY AND GENOMIC MEDICINE Glucose, UA Negative Negative [facility] DEPARTMENT OF PATHOLOGY AND GENOMIC MEDICINE Ketones, UA Negative Negative [facility] DEPARTMENT OF PATHOLOGY AND GENOMIC MEDICINE Bilirubin, UA Negative Negative [facility] DEPARTMENT OF PATHOLOGY AND GENOMIC MEDICINE Blood, UA Negative Negative [facility] DEPARTMENT OF PATHOLOGY AND GENOMIC MEDICINE Nitrite, UA Negative Negative [facility] DEPARTMENT OF PATHOLOGY AND GENOMIC MEDICINE Urobilinogen, <2.0 <2.0 [facility] DEPARTMENT UA OF PATHOLOGY AND GENOMIC MEDICINE Leukocyte Negative Negative [facility] DEPARTMENT esterase, UA OF PATHOLOGY AND GENOMIC MEDICINE Epithelial <1 /HPF [facility] DEPARTMENT cells, UA OF PATHOLOGY AND GENOMIC MEDICINE WBC, UA <1 0 - 1 /HPF [facility] DEPARTMENT OF PATHOLOGY AND GENOMIC MEDICINE RBC, UA <1 0 - 5 /HPF [facility] DEPARTMENT OF PATHOLOGY AND GENOMIC MEDICINE Bacteria, UA Few None seen [facility] DEPARTMENT OF PATHOLOGY AND GENOMIC MEDICINE Yeast, UA None seen [facility] DEPARTMENT OF PATHOLOGY AND GENOMIC MEDICINE Yeast with None seen [facility] DEPARTMENT pseudohyphae, OF PATHOLOGY UA AND GENOMIC MEDICINE Hyaline casts, 4 /LPF [facility] DEPARTMENT OF PATHOLOGY AND GENOMIC MEDICINE Specimen Urine Performing Organization Address City/[facility] Phone Number [place] [phone] PATHOLOGY AND GENOMIC MEDICINE * Hemoglobin A1c (12/16/2017 5:19 PM TESTER ELECTRONIC SCALE) Hemoglobin A1C 5.5 4.0 - 5.6 % [facility] DEPARTMENT Comment: OF PATHOLOGY HbA1c cutoffs for diagnosing AND GENOMIC diabetes: MEDICINE 4.0% - 5.6%=normal 5.7% - 6.4%=increased risk for diabetes (prediabetes) >=6.5%=diabetes Goals for glycemic control (ADA 2016) < 7.0%Target for non adults with diabetes. More or less stringent targets may be appropriate for individual patients. <7.5% Target for Children and adolescents with type 1 diabetes. Specimen Blood Performing Organization Address City/State/Zipcode Phone Number [place] [phone] [place] [address] PATHOLOGY AND GENOMIC MEDICINE * Lipase level (12/16/2017 1:59 PM TESTER ELECTRONIC SCALE) Lipase 15 13 - 60 U/L [facility] DEPARTMENT OF PATHOLOGY AND GENOMIC MEDICINE Specimen Plasma specimen Performing Organization Address [facility]/State/Zipcode Phone Number [facility] DEPARTMENT OF [address] [place] [address] PATHOLOGY AND GENOMIC MEDICINE * CT Spine External Study (12/01/2017 12:34 PM CDT) Specimen Narrative Performed At This exam was not acquired at a [employer] facility and has not been [facility] interpreted by a [employer] Provider.The exam was imported into our imaging system for comparisons purposes. Performing Organization Address [facility]/Zipcode Phone Number [facility] [address] [place] [address] * MRI Spine External Study (12/01/2017 11:40 AM CDT) Specimen Narrative Performed At This exam was not acquired at a [employer] facility and has not been [facility] interpreted by a [employer] Provider.The exam was imported into our imaging system for comparisons purposes. Performing Organization Address [facility] Centercode Phone Number [facility] [address] [place] [address] * XR Spine External Study (12/01/2017 11:21 AM CDT) Only the most recent of 2 results within the time period is included. Specimen Narrative Performed At This exam was not acquired at a [employer] facility and has not been [facility] interpreted by a [employer] Provider.The exam was imported into our imaging system for comparisons purposes. 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
--- OUTSIDE RECORDS SUMMARY | 2018-10-19 06:38 | XMS REPORT ---
Author Author [facility] Organization [facility] Address Unknown Phone Unavailable Care Team Providers Care News Department Intern Name Role Phone OTIS SARKAR Unavailable Unavailable Payers Payer Name Policy Type Policy Number Effective Date Expiration Date Problems This patient has no known problems. Allergies, Adverse Reactions, Alerts Allergy Name Allergy Type Status Severity Reaction(s) Onset Date Inactive Date Treating Clinician Comments No Known Allergies DA Active U 2017-12-01 00:00:00 No Known Allergies DA Active U 2010-05-01 00:00:00 Medications This patient has no known medications. Results Test Description Test Time Test Comments Text Results Atomic Results Result Comments CHEST 2 VIEWS 2018-10-18 11:38:00 [place] [address] Patient Name: SHERYL RIZZO MR #: [id number] : 1950 Age/Sex: 67/M Req #: [id number] Adm Physician: Ordered by: OTIS SARKAR MD Report #: [id number] Location: OR Room/Bed: Procedure: [id number] DX/CHEST 2 VIEWS Exam Date: 10/18/18 Exam Time: 1020 REPORT STATUS: Signed EXAMINATION: CHEST 2 VIEWS INDICATION: Pre-operative COMPARISON: None FINDINGS: LINES/TUBES:None LUNGS:The lungs are well-inflated. No focal consolidation or pulmonary edema. PLEURA:Trace left pleural effusion. No pneumothorax. MEDIASTINUM:The cardiomediastinal silhouette appears normal in size and shape. BONES/SOFT TISSUES:No acute osseous injury. Thoracolumbar fusion hardware. ABDOMEN:No free air under the diaphragm. IMPRESSION: No focal pneumonia or pulmonary edema. Signed by: Edilson Copeland MD on 10/18/2018 11:40 AM Dictated By: EDILSON COPELAND MD [id number] Transcribed By: TIM on 10/18/18 1140 COPY TO: OTIS SARKAR MD
[2018-10-19] MEDS ORDERED: GABAPENTIN 300 MG CAP ONE (06:49)
[2018-10-19] MEDS ORDERED: CELECOXIB 200 MG CAP ONE (06:49)
[2018-10-19] MEDS ORDERED: DEXAMETHASONE SOD PHOS 10 MG/1 ML VIAL ONE (06:49)
[2018-10-19] MEDS ORDERED: CEFAZOLIN SOD 1 GM/NS 50ML 100 ML IV ONE (06:50)
[2018-10-19] MEDS ORDERED: VANCOMYCIN HCL 500 MG ONE ×2 (06:57→08:38)
[2018-10-19] MEDS ORDERED: SODIUM CHLORIDE 0.9% 500ML 500 ML ONE (06:58)
[2018-10-19] MEDS ORDERED: TRANEXAMIC ACID 1,000 MG/10 ML ML ONE (06:58)
[2018-10-19] MEDS ORDERED: BACITRACIN 50,000 UNIT VIAL ONE (06:58)
[2018-10-19] MEDS ORDERED: BUPIVACAINE 7.5MG/ML /DEXTROSE 82.5MG/ML 2 ML AMP INJ ONE (07:08)
[2018-10-19] MEDS ORDERED: ROPIVACAINE 246.25 MG, EPINEPHRINE HCL 1:1000 1ML 0.5 MG, CLONIDINE HCL 0.08 MG, KETORO... INJ ONE ×5 (07:30)
[2018-10-19] MEDS ORDERED: PROMETHAZINE HCL (IM) 25 MG/ML VIAL INJ PRN (09:00)
[2018-10-19] MEDS ORDERED: DOCUSATE SODIUM 100 MG CAP PO PRN (09:00)
[2018-10-19] MEDS ORDERED: KETOROLAC TROMETHAMINE 30 MG/ML VIAL IV PRN (09:00)
[2018-10-19] MEDS ORDERED: DIPHENHYDRAMINE HCL INJ 50 MG/ML VIAL IM/IV PRN (09:00)
[2018-10-19] MEDS ORDERED: ONDANSETRON HCL INJ 2MG/ML 2ML 2 MG/ML VIAL IV PRN (09:00)
[2018-10-19] MEDS ORDERED: ACETAMINOPHEN 650 MG SUPP PR PRN (09:00)
[2018-10-19] MEDS ORDERED: HYDROCODONE/APAP 5MG-325MG TAB PO PRN (09:00)
[2018-10-19] MEDS ORDERED: HYDROCODONE/APAP 7.5MG-325MG 1 EA TAB PO PRN (09:00)
--- OUTSIDE RECORDS SUMMARY | 2018-10-19 09:49 | XMS REPORT | Clinical Summary ---
Author Author [facility] Address Unknown Phone Unavailable Care Team Providers Care Compliance Analyst Name Role Phone Liban Zurita MD PCP [...] 2 (two) times a day. Active omega 7-xjk-mxt-fish oil Take 1 0 (FISH OIL) 100-160-1,000 capsule by mg capsule mouth nightly. Active polyethylene glycol Take 17 g by 0 (MIRALAX) 17 gram packet mouth daily as needed for constipation. Active rosuvastatin (CRESTOR) 20 Take 20 mg by 0 MG tablet mouth nightly. Active [id number]-VGZH Take 1 tablet 0 ORAL by mouth [...] coated tablet mouth daily. 03/29/2018 Discontinued omega 3-hsm-iqq-fish oil Take 1,000 mg 0 (FISH OIL) [...] [place] 07/19/2018 Refill Orthopedic Surgery Phyllis Denotn MA 07/19/2018 Refill Orthopedic Surgery Anant Singer [...] Maria A Daly MD Felan, Veronica Lynn, VACUUM FORMING MACHINE OPERATOR 02/25/2018 Anesthesia General Surgery Event Anant Singer MD Pseudarthrosis after fusion or arthrodesis 02/19/2018 Hospital Neurology Encounter Anant Singer MD STAGE 1 L1-L2 L2-L3 ANTERIOR OSTEOTOMIES WITH 20 CAGE @L2- L3 AND 15 CAGE @ L1-L2 WITH ANTERIOR SPINAL FUSION WITH INSTRUMENTATION AND BMP 02/19/2018 Surgery General Surgery Les Hayes MD Felan, Veronica Lynn, VACUUM FORMING MACHINE OPERATOR 02/19/2018 Anesthesia General Surgery Event Anant Singer [...] Comments Vital Sign 138/85 04/02/2018 12:27 PM SIDING APPLICATOR Blood Pressure 95 04/02/2018 12:27 PM SIDING APPLICATOR Pulse 36.8 C (98.2 F) 04/02/2018 12:27 PM SIDING APPLICATOR Temperature 18 04/02/2018 12:27 PM SIDING APPLICATOR Respiratory Rate 95% 04/02/2018 12:27 PM SIDING APPLICATOR Oxygen Saturation - - Inhaled Oxygen Concentration 83.9 kg (185 lb) 07/08/2018 9:38 AM CDT Weight 185.4 cm (6' 1") 07/08/2018 9:38 AM CDT Height 24.41 07/08/2018 9:38 AM CDT Body Mass Index Plan of Treatment Care Team Description Date Type Specialty Anant Singer MD [id number] [id number] Bonifacio Orr PAThalia [address] [id number] 02/23/2019 Office Visit Orthopedic Surgery Health Maintenance Due Date Last Done Comments COLONOSCOPY SCREENING 11/27/2001 SHINGLES VACCINES (#1) 11/27/2001 65+ PNEUMOCOCCAL VACCINE 11/27/2016 03/12/2015 (2 of 2 - PPSV23) INFLUENZA VACCINE 09/09/2018 12/03/2017, 12/10/2016, 01/09/2016, Additional history exists Implants Device Identifier Shelf Expiration Date Model / Serial / Lot Implanted Type Area RUST 07/10/2019 [id number] / / [id number] Kit Bone Grft Lmbr Tprd 8ml Xxl Human N/A: N/A MEDTRONIC Infuse - [id number] Tissue SPINAL AND Implanted: Qty: 1 on 02/19/2018 by Implants BIOLOGICS Anant Singer MD at [facility] 06/03/2020 [id number] / [id number] / LOT NA Chip Canc Allograft Leader [facility] Human N/A: N/A MUSCULOSKE 30cc 0.1-4mm - [id number] - Tissue LETAL [id number] Implants TRANSPLANT Implanted: Qty: 1 on 02/19/2018 by [facility] Anant Singer MD at [facility] 12/22/2020 [id number] / [id number] / LOT NA Chip Canc Allograft Leader [facility] Human N/A: N/A MUSCULOSKE 30cc 0.1-4mm - [id number] - Tissue LETAL [id number] Implants TRANSPLANT Implanted: Qty: 1 on 02/19/2018 by Anant Allen MD at [facility] 07/10/2019 [id number] / / [id number] Kit Bone Grft Lmbr Tprd 8ml Xxl Human N/A: Spine, MEDTRONIC Infuse - [id number] Tissue Multi-Level SPINAL AND Implanted: Qty: 1 on 02/25/2018 by Implants BIOLOGICS Anant Singer MD at [facility] 09/25/2020 [id number] / [id number] / LOT NA Chip Canc Allograft Leader [facility] Human N/A: Spine, MUSCULOSKE 30cc 0.1-4mm - [id number] - Tissue Multi-Level LETAL [id number] Implants TRANSPLANT Implanted: Qty: 1 on 02/25/2018 by [facility] Anant Singer MD at [facility] 12/22/2020 [id number] / [id number] / LOT NA Chip Canc Allograft Leader [facility] Human N/A: Spine, MUSCULOSKE 30cc 0.1-4mm - [id number] - Tissue Multi-Level LETAL [id number] Implants TRANSPLANT Implanted: Qty: 1 on 02/25/2018 by [facility] Anant Singer MD at [facility] 09/25/2020 [id number] / [id number] / LOT NA Chip Canc Allograft Leader [facility] Human N/A: Spine, MUSCULOSKE 30cc 0.1-4mm - [id number] - Tissue Multi-Level LETAL [id number] Implants TRANSPLANT Implanted: Qty: 1 on 02/25/2018 by [facility] Anant Singer MD at [facility] 10/09/2020 [id number] / / [id number] Matrix Dural Duragen Plus 1x3in Human N/A: N/A INTEGRA Regnrtn - [id number] Tissue LIFESCIENC Implanted: Qty: 1 on 02/25/2018 by Implants E NEURO Anant Singer MD at [facility] 01/20/2021 [id number] / [id number] / [id number] Chip Canc Allograft Leader Crs Human N/A: N/A MUSCULOSKE 30cc 0.1-4mm - [id number] - Tissue LETAL [id number] Implants TRANSPLANT Implanted: Qty: 1 on 03/01/2018 by [facility] Anant Singer MD at [facility] 01/20/2021 [id number] / [id number] / LOT NA Chip Canc Allograft Leader Crs Human N/A: N/A MUSCULOSKE 30cc 0.1-4mm - [id number] - Tissue LETAL [id number] Implants TRANSPLANT Implanted: Qty: 1 on 03/01/2018 by Anant Allen MD at [facility] 01/20/2021 [id number] / [id number] / LOT NA Chip Canc Allograft Leader Crs Human N/A: N/A MUSCULOSKE 30cc 0.1-4mm - [id number] - Tissue LETAL [id number] Implants TRANSPLANT Implanted: Qty: 1 on 03/01/2018 by Anant Allen MD at [facility] 04/09/2019 [id number] / / [id number] Kit Bone Grft Lmbr Tprd 5.6ml Med Human N/A: N/A MEDTRONIC Infuse - [id number] Tissue SPINAL AND Implanted: Qty: 1 on 03/01/2018 by Implants BIOLOGICS Anant Singer MD at [facility] [id number] / / Valente Glaser Md 14mm 20 Deg - IPM N/A: N/A DEPUY [id number] IMPLANT SYNTHES Implanted: Qty: 1 on 02/19/2018 by DEVICES SPINE Anant Singer MD at [facility] [id number] / / Valente Lucio [id number] 15-Deg Lord - IPM N/A: N/A DEPUY [id number] IMPLANT SYNTHES Implanted: Qty: 1 on 02/19/2018 by DEVICES SPINE Anant Singer MD at [facility] [id number] / / Expedium 6.35 Ti, Poly Screw 6 X IPM N/A: Spine, DEPUY 30mm - [id number] IMPLANT Multi-Level SYNTHES Implanted: 02/25/2018 at [facility] DEVICES [facility] (Quantity not on file) [id number] / / Expedium 6.35 Ti, Poly Screw 6 X IPM N/A: Spine, DEPUY 45mm - [id number] IMPLANT Multi-Level SYNTHES Implanted: 02/25/2018 at [facility] (Quantity not on file) [id number] / / Expedium 6.35 Ti, Poly Screw 6 X IPM N/A: Spine, DEPUY 50mm - [id number] IMPLANT Multi-Level SYNTHES Implanted: 02/25/2018 at [facility] (Quantity not on file) [id number] / / Expedium 6.35 Ti, Poly Screw 7 X IPM N/A: Spine, DEPUY 50mm - [id number] IMPLANT Multi-Level SYNTHES Implanted: 02/25/2018 at [facility] (Quantity not on file) [id number] / / Expedium 6.35 Ti, Poly Screw 8 X IPM N/A: Spine, DEPUY 50mm - [id number] IMPLANT Multi-Level SYNTHES Implanted: 02/25/2018 at [facility] (Quantity not on file) [id number] / / Expedium Plus Ti, Eleuterio, Str, Ti, IPM N/A: Spine, DEPUY 450mm (Hx End) - [id number] IMPLANT Multi-Level SYNTHES Implanted: 02/25/2018 at [facility] (Quantity not on file) [id number] / / Expedium Plus Ti, Eleuterio, Str, Ti, IPM N/A: Spine, DEPUY 450mm (Hx End) - [id number] IMPLANT Multi-Level SYNTHES Implanted: 02/25/2018 at [facility] (Quantity not on file) [id number] / / Expedium Plus Ti, Open/Cls Sd X Sd IPM N/A: Spine, DEPUY Con 635/635 Ti - [id number] IMPLANT Multi-Level SYNTHES Implanted: 02/25/2018 at [facility] (Quantity not on file) [id number] / / Synmesh 15mm Heaven 88mm Height (Ti) - IPM N/A: N/A SYNTHES (00) Synmesh IMPLANT SPINE - [id number] DEVICES Implanted: Qty: 2 on 03/01/2018 by Anant Singer MD at [facility] [id number] / / Expedium Anterior, [place] Screw 6 X IPM N/A: N/A DEPUY 55mm - [id number] IMPLANT SYNTHES Implanted: Qty: 2 on 03/01/2018 by DEVICES SPINE Anant Singer MD at [facility] [id number] / / Expedium Anterior, Pre-Cut 5.50 X IPM N/A: N/A DEPUY 95mm Eleuterio - [id number] IMPLANT SYNTHES Implanted: Qty: 1 on 03/01/2018 by DEVICES SPINE Anant Singer MD at [facility] [id number] / / Expedium Anterior, [place] Screw 6 X IPM N/A: N/A DEPUY 55mm - [id number] IMPLANT SYNTHES Implanted: Qty: 2 on 03/01/2018 by DEVICES SPINE Anant Singer MD at [facility] [id number] / / Expedium Anterior, Pre-Cut 5.50 X IPM N/A: N/A DEPUY 95mm Eleuterio - [id number] IMPLANT SYNTHES Implanted: 03/01/2018 at [facility]ICES [facility] (Quantity not on file) [id number] / / Synmesh 15mm Heaven 88mm Height (Ti) - IPM N/A: N/A SYNTHES (00) Synmesh IMPLANT SPINE - [id number] DEVICES Implanted: Qty: 2 on 03/01/2018 by Anant Singer MD at [facility] [id number] / / Screw Spinal Set Si Ti 6.35mm Spinal N/A: Spine, DEPUY Expedium - [id number] Implants Multi-Level SPINE Implanted: 02/25/2018 at [facility] (Quantity not on file) [id number] / / Screw Spinal Set Si Ti 6.35mm Spinal N/A: Spine, DEPUY Expedium - [id number] Implants Multi-Level SPINE Implanted: 02/25/2018 at [facility] (Quantity not on file) [id number] / / Screw Set Ant - [id number] Spinal N/A: N/A DEPUY Implanted: 03/01/2018 at [facility] (Quantity not on file) [id number] / / Screw Set Ant - [id number] Spinal N/A: N/A DEPUY Implanted: 03/01/2018 at [facility] (Quantity not on file) 04/09/2019 [id number] / / [id number] Kit Selnt Fibrin Humn Hms Surgy Surgical N/A: N/A ETHICON 5ml Evicel - [id number] Implants; US- Implanted: 02/25/2018 at [facility] Expanders; HOSPITAL (Quantity not on file) Extenders; Surgical Wires Device Identifier Shelf Expiration Date Model / Serial / Lot Explanted Type Area Manufactur er [id number] / / Expedium 6.35 Ti, Poly Screw 6 X IPM N/A: N/A DEPUY 50mm - [id number] IMPLANT SYNTHES Implanted: 02/25/2018 (Quantity not DEVICES SPINE on file) Explanted: 02/25/2018 at [facility] (Quantity not on file) [...] 1 VW PORTABLE Routine 04/02/2018 8:42 AM SIDING APPLICATOR ESTIMATED GFR Routine 04/02/2018 4:00 AM SIDING APPLICATOR PHOSPHORUS LEVEL Routine 04/02/2018 4:00 AM SIDING APPLICATOR MAGNESIUM LEVEL Routine 04/02/2018 4:00 AM SIDING APPLICATOR BASIC METABOLIC PANEL Routine 04/02/2018 4:00 AM SIDING APPLICATOR HC COMPLETE BLD COUNT Routine 04/02/2018 W/AUTO DIFF 3:47 AM SIDING APPLICATOR CYTOLOGY Routine 03/31/2018 (NON-GYNECOLOGICAL) 1:06 PM SIDING APPLICATOR REQUEST XR CHEST 1 VW Routine 03/31/2018 10:58 AM SIDING APPLICATOR US THORACENTESIS WITH Today 03/31/2018 IMAGING 10:49 AM SIDING APPLICATOR BODY FLUID CONSULT Routine 03/31/2018 10:16 AM SIDING APPLICATOR PROTEIN, MISC FLUID Routine 03/31/2018 10:16 AM SIDING APPLICATOR LDH, MISC FLUID Routine 03/31/2018 10:16 AM SIDING APPLICATOR GLUCOSE LEVEL, MISC FLUID Routine 03/31/2018 10:16 AM SIDING APPLICATOR CELL COUNT AND Routine 03/31/2018 DIFFERENTIAL, BODY FLUID 10:16 AM SIDING APPLICATOR AFB STAIN Routine 03/31/2018 10:16 AM SIDING APPLICATOR GRAM STAIN Routine 03/31/2018 10:16 AM SIDING APPLICATOR ANAEROBIC CULTURE Routine 03/31/2018 10:16 AM SIDING APPLICATOR AEROBIC CULTURE Routine 03/31/2018 10:16 AM SIDING APPLICATOR AFB CULTURE Routine 03/31/2018 9:16 AM SIDING APPLICATOR ESTIMATED GFR Routine 03/31/2018 4:38 AM SIDING APPLICATOR HC COMPLETE BLD COUNT Routine 03/31/2018 W/AUTO DIFF 4:38 AM SIDING APPLICATOR PHOSPHORUS LEVEL Routine 03/31/2018 4:38 AM SIDING APPLICATOR MAGNESIUM LEVEL Routine 03/31/2018 4:38 AM SIDING APPLICATOR BASIC METABOLIC PANEL Routine 03/31/2018 4:[address] ANGIOGRAM ABDOMEN W WO STAT 03/30/2018 CONTRAST 10:19 PM SIDING APPLICATOR POC GLUCOSE Routine 03/30/2018 10:17 AM SIDING APPLICATOR LACTIC ACID LEVEL Routine 03/30/2018 4:00 AM SIDING APPLICATOR TROPONIN Routine 03/30/2018 4:00 AM SIDING APPLICATOR ESTIMATED GFR Routine 03/30/2018 4:00 AM SIDING APPLICATOR HEPATIC FUNCTION PANEL Routine 03/30/2018 4:00 AM SIDING APPLICATOR LDH Routine 03/30/2018 4:00 AM SIDING APPLICATOR PHOSPHORUS LEVEL Routine 03/30/2018 4:00 AM SIDING APPLICATOR MAGNESIUM LEVEL Routine 03/30/2018 4:00 AM SIDING APPLICATOR BASIC METABOLIC PANEL Routine 03/30/2018 4:00 AM SIDING APPLICATOR TROPONIN Timed 03/29/2018 9:28 PM SIDING APPLICATOR LACTIC ACID LEVEL, SEPSIS Timed 03/29/2018 - NOW AND REPEAT 2X EVERY 9:28 PM SIDING APPLICATOR [address] ANGIOGRAM PE CHEST STAT 03/29/2018 8:11 PM SIDING APPLICATOR ESTIMATED GFR STAT 03/29/2018 5:06 PM SIDING APPLICATOR B NATRIURETIC PEPTIDE STAT 03/29/2018 5:06 PM SIDING APPLICATOR TROPONIN STAT 03/29/2018 5:06 PM SIDING APPLICATOR CREATINE KINASE, TOTAL STAT 03/29/2018 (CPK) 5:06 PM SIDING APPLICATOR LACTIC ACID LEVEL, SEPSIS STAT 03/29/2018 - NOW AND REPEAT 2X EVERY 5:06 PM SIDING APPLICATOR 3 HOURS COMPREHENSIVE METABOLIC STAT 03/29/2018 PANEL 5:06 PM SIDING APPLICATOR PARTIAL THROMBOPLASTIN STAT 03/29/2018 TIME (PTT) 5:06 PM SIDING APPLICATOR PROTHROMBIN TIME WITH INR STAT 03/29/2018 5:06 PM SIDING APPLICATOR HC COMPLETE BLD COUNT STAT 03/29/2018 W/AUTO DIFF 5:06 PM SIDING APPLICATOR ECG ED PRELIMINARY Routine 03/29/2018 INTERPRETATION 3:31 PM SIDING APPLICATOR ECG 12-LEAD STAT 03/29/2018 3:17 PM SIDING APPLICATOR XR SPINE SCOLIOSIS 2-3 Routine 03/24/2018 Pseudarthrosis following VIEWS 11:36 AM SIDING APPLICATOR spinal fusion XR SPINE SCOLIOSIS 2-3 STAT 03/08/2018 VIEWS 4:32 PM SIDING APPLICATOR US DUPLEX VENOUS LOWER Routine 03/07/2018 EXTREMITY BILATERAL 11:36 AM SIDING APPLICATOR THYROID STIMULATING Routine 03/07/2018 HORMONE 4:00 AM SIDING APPLICATOR ECHOCARDIOGRAM 2D Routine 03/05/2018 COMPLETE W MMODE SPECTRAL 10:16 AM SIDING APPLICATOR COLOR DOPPLER ([id number]) CT CHEST WO CONTRAST Routine 03/05/2018 9:35 AM SIDING APPLICATOR B NATRIURETIC PEPTIDE Routine 03/05/2018 3:40 AM SIDING APPLICATOR HC COMPLETE BLD COUNT Routine 03/05/2018 W/AUTO DIFF 3:40 AM SIDING APPLICATOR TROPONIN Routine 03/04/2018 4:00 PM SIDING APPLICATOR POC GLUCOSE Routine 03/04/2018 12:14 PM SIDING APPLICATOR ARTERIAL BLOOD GAS Routine 03/04/2018 11:39 AM SIDING APPLICATOR POC GLUCOSE Routine 03/04/2018 8:13 AM SIDING APPLICATOR XR CHEST 1 VW PORTABLE STAT 03/04/2018 7:06 AM SIDING APPLICATOR POC GLUCOSE Routine 03/04/2018 12:36 AM SIDING APPLICATOR IONIZED CALCIUM, ARTERIAL Routine 03/04/2018 12:30 AM SIDING APPLICATOR ARTERIAL BLOOD GAS Routine 03/04/2018 12:30 AM SIDING APPLICATOR FIBRINOGEN Routine 03/04/2018 12:30 AM SIDING APPLICATOR PROTHROMBIN TIME WITH INR Routine 03/04/2018 12:30 AM SIDING APPLICATOR PARTIAL THROMBOPLASTIN Routine 03/04/2018 TIME (PTT) 12:30 AM SIDING APPLICATOR ESTIMATED GFR Routine 03/04/2018 12:30 AM SIDING APPLICATOR PHOSPHORUS LEVEL Routine 03/04/2018 12:30 AM SIDING APPLICATOR MAGNESIUM LEVEL Routine 03/04/2018 12:30 AM SIDING APPLICATOR HC COMPLETE BLD COUNT Routine 03/04/2018 W/AUTO DIFF 12:30 AM SIDING APPLICATOR BASIC METABOLIC PANEL Routine 03/04/2018 12:30 AM SIDING APPLICATOR XR CHEST 1 VW PORTABLE Routine 03/03/2018 10:05 PM SIDING APPLICATOR POC GLUCOSE Routine 03/03/2018 8:30 PM SIDING APPLICATOR POC GLUCOSE Routine 03/03/2018 3:50 PM SIDING APPLICATOR POC GLUCOSE Routine 03/03/2018 12:45 PM SIDING APPLICATOR POC GLUCOSE Routine 03/03/2018 8:33 AM SIDING APPLICATOR POC GLUCOSE Routine 03/03/2018 5:29 AM SIDING APPLICATOR ESTIMATED GFR Routine 03/03/2018 2:56 AM SIDING APPLICATOR PHOSPHORUS LEVEL Routine 03/03/2018 2:56 AM SIDING APPLICATOR MAGNESIUM LEVEL Routine 03/03/2018 2:56 AM SIDING APPLICATOR HC COMPLETE BLD COUNT Routine 03/03/2018 W/AUTO DIFF 2:56 AM SIDING APPLICATOR BASIC METABOLIC PANEL Routine 03/03/2018 2:56 AM SIDING APPLICATOR POC GLUCOSE Routine 03/03/2018 12:23 AM SIDING APPLICATOR POC GLUCOSE Routine 03/02/2018 8:29 PM SIDING APPLICATOR POC GLUCOSE Routine 03/02/2018 4:07 PM SIDING APPLICATOR HC COMPLETE BLD COUNT Routine 03/02/2018 W/AUTO DIFF 1:20 PM SIDING APPLICATOR POC GLUCOSE Routine 03/02/2018 11:52 AM SIDING APPLICATOR POC GLUCOSE Routine 03/02/2018 8:18 AM SIDING APPLICATOR XR CHEST 1 VW PORTABLE Routine 03/02/2018 6:48 AM SIDING APPLICATOR ESTIMATED GFR Routine 03/02/2018 1:59 AM SIDING APPLICATOR LACTIC ACID LEVEL Routine 03/02/2018 1:59 AM SIDING APPLICATOR PHOSPHORUS LEVEL Routine 03/02/2018 1:59 AM SIDING APPLICATOR MAGNESIUM LEVEL Routine 03/02/2018 1:59 AM SIDING APPLICATOR COMPREHENSIVE METABOLIC Routine 03/02/2018 PANEL 1:59 AM SIDING APPLICATOR IONIZED CALCIUM, ARTERIAL Routine 03/02/2018 1:25 AM SIDING APPLICATOR PROTHROMBIN TIME WITH INR Routine 03/02/2018 1:25 AM SIDING APPLICATOR PARTIAL THROMBOPLASTIN Routine 03/02/2018 TIME (PTT) 1:25 AM SIDING APPLICATOR HC COMPLETE BLD COUNT Routine 03/02/2018 W/AUTO DIFF 1:25 AM SIDING APPLICATOR ARTERIAL BLOOD GAS Routine 03/02/2018 1:25 AM SIDING APPLICATOR TRANSFUSE FRESH FROZEN STAT 03/01/2018 PLASMA 5:21 PM SIDING APPLICATOR ARTERIAL BLOOD GAS Routine 03/01/2018 5:17 PM SIDING APPLICATOR HC COMPLETE BLD COUNT Routine 03/01/2018 W/AUTO DIFF 5:17 PM SIDING APPLICATOR TRANSFUSE FRESH FROZEN STAT 03/01/2018 PLASMA 4:34 PM SIDING APPLICATOR TRANSFUSE PLATELET STAT 03/01/2018 PHERESIS 3:58 PM SIDING APPLICATOR POC GLUCOSE Routine 03/01/2018 3:48 PM SIDING APPLICATOR SURGICAL PATHOLOGY Routine 03/01/2018 REQUEST 3:10 PM SIDING APPLICATOR ESTIMATED GFR Routine 03/01/2018 2:25 PM SIDING APPLICATOR LACTIC ACID LEVEL Routine 03/01/2018 2:25 PM SIDING APPLICATOR PHOSPHORUS LEVEL Routine 03/01/2018 2:25 PM SIDING APPLICATOR MAGNESIUM LEVEL Routine 03/01/2018 2:25 PM SIDING APPLICATOR BASIC METABOLIC PANEL Routine 03/01/2018 2:25 PM SIDING APPLICATOR INTRAOPERATIVE MONITORING Routine 03/01/2018 1:25 PM SIDING APPLICATOR TRANSFUSE RED BLOOD CELLS Routine 03/01/2018 1:17 PM SIDING APPLICATOR OR FL > 1 HOUR Routine 03/01/2018 1:06 PM SIDING APPLICATOR TRANSFUSE RED BLOOD CELLS Routine 03/01/2018 1:00 PM SIDING APPLICATOR MAGNESIUM LEVEL STAT 03/01/2018 12:11 PM SIDING APPLICATOR LACTIC ACID, SYRINGE STAT 03/01/2018 12:11 PM SIDING APPLICATOR GLUCOSE LEVEL, SYRINGE STAT 03/01/2018 12:11 PM SIDING APPLICATOR IONIZED CALCIUM, ARTERIAL STAT 03/01/2018 12:11 PM SIDING APPLICATOR HEMOGLOBIN, SYRINGE STAT 03/01/2018 12:11 PM SIDING APPLICATOR SODIUM LEVEL, SYRINGE STAT 03/01/2018 12:11 PM SIDING APPLICATOR POTASSIUM, SYRINGE STAT 03/01/2018 12:11 PM SIDING APPLICATOR ARTERIAL BLOOD GAS, STAT 03/01/2018 CORRECTED 12:11 PM SIDING APPLICATOR TRANSFUSE RED BLOOD CELLS Routine 03/01/2018 11:54 AM SIDING APPLICATOR TRANSFUSE RED BLOOD CELLS Routine 03/01/2018 11:26 AM SIDING APPLICATOR MAGNESIUM LEVEL STAT 03/01/2018 10:45 AM SIDING APPLICATOR LACTIC ACID, SYRINGE STAT 03/01/2018 10:45 AM SIDING APPLICATOR GLUCOSE LEVEL, SYRINGE STAT 03/01/2018 10:45 AM SIDING APPLICATOR IONIZED CALCIUM, ARTERIAL STAT 03/01/2018 10:45 AM SIDING APPLICATOR POTASSIUM, SYRINGE STAT 03/01/2018 10:45 AM SIDING APPLICATOR SODIUM LEVEL, SYRINGE STAT 03/01/2018 10:45 AM SIDING APPLICATOR HEMOGLOBIN, SYRINGE STAT 03/01/2018 10:45 AM SIDING APPLICATOR ARTERIAL BLOOD GAS, STAT 03/01/2018 CORRECTED 10:45 AM SIDING APPLICATOR MT AN ELECTIVE Routine 03/01/2018 ENDOTRACHEAL AIRWAY 10:09 AM SIDING APPLICATOR Procedure Note - Deepa Kaplan CRNA - 03/01/2018 10:09 AM SIDING APPLICATOR ANESTHESIA INTUBATION Date/Time: 03/01/2018 10:09 AM Performed [...] by ER resident, DL x 2 by LABEL DRIER grade II1. Both attempts atraumatic . Lips and teeth unchanged from preop FUSION, ANTERIOR SPINAL 03/01/2018 Pseudarthrosis following COLUMN, LUMBAR, ANTERIOR 9:00 AM SIDING APPLICATOR spinal fusion APPROACH Case Notes POSTED VIA DEPOT/NOE VIEIRA @ 0139 02/26/18TW, RESIDENT (EZEQUIEL AMIN) TO PROVIDE ANTERIOR EXPOSURE PHYSICIAN, SSEP'S WITH MOTORS, @[phone] BONILLA WILL BE THE ANTERIOR EXPOSURE PHYSICIAN 02/26/18RUT CHENG CONFIRMED DR BONILLA SU L@ 1624 ON 02/26 [facility] Special Needs EST 2HRS, DR BONILLA ANTERIOR EXPOSURE PHYSICIAN, SSEP'S WITH MOTORS POC GLUCOSE Routine 03/01/2018 7:43 AM SIDING APPLICATOR PREPARE FRESH FROZEN Routine 03/01/2018 PLASMA 12:20 AM SIDING APPLICATOR PREPARE PLATELET PHERESIS Routine 03/01/2018 12:20 AM SIDING APPLICATOR PREPARE RBC Routine 03/01/2018 12:20 AM SIDING APPLICATOR ESTIMATED GFR Routine 03/01/2018 12:20 AM SIDING APPLICATOR IONIZED CALCIUM, ARTERIAL Routine 03/01/2018 12:20 AM SIDING APPLICATOR TYPE AND SCREEN Routine 03/01/2018 12:20 AM SIDING APPLICATOR PARTIAL THROMBOPLASTIN Routine 03/01/2018 TIME (PTT) 12:20 AM SIDING APPLICATOR PROTHROMBIN TIME WITH INR Routine 03/01/2018 12:20 AM SIDING APPLICATOR HC COMPLETE BLD COUNT Routine 03/01/2018 W/AUTO DIFF 12:20 AM SIDING APPLICATOR ARTERIAL BLOOD GAS Routine 03/01/2018 12:20 AM SIDING APPLICATOR PHOSPHORUS LEVEL Routine 03/01/2018 12:20 AM SIDING APPLICATOR MAGNESIUM LEVEL Routine 03/01/2018 12:20 AM SIDING APPLICATOR COMPREHENSIVE METABOLIC Routine 03/01/2018 PANEL 12:20 AM SIDING APPLICATOR POC GLUCOSE Routine 02/28/2018 8:34 PM SIDING APPLICATOR US DUPLEX VENOUS LOWER STAT 02/28/2018 EXTREMITY BILATERAL 8:10 PM SIDING APPLICATOR CBC HEMOGRAM Routine 02/28/2018 4:10 PM SIDING APPLICATOR POC GLUCOSE Routine 02/28/2018 3:[address] LUMBAR SPINE WO STAT 02/28/2018 CONTRAST 2:[address] THORACIC SPINE WO STAT 02/28/2018 CONTRAST 2:55 PM SIDING APPLICATOR TRANSFUSE RED BLOOD CELLS STAT 02/28/2018 11:54 AM SIDING APPLICATOR POC GLUCOSE Routine 02/28/2018 11:10 AM SIDING APPLICATOR TRANSFUSE RED BLOOD CELLS STAT 02/28/2018 10:32 AM SIDING APPLICATOR POC GLUCOSE Routine 02/28/2018 7:03 AM SIDING APPLICATOR XR CHEST 1 VW PORTABLE Routine 02/28/2018 5:57 AM SIDING APPLICATOR ESTIMATED GFR Routine 02/28/2018 1:54 AM SIDING APPLICATOR PHOSPHORUS LEVEL Routine 02/28/2018 1:54 AM SIDING APPLICATOR MAGNESIUM LEVEL Routine 02/28/2018 1:54 AM SIDING APPLICATOR IONIZED CALCIUM Routine 02/28/2018 1:54 AM SIDING APPLICATOR COMPREHENSIVE METABOLIC Routine 02/28/2018 PANEL 1:54 AM SIDING APPLICATOR HC COMPLETE BLD COUNT Routine 02/28/2018 W/AUTO DIFF 1:30 AM SIDING APPLICATOR POC GLUCOSE Routine 02/28/2018 12:54 AM SIDING APPLICATOR POC GLUCOSE Routine 02/27/2018 8:56 PM SIDING APPLICATOR CBC HEMOGRAM Routine 02/27/2018 7:30 PM SIDING APPLICATOR POC GLUCOSE Routine 02/27/2018 3:45 PM SIDING APPLICATOR CBC HEMOGRAM Routine 02/27/2018 2:02 PM SIDING APPLICATOR POC GLUCOSE Routine 02/27/2018 11:15 AM SIDING APPLICATOR TRANSFUSE RED BLOOD CELLS Routine 02/27/2018 8:43 AM SIDING APPLICATOR POC GLUCOSE Routine 02/27/2018 7:14 AM SIDING APPLICATOR POC GLUCOSE Routine 02/27/2018 5:08 AM SIDING APPLICATOR POC GLUCOSE Routine 02/27/2018 12:05 AM SIDING APPLICATOR IONIZED CALCIUM Routine 02/27/2018 12:01 AM SIDING APPLICATOR LACTIC ACID LEVEL Routine 02/27/2018 12:01 AM SIDING APPLICATOR ESTIMATED GFR Routine 02/27/2018 12:01 AM SIDING APPLICATOR PROTHROMBIN TIME WITH INR Routine 02/27/2018 12:01 AM SIDING APPLICATOR PHOSPHORUS LEVEL Routine 02/27/2018 12:01 AM SIDING APPLICATOR MAGNESIUM LEVEL Routine 02/27/2018 12:01 AM SIDING APPLICATOR HC COMPLETE BLD COUNT Routine 02/27/2018 W/AUTO DIFF 12:01 AM SIDING APPLICATOR BASIC METABOLIC PANEL Routine 02/27/2018 12:01 AM SIDING APPLICATOR CBC HEMOGRAM Timed 02/26/2018 7:27 PM SIDING APPLICATOR POC GLUCOSE Routine 02/26/2018 7:19 PM SIDING APPLICATOR POC GLUCOSE Routine 02/26/2018 4:10 PM SIDING APPLICATOR ESTIMATED GFR STAT 02/26/2018 3:13 PM SIDING APPLICATOR BASIC METABOLIC PANEL STAT 02/26/2018 3:13 PM SIDING APPLICATOR PROTHROMBIN TIME WITH INR STAT 02/26/2018 3:13 PM SIDING APPLICATOR PHOSPHORUS LEVEL STAT 02/26/2018 3:13 PM SIDING APPLICATOR PARTIAL THROMBOPLASTIN STAT 02/26/2018 TIME (PTT) 3:13 PM SIDING APPLICATOR MAGNESIUM LEVEL STAT 02/26/2018 3:13 PM SIDING APPLICATOR LDH STAT 02/26/2018 3:13 PM SIDING APPLICATOR LACTIC ACID LEVEL STAT 02/26/2018 3:13 PM SIDING APPLICATOR IONIZED CALCIUM STAT 02/26/2018 3:13 PM SIDING APPLICATOR HC COMPLETE BLD COUNT STAT 02/26/2018 W/AUTO DIFF 3:13 PM SIDING APPLICATOR INTRAOPERATIVE MONITORING Routine 02/26/2018 Pseudarthrosis after 3:05 PM SIDING APPLICATOR fusion or arthrodesis TRANSFUSE RED BLOOD CELLS Routine 02/26/2018 11:12 AM SIDING APPLICATOR HC COMPLETE BLD COUNT STAT 02/26/2018 W/AUTO DIFF 7:06 AM SIDING APPLICATOR ESTIMATED GFR Routine 02/25/2018 7:12 PM SIDING APPLICATOR HEMOGLOBIN & HEMATOCRIT Routine 02/25/2018 7:12 PM SIDING APPLICATOR COMPREHENSIVE METABOLIC Routine 02/25/2018 PANEL 7:12 PM SIDING APPLICATOR POC GLUCOSE Routine 02/25/2018 6:11 PM SIDING APPLICATOR ESTIMATED GFR Routine 02/25/2018 4:15 PM SIDING APPLICATOR PHOSPHORUS LEVEL Routine 02/25/2018 4:15 PM SIDING APPLICATOR MAGNESIUM LEVEL Routine 02/25/2018 4:15 PM SIDING APPLICATOR HC COMPLETE BLD COUNT Routine 02/25/2018 W/AUTO DIFF 4:15 PM SIDING APPLICATOR BASIC METABOLIC PANEL Routine 02/25/2018 4:15 PM SIDING APPLICATOR XR CHEST 1 VW PORTABLE STAT 02/25/2018 3:43 PM SIDING APPLICATOR TRANSFUSE PLATELET Routine 02/25/2018 PHERESIS 2:38 PM SIDING APPLICATOR PROTHROMBIN TIME WITH INR STAT 02/25/2018 2:13 PM SIDING APPLICATOR FIBRINOGEN STAT 02/25/2018 2:13 PM SIDING APPLICATOR CBC HEMOGRAM STAT 02/25/2018 2:13 PM SIDING APPLICATOR TRANSFUSE FRESH FROZEN Routine 02/25/2018 PLASMA 2:02 PM SIDING APPLICATOR SURGICAL PATHOLOGY Routine 02/25/2018 REQUEST 1:44 PM SIDING APPLICATOR LACTIC ACID, SYRINGE STAT 02/25/2018 1:31 PM SIDING APPLICATOR GLUCOSE LEVEL, SYRINGE STAT 02/25/2018 1:31 PM SIDING APPLICATOR MAGNESIUM LEVEL STAT 02/25/2018 1:31 PM SIDING APPLICATOR HEMOGLOBIN, SYRINGE STAT 02/25/2018 1:31 PM SIDING APPLICATOR IONIZED CALCIUM, ARTERIAL STAT 02/25/2018 1:31 PM SIDING APPLICATOR SODIUM LEVEL, SYRINGE STAT 02/25/2018 1:31 PM SIDING APPLICATOR POTASSIUM, SYRINGE STAT 02/25/2018 1:31 PM SIDING APPLICATOR ARTERIAL BLOOD GAS STAT 02/25/2018 1:31 PM SIDING APPLICATOR OR FL > 1 HOUR Routine 02/25/2018 1:30 PM SIDING APPLICATOR XR LUMBAR SPINE 1 VW Routine 02/25/2018 1:30 PM SIDING APPLICATOR GRAM STAIN Routine 02/25/2018 12:37 PM SIDING APPLICATOR URINE CULTURE Routine 02/25/2018 12:37 PM SIDING APPLICATOR LACTIC ACID, SYRINGE STAT 02/25/2018 12:26 PM SIDING APPLICATOR MAGNESIUM LEVEL STAT 02/25/2018 12:26 PM SIDING APPLICATOR GLUCOSE LEVEL, SYRINGE STAT 02/25/2018 12:26 PM SIDING APPLICATOR IONIZED CALCIUM, ARTERIAL STAT 02/25/2018 12:26 PM SIDING APPLICATOR HEMOGLOBIN, SYRINGE STAT 02/25/2018 12:26 PM SIDING APPLICATOR SODIUM LEVEL, SYRINGE STAT 02/25/2018 12:26 PM SIDING APPLICATOR POTASSIUM, SYRINGE STAT 02/25/2018 12:26 PM SIDING APPLICATOR ARTERIAL BLOOD GAS, STAT 02/25/2018 CORRECTED 12:26 PM SIDING APPLICATOR TRANSFUSE RED BLOOD CELLS Routine 02/25/2018 12:00 PM SIDING APPLICATOR TRANSFUSE RED BLOOD CELLS Routine 02/25/2018 11:01 AM SIDING APPLICATOR LACTIC ACID, SYRINGE STAT 02/25/2018 11:00 AM SIDING APPLICATOR MAGNESIUM LEVEL STAT 02/25/2018 11:00 AM SIDING APPLICATOR ARTERIAL BLOOD GAS, STAT 02/25/2018 CORRECTED 11:00 AM SIDING APPLICATOR POTASSIUM, SYRINGE STAT 02/25/2018 11:00 AM SIDING APPLICATOR SODIUM LEVEL, SYRINGE STAT 02/25/2018 11:00 AM SIDING APPLICATOR IONIZED CALCIUM, ARTERIAL STAT 02/25/2018 11:00 AM SIDING APPLICATOR HEMOGLOBIN, SYRINGE STAT 02/25/2018 11:00 AM SIDING APPLICATOR GLUCOSE LEVEL, SYRINGE STAT 02/25/2018 11:00 AM SIDING APPLICATOR XR LUMBAR SPINE 1 VW Routine 02/25/2018 10:57 AM SIDING APPLICATOR FUNGUS SMEAR Routine 02/25/2018 10:00 AM SIDING APPLICATOR AFB STAIN Routine 02/25/2018 10:00 AM SIDING APPLICATOR ANAEROBIC CULTURE Routine 02/25/2018 10:00 AM SIDING APPLICATOR FUNGUS CULTURE Routine 02/25/2018 10:00 AM SIDING APPLICATOR AFB CULTURE Routine 02/25/2018 10:00 AM SIDING APPLICATOR CENTRAL LINE Routine 02/25/2018 9:30 AM SIDING APPLICATOR Procedure Note - Maria A Daly MD - 02/25/2018 9:30 AM SIDING APPLICATOR Central line Performed by: Maria A Daly [...] n ARTERIAL LINE Routine 02/25/2018 9:25 AM SIDING APPLICATOR Procedure Note - Maria A Daly MD - 02/25/2018 9:25 AM SIDING APPLICATOR Arterial line Performed by: Maria A Daly [...] ons ANESTHESIA INTUBATION Routine 02/25/2018 9:19 AM SIDING APPLICATOR Procedure Note - Maria A Daly MD - 02/25/2018 9:19 AM SIDING APPLICATOR ANESTHESIA INTUBATION Date/Time: 02/25/2018 8:31 AM Performed [...] Pseudarthrosis following SPINAL COLUMN, LUMBAR, 7:23 AM SIDING APPLICATOR spinal fusion ANTERIOR AND POSTERIOR APPROACHES, W [...] HEMOVAC PREPARE RBC Routine 02/25/2018 4:06 AM SIDING APPLICATOR PREPARE RBC Routine 02/25/2018 4:06 AM SIDING APPLICATOR PREPARE RBC Routine 02/25/2018 4:06 AM SIDING APPLICATOR PREPARE PLATELET PHERESIS Routine 02/25/2018 4:06 AM SIDING APPLICATOR PREPARE FRESH FROZEN Routine 02/25/2018 PLASMA 4:06 AM SIDING APPLICATOR PREPARE RBC Routine 02/25/2018 4:06 AM SIDING APPLICATOR TYPE AND SCREEN Routine 02/25/2018 4:06 AM SIDING APPLICATOR HC COMPLETE BLD COUNT Routine 02/25/2018 W/AUTO DIFF 4:06 AM SIDING APPLICATOR PARTIAL THROMBOPLASTIN Routine 02/25/2018 TIME (PTT) 4:05 AM SIDING APPLICATOR PROTHROMBIN TIME WITH INR Routine 02/25/2018 4:05 AM SIDING APPLICATOR ESTIMATED GFR Routine 02/25/2018 4:00 AM SIDING APPLICATOR BASIC METABOLIC PANEL Routine 02/25/2018 4:00 AM SIDING APPLICATOR ESTIMATED GFR Routine 02/23/2018 4:00 AM SIDING APPLICATOR PHOSPHORUS LEVEL Routine 02/23/2018 4:00 AM SIDING APPLICATOR MAGNESIUM LEVEL Routine 02/23/2018 4:00 AM SIDING APPLICATOR BASIC METABOLIC PANEL Routine 02/23/2018 4:00 AM SIDING APPLICATOR HC COMPLETE BLD COUNT Routine 02/23/2018 W/AUTO DIFF 3:50 AM SIDING APPLICATOR XR CHEST 1 VW PORTABLE Today 02/22/2018 12:01 PM SIDING APPLICATOR URINALYSIS, AUTOMATED STAT 02/22/2018 WITH MICROSCOPY 11:34 AM SIDING APPLICATOR POC GLUCOSE Routine 02/20/2018 7:09 AM SIDING APPLICATOR CBC HEMOGRAM Routine 02/20/2018 4:35 AM SIDING APPLICATOR US DUPLEX VENOUS LOWER Routine 02/20/2018 EXTREMITY BILATERAL 4:30 AM SIDING APPLICATOR LACTIC ACID LEVEL STAT 02/19/2018 10:07 PM SIDING APPLICATOR HEMOGLOBIN & HEMATOCRIT Routine 02/19/2018 7:59 PM SIDING APPLICATOR POC GLUCOSE Routine 02/19/2018 6:53 PM SIDING APPLICATOR TRANSFUSE RED BLOOD CELLS STAT 02/19/2018 1:33 PM SIDING APPLICATOR XR ABDOMEN 1 VW PORTABLE STAT 02/19/2018 12:00 PM SIDING APPLICATOR XR CHEST 1 VW PORTABLE STAT 02/19/2018 12:00 PM SIDING APPLICATOR ESTIMATED GFR STAT 02/19/2018 11:36 AM SIDING APPLICATOR BASIC METABOLIC PANEL STAT 02/19/2018 11:36 AM SIDING APPLICATOR MAGNESIUM LEVEL STAT 02/19/2018 11:36 AM SIDING APPLICATOR LACTIC ACID LEVEL STAT 02/19/2018 11:36 AM SIDING APPLICATOR FIBRINOGEN STAT 02/19/2018 11:36 AM SIDING APPLICATOR PARTIAL THROMBOPLASTIN STAT 02/19/2018 TIME (PTT) 11:36 AM SIDING APPLICATOR PROTHROMBIN TIME WITH INR STAT 02/19/2018 11:36 AM SIDING APPLICATOR IONIZED CALCIUM STAT 02/19/2018 11:36 AM SIDING APPLICATOR ARTERIAL BLOOD GAS STAT 02/19/2018 11:36 AM SIDING APPLICATOR HC COMPLETE BLD COUNT STAT 02/19/2018 W/AUTO DIFF 11:33 AM SIDING APPLICATOR INTRAOPERATIVE MONITORING Routine 02/19/2018 Pseudarthrosis after 11:29 AM SIDING APPLICATOR fusion or arthrodesis SURGICAL PATHOLOGY Routine 02/19/2018 REQUEST 11:09 AM SIDING APPLICATOR OR FL > 1 HOUR Routine 02/19/2018 10:17 AM SIDING APPLICATOR MT AN ELECTIVE Routine 02/19/2018 ENDOTRACHEAL AIRWAY 9:06 AM SIDING APPLICATOR FUSION, ANT AND POST 02/19/2018 Pseudarthrosis following SPINAL COLUMN, LUMBAR, 7:28 AM SIDING APPLICATOR spinal fusion ANTERIOR AND POSTERIOR APPROACHES, W LUMBAR LAMINECTOMY Case Notes NO ANTERIOR EXPOSURE PHYSICIAN PER OFFICE Special Needs NO ANTERIOR EXPOSURE PHYSICIAN PER OFFICE, LATERAL POSITION, C-ARM, CELL SAVER, SSEP MOTORS, 90 CC ALLOGRAFT CANCELLOUS GRANULES, SUCTION BOVIE, AQUAMANTYS , DESIREE, CHERI SUCTION BOVIE, DEPUY PREPARE FRESH FROZEN Routine 02/12/2018 PLASMA 9:03 AM SIDING APPLICATOR PREPARE RBC Routine 02/12/2018 9:03 AM SIDING APPLICATOR PREPARE RBC Routine 02/12/2018 9:03 AM SIDING APPLICATOR TYPE AND SCREEN Routine 02/12/2018 Preop testing 9:03 AM SIDING APPLICATOR MRI THORACIC SPINE WO Routine 12/29/2017 Chronic low back pain CONTRAST 9:00 AM SIDING APPLICATOR without sciatica, unspecified back pain laterality 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 CT LUMBAR SPINE WO Routine 12/29/2017 Chronic low back pain CONTRAST 8:53 AM SIDING APPLICATOR without sciatica, unspecified back pain laterality 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 ECHOCARDIOGRAM 2D Routine 12/17/2017 COMPLETE W MMODE SPECTRAL 10:24 AM SIDING APPLICATOR COLOR DOPPLER ([id number]) US CAROTID DUPLEX Routine 12/17/2017 BILATERAL 9:42 AM SIDING APPLICATOR ESTIMATED GFR Routine 12/17/2017 4:16 AM SIDING APPLICATOR LIPID PANEL Routine 12/17/2017 4:16 AM SIDING APPLICATOR T4, FREE Routine 12/17/2017 4:16 AM SIDING APPLICATOR THYROID STIMULATING Routine 12/17/2017 HORMONE 4:16 AM SIDING APPLICATOR PHOSPHORUS LEVEL Routine 12/17/2017 4:16 AM SIDING APPLICATOR MAGNESIUM LEVEL Routine 12/17/2017 4:16 AM SIDING APPLICATOR BASIC METABOLIC PANEL Routine 12/17/2017 4:16 AM SIDING APPLICATOR CBC HEMOGRAM Routine 12/17/2017 4:16 AM SIDING APPLICATOR TROPONIN Routine 12/16/2017 11:54 PM SIDING APPLICATOR LACTIC ACID LEVEL Routine 12/16/2017 11:54 PM SIDING APPLICATOR EEG AWAKE/DROWSY LESS Routine 12/16/2017 THAN 41 MIN 9:29 PM SIDING APPLICATOR MRI BRAIN W WO CONTRAST Routine 12/16/2017 8:46 PM SIDING APPLICATOR URINALYSIS SCREEN AND Routine 12/16/2017 MICROSCOPY, WITH REFLEX 5:22 PM SIDING APPLICATOR TO CULTURE URINE CULTURE Routine 12/16/2017 5:20 PM SIDING APPLICATOR LACTIC ACID LEVEL, SEPSIS Timed 12/16/2017 - NOW AND REPEAT 2X EVERY 5:19 PM SIDING APPLICATOR 3 HOURS TROPONIN Timed 12/16/2017 5:19 PM SIDING APPLICATOR HEMOGLOBIN A1C Timed 12/16/2017 5:19 PM SIDING APPLICATOR ESTIMATED GFR STAT 12/16/2017 1:59 PM SIDING APPLICATOR B NATRIURETIC PEPTIDE STAT 12/16/2017 1:59 PM SIDING APPLICATOR TROPONIN STAT 12/16/2017 1:59 PM SIDING APPLICATOR CREATINE KINASE, TOTAL STAT 12/16/2017 (CPK) 1:59 PM SIDING APPLICATOR LIPASE LEVEL STAT 12/16/2017 1:59 PM SIDING APPLICATOR MAGNESIUM LEVEL STAT 12/16/2017 1:59 PM SIDING APPLICATOR LACTIC ACID LEVEL, SEPSIS STAT 12/16/2017 - NOW AND REPEAT 2X EVERY 1:59 PM SIDING APPLICATOR 3 HOURS COMPREHENSIVE METABOLIC STAT 12/16/2017 PANEL 1:59 PM SIDING APPLICATOR TYPE AND SCREEN Routine 12/16/2017 1:59 PM SIDING APPLICATOR PARTIAL THROMBOPLASTIN STAT 12/16/2017 TIME (PTT) 1:59 PM SIDING APPLICATOR PROTHROMBIN TIME WITH INR STAT 12/16/2017 1:59 PM SIDING APPLICATOR HC COMPLETE BLD COUNT STAT 12/16/2017 W/AUTO DIFF 1:59 PM SIDING APPLICATOR POC GLUCOSE Routine 12/16/2017 1:49 PM SIDING APPLICATOR ECG 12-LEAD STAT 12/16/2017 1:[address] SPINE EXTERNAL STUDY STAT 12/01/2017 12:34 [...] period is included. Specimen Narrative Performed At [facility] AP lateral scoliosis x-ray shows [...] Organization Address City/State/Zipcode Phone Number ROBERTO [address] [place] [address] * CT Abdomen WWO Contrast, Pelvis W Contrast (07/08/2018 12:07 PM CDT) Specimen Narrative Performed At EXAMINATION:CT ABDOMEN WWO CONTRAST PELVIS W CONTRAST [facility] CLINICAL HISTORY: 67 years Male R10.9 Unspecified [...] no evidence of pelvic mass. [facility]-[id number] Procedure Note [facility], Radiology Results Incoming - 07/08/2018 12:30 PM [...] no evidence of pelvic mass. [facility]-[id number] Performing Organization Address City/[facility]/Zipcode Phone Number [facility] [address] [place] [address] * Estimated GFR (07/08/2018 9:48 AM CDT) Only the most recent of 20 results within the time period is included. [facility] Estimated GFR >=90 mL/min/1.73 m2 [place] Comment: BUDDHISM [facility] rpretation G1 >=90 Normal or high G2 60-89Mildly decreased [id number] Mildly to moderately decreased [id number] Moderately to severely decreased G4 15-29Severely decreased G5 <15Kidney failure The eGFR was calculated using the Chronic Kidney Disease Epidemiology Collaboration (CKD-EPI) equation. Interpretation is based on recommendations of the National Kidney Foundation-Kidney Disease Outcomes Quality Initiative (NKF-KDOQI) published in 2014. Specimen Blood Performing Organization Address [facility] Phone Number [facility] DEPARTMENT OF [address] [place] [address] PATHOLOGY AND GENOMIC MEDICINE [address] * POC creatinine (07/08/2018 9:48 AM CDT) [facility] POC creatinine 0.9 0.7 - 1.2 mg/dl [place] Comment: BUDDHISM Meter ID: [id number] [facility]OSPITAL [employer] Tester: Bobby Acosta Specimen Blood Performing Organization Address [facility] Phone Number [facility] DEPARTMENT OF [address] [place] [address] PATHOLOGY AND GENOMIC MEDICINE [address] * XR Chest 1 Vw Portable (04/02/2018 8:42 AM SIDING APPLICATOR) Only the most recent of 8 results [...] Slight spinal fixators as before Single view [id number] Procedure Note Interface, Radiology Results Incoming - 04/02/2018 8:49 AM SIDING APPLICATOR EXAMINATION: XR CHEST 1 VW PORTABLE CLINICAL HISTORY: cough pleural effusion COMPARISON: March 31, 2018 chest IMPRESSION: Increasing patchy infiltrate left base. There is a small left pleural effusion as on previous. Developing mild central vascular prominence The Cardiomediastinal silhouette remains normal size. Underlying COPD Slight spinal fixators as before Single view [id number] Performing Organization Address City/[facility] Phone Number [facility] [address] [place] [address] * Phosphorus level (04/02/2018 4:00 AM SIDING APPLICATOR) Only the most recent of 14 results within the time period is included. Phosphorus 2.8 2.4 - 4.5 mg/dL [facility] Specimen Plasma specimen Performing Organization Address [facility] Phone Number [facility] DEPARTMENT OF [address] [place] [address] PATHOLOGY AND GENOMIC MEDICINE [address] * Magnesium level (04/02/2018 4:00 AM SIDING APPLICATOR) Only the most recent of 21 results within the time period is included. Magnesium 1.7 1.6 - 2.4 mg/dL [facility] Specimen Plasma specimen Performing Organization Address [facility] Phone Number [facility] DEPARTMENT OF [address] [place] [address] PATHOLOGY AND GENOMIC MEDICINE [address] * Basic metabolic panel (04/02/2018 4:00 AM SIDING APPLICATOR) Only the most recent of 13 results within the time period is included. Sodium 144 135 - 148 mEq/L [facility] Potassium 3.6 3.5 - 5.0 mEq/L [facility] Chloride 108 98 - 112 mEq/L [facility] CO2 26 24 - 31 mEq/L [facility] Anion gap 10@ANIO 7 - 15 mEq/L [facility] BUN 13 8 - 23 mg/dL [facility] Creatinine 0.74 0.70 - 1.20 mg/dL [facility] Glucose 91 65 - 99 mg/dL [facility] Calcium 8.9 8.8 - 10.2 mg/dL [facility] Specimen Plasma specimen Performing Organization Address City/[facility]/Zipcode Phone Number [facility] DEPARTMENT OF [address] [place] [id number] PATHOLOGY AND GENOMIC MEDICINE [address] * CBC with platelet and differential (04/02/2018 3:47 AM SIDING APPLICATOR) Only the most recent of 19 results within the time period is included. WBC 6.47 4.50 - 11.00 k/uL [facility] RBC 4.01 (L) 4.40 - 6.00 m/uL [facility] HGB 11.1 (L) 14.0 - 18.0 g/dL [facility] HCT 36.2 (L) 41.0 - 51.0 % [facility] MCV 90.3 82.0 - 100.0 fL [facility] MCH 27.7 27.0 - 34.0 pg [facility] MCHC 30.7 (L) 31.0 - 37.0 g/dL [facility] RDW - SD 46.3 37.0 - 55.0 fL [facility] MPV 9.4 8.8 - 13.2 fL [facility] Platelet count 215 150 - 400 k/uL [facility] Nucleated RBC 0.00 /100 WBC [facility] Neutrophils 59.1 39.0 - 69.0 % [facility] Lymphocytes 29.8 25.0 - 45.0 % [facility] Monocytes 8.7 0.0 - 10.0 % [facility] Eosinophils 1.5 0.0 - 5.0 % [facility] Basophils 0.6 0.0 - 1.0 % [facility] Immature 0.3Comment: "Immature 0.0 - 1.0 % [place] granulocytes granulocytes" (promyelocytes, BUDDHISM myelocytes, metamyelocytes) HOSPITAL Specimen Blood Performing Organization Address City/[facility]/Zipcode Phone Number [facility] DEPARTMENT OF [address] [place] [phone] PATHOLOGY AND GENOMIC MEDICINE [address] * Cytology (non-gynecological) request (03/31/2018 1:06 PM SIDING APPLICATOR) [facility] DEPARTMENT OF PATHOLOGY AND GENOMIC MEDICINE Cytology See link below for PDF Lab [facility] DEPARTMENT (non-gynecologi Report OF PATHOLOGY mk) report AND GENOMIC MEDICINE Result status This is Final Report for [facility] DEPARTMENT [id number] OF PATHOLOGY AND GENOMIC MEDICINE Specimen Performing Organization Address City/[facility]/Zipcode Phone Number [facility] DEPARTMENT OF [address] [place] [address] PATHOLOGY AND GENOMIC MEDICINE * XR Chest 1 Vw (03/31/2018 10:58 AM SIDING APPLICATOR) Specimen Narrative Performed At EXAMINATION:XR CHEST 1 [...] thoracentesis. No acute osseous pathology. [facility]-[id number] Procedure Note [facility], Radiology Results Incoming - 03/31/2018 11:14 AM SIDING APPLICATOR EXAMINATION: XR CHEST 1 VW CLINICAL HISTORY: [...] thoracentesis. No acute osseous pathology. [facility]-[id number] Performing Organization Address City/[facility]/Zipcode Phone Number [facility] [address] [place] [address] * US Thoracentesis With Imaging (03/31/2018 10:49 AM SIDING APPLICATOR) Specimen Narrative Performed At EXAMINATION:US THORACENTESIS WITH IMAGING [facility] CLINICAL HISTORY:Pleural effusion COMPARISON:None. TECHNIQUE: The procedure's risks, benefits, and alternatives were discussed with the patient and written, informed consent was obtained. Using ultrasound guidance, the left pleural effusion was localized and the overlying posterior chest was prepped and draped in the usual sterile fashion. 1% buffered lidocaine was used for local anesthesia. A 5 Cypriot Met[employer] The[employer]se[employer] catheter was inserted into the pleural space [...] left-sided diagnostic and therapeutic thoracentesis. [facility]-[id number] Procedure Note [facility], Radiology Results Incoming - 03/31/2018 1:51 PM SIDING APPLICATOR EXAMINATION: US THORACENTESIS WITH IMAGING CLINICAL HISTORY: Pleural effusion COMPARISON:None. TECHNIQUE: The procedure's risks, benefits, and alternatives were discussed with the patient and written, informed consent was obtained. Using ultrasound guidance, the left pleural effusion was localized and the overlying posterior chest was prepped and draped in the usual sterile fashion. 1% buffered lidocaine was used for local anesthesia. A 5 Cypriot Ilusis catheter was inserted into the pleural space [...] left-sided diagnostic and therapeutic thoracentesis. [facility]-[id number] Performing Organization Address [facility] [place] [address] * Body fluid consult (03/31/2018 10:16 AM SIDING APPLICATOR) Body fluid SEE COMMENT HARVEY consult Comment: BUDDHISM Footnote--------- HOSPITAL MIXED ACUTE AND CHRONIC INFLAMMATORY CELLS AND REACTIVE MESOTHELIAL CELLS. Reviewed by Meagan Naranjo M.D. Specimen Fluid Performing Organization Address [facility]/Zipcode Phone Number [facility] [place] [address] PATHOLOGY AND GENOMIC MEDICINE [place] BUDDHISM [address] [place] [address] HOSPITAL * Aerobic culture (03/31/2018 10:16 AM SIDING APPLICATOR) Aerobic culture No growth after 3 days. HARVEY isolate Comment: BUDDHISM Specimen Information HOSPITAL Specimen Source: Thoracentesis fluid Specimen Site: Pleural Fluid Specimen Thoracentesis fluid - Pleural Fluid Performing Organization Address [facility] Phone Number [facility] DEPARTMENT [place] [phone] PATHOLOGY AND GENOMIC MEDICINE [place] BUDDHISM [address] [place] [address] HOSPITAL * Gram stain (03/31/2018 10:16 AM SIDING APPLICATOR) Only the most recent of 2 results within the time period is included. Gram stain Few WBC's [place] isolate No organisms seen BUDDHISM Comment: HOSPITAL Specimen Information Specimen Source: Thoracentesis fluid Specimen Site: Pleural Fluid Specimen Thoracentesis fluid - Pleural Fluid Performing Organization Address [facility] Phone Number [facility] [place] [address] PATHOLOGY AND GENOMIC MEDICINE [place] BUDDHISM [address] [place] [address] HOSPITAL * AFB stain (03/31/2018 10:16 AM SIDING APPLICATOR) Only the most recent of 2 results within the time period is included. Pathologist [facility] AFB stain No acid fast bacilli (AFB) [place] seen. BUDDHISM Comment: HOSPITAL Specimen Information Specimen Source: Thoracentesis fluid Specimen Site: Pleural Fluid Specimen Thoracentesis fluid - Pleural Fluid Performing Organization Address [facility] Phone Number [facility] [place] [address] PATHOLOGY AND GENOMIC MEDICINE [place] [address] HOSPITAL * Anaerobic culture (03/31/2018 10:16 AM SIDING APPLICATOR) Only the most recent of 2 results within the time period is included. Pathologist [facility] Anaerobic No anaerobic organisms [place] culture isolate isolated. BUDDHISM Comment: HOSPITAL Specimen Information Specimen Source: Thoracentesis fluid Specimen Site: Pleural Fluid Specimen Thoracentesis fluid - Pleural Fluid Performing Organization Address [facility] Phone Number [facility] DEPARTMENT OF [address] [place] [address] PATHOLOGY AND GENOMIC MEDICINE [place] BUDDHISM [address] [place] [address] HOSPITAL * Cell count and differential, body fluid (03/31/2018 10:16 AM SIDING APPLICATOR) Misc fluid type Pleural [facility] Color, fluid Red [facility] Appearance, Cloudy (A) [facility] RBC, fluid 33,000 /CMM [facility] Nucleated 1,337 /CMM [place] cells, [facility] Fluid See DiffComment: Reviewed by CANDICE Naranjo M.D. [facility] Neutrophils, 11 % [facility] Lymphocytes, 56 % [facility] Mesothelial 9 % [place] cells, fluid [facility] Macrophages, 24 % [facility] Fluid 0 % [place] unclassified [facility] Specimen Fluid Performing Organization Address City/State/[facility] Phone Number [facility] [place] [address] PATHOLOGY AND [facility] MEDICINE [address] * Protein, misc fluid (03/31/2018 10:16 AM SIDING APPLICATOR) Fluid type Pleural [facility] Protein, fluid 3.2 g/dL [place] Comment: BUDDHISM Analysis performed on [facility] 8000 analyzer. This is not an approved methodology for this specimen type;accuracy and clinical significance uncertain. Specimen Fluid Performing Organization Address City/[facility] Phone Number [facility] [place] [address] [address] * LDH, misc fluid (03/31/2018 10:16 AM SIDING APPLICATOR) Pathologist [facility] Fluid type Pleural [facility] LDH, fluid 205 U/L [place] Comment: BUDDHISM Analysis performed on [facility] 8000 analyzer. This is not an approved methodology for this specimen type;accuracy and clinical significance uncertain. Specimen Fluid Performing Organization Address City/[facility] Phone Number [facility] [place] [address] PATHOLOGY [address] * Glucose level, misc fluid (03/31/2018 10:16 AM SIDING APPLICATOR) Fluid type Pleural [facility] Glucose, fluid 108 mg/dL [place] Comment: BUDDHISM Analysis performed on [facility] 8000 analyzer. This is not an approved methodology for this specimen type;accuracy and clinical significance uncertain. Specimen Fluid Performing Organization Address City/State/Zipcode Phone Number [facility] DEPARTMENT OF [address] [place] [address] PATHOLOGY AND [facility] MEDICINE [address] * AFB culture (03/31/2018 9:16 AM SIDING APPLICATOR) Only the most recent of 2 results within the time period is included. [facility] AFB culture No growth after 6 weeks of [place] isolate incubation. BUDDHISM Comment: HOSPITAL Specimen Information Specimen Source: Thoracentesis fluid Specimen Site: Pleural Fluid Specimen Thoracentesis fluid - Pleural Fluid Performing Organization Address City/State/Zipcode Phone Number [facility] DEPARTMENT OF [address] [place] [address] PATHOLOGY AND GENOMIC MEDICINE [place] BUDDHISM [address] [place] [address] HOSPITAL * CTA Abdomen W Wo Contrast (03/30/2018 10:19 PM SIDING APPLICATOR) Specimen Narrative Performed At EXAMINATION:CT ANGIOGRAM ABDOMEN [...] Follow-up to resolution is advised. [facility]-[id number] Procedure Note [facility], Radiology Results Incoming - 03/31/2018 6:43 AM SIDING APPLICATOR EXAMINATION: CT ANGIOGRAM ABDOMEN W CONTRAST CLINICAL [...] Follow-up to resolution is advised. [facility]-[id number] Performing Organization Address [facility] [place] [address] * POC glucose (03/30/2018 10:17 AM SIDING APPLICATOR) Only the most recent of 33 results within the time period is included. [facility] POC glucose 118 (H) 65 - 99 mg/dL [place] Comment: BUDDHISM [facility] Notified RN HOSPITAL Meter ID: [id number] [employer] Controls Tester: Valeriano Aviles Specimen Performing Organization Address [facility] Phone Number [facility] [place] [address] PATHOLOGY AND GENOMIC MEDICINE [place] BUDDHISM [address] [place] [address] HOSPITAL * Troponin (03/30/2018 4:00 AM SIDING APPLICATOR) Only the most recent of 7 results within the time period is included. [facility] Troponin <0.30 0.00 - 0.30 ng/mL [place] Comment: BUDDHISM 0.30 - 1.49 HOSPITAL ng/mlMay indicate increased risk of acute coronary syndrome. >=1.5 ng/ml Consistent with acute myocardial infarction. The diagnostic value of a single normal or non-diagnostic result is questionable.Serial samples at 2-6 hour intervals are required to rule out acute myocardial injury. Specimen Plasma specimen Performing Organization Address [facility]/Zipcode Phone Number [facility] DEPARTMENT OF [address] [place] [address] PATHOLOGY AND GENOMIC MEDICINE [address] * LDH (03/30/2018 4:00 AM SIDING APPLICATOR) Only the most recent of 2 results within the time period is included. LDH 488 (H) 87 - 225 U/L [facility] Specimen Plasma specimen Performing Organization Address City/[facility] Phone Number [facility] [place] [address] PATHOLOGY AND GENOMIC MEDICINE [address] * Lactic acid level (03/30/2018 4:00 AM SIDING APPLICATOR) Only the most recent of 8 results within the time period is included. Lactic acid 1.9 0.5 - 2.2 mmol/L [facility] Specimen Plasma specimen Performing Organization Address [facility] Phone Number [facility] [place] [address] PATHOLOGY AND [facility] MEDICINE [address] * Hepatic function panel (03/30/2018 4:00 AM SIDING APPLICATOR) Albumin 2.3 (L) 3.5 - 5.0 g/dL [facility] Total bilirubin 1.1 0.0 - 1.2 mg/dL [facility] Bilirubin <0.2 0.0 - 0.3 mg/dL [facility] Alkaline 139 (H) 40 - 129 U/L [facility] Protein 5.5 (L) 6.3 - 8.3 g/dL [place] Comment: [facility] 4.6-7.0 g/dL 1 week 4.4-7.6 g/dL 7 months-1year 5.1-7.3 g/dL 1-2 years5.6-7 .5 g/dL >3 years6.0-8 .0 g/dL 18-150 6.3-8.3 g/dL ALT 39 5 - 50 U/L [facility] AST 60 (H) 10 - 50 U/L [facility] Specimen Plasma specimen Performing Organization Address [facility] Phone Number [facility] [place] [address] PATHOLOGY AND GENOMIC MEDICINE [address] [address] HOSPITAL * Lactic acid level, SEPSIS - Now and repeat 2x every 3 hours (03/29/2018 9:28 PM SIDING APPLICATOR) Only the most recent of 4 results within the time period is included. Lactic acid 1.4 0.5 - 2.2 mmol/L [facility] Specimen Blood Performing Organization Address City/State/Zipcode Phone Number [facility] DEPARTMENT OF [address] [place] [address] PATHOLOGY AND GENOMIC MEDICINE [address] * CT Angiogram Pe Chest (03/29/2018 8:11 PM SIDING APPLICATOR) Specimen Addenda Addendum by James Urena MD on 03/29/2018 8:40 PM ADDENDUM #1 There is partial absence of the left posterior 11th rib adjacent to the partially visualized left retroperitoneal fluid collection. It is indeterminate if this finding is related to postsurgical change or other aggressive process (infection/inflammation or neoplasm). Recommend clinical correlation. Narrative Performed At CT ANGIOGRAM PE CHEST [facility] CLINICAL INDICATION: PE suspectedhigh pretest prob COMPARISON:CT [...] at T9 and inferior levels. [facility]-[id number] Procedure Note [facility], Radiology Results Incoming - 03/29/2018 8:[address] ANGIOGRAM PE CHEST CLINICAL INDICATION: PE [...] at T9 and inferior levels. [facility]-[id number] Performing Organization Address [facility] [place] [address] * Partial thromboplastin time, activated (03/29/2018 5:06 PM SIDING APPLICATOR) Only the most recent of 8 results within the time period is included. Pathologist [facility] PTT 29.3 23.0 - 36.0 sec [place] Comment: BUDDHISM PTT therapeutic range for HOSPITAL unfractionated heparin is 61.0-112.0 seconds which corresponds to Anti-Xa 0.3-0.7 U/ml. Specimen Blood Performing Organization Address [facility] Phone Number [facility] [place] [address] PATHOLOGY AND GENOMIC MEDICINE [address] * Prothrombin time with INR (03/29/2018 5:06 PM SIDING APPLICATOR) Only the most recent of 10 results within the time period is included. Pathologist [facility] Prothrombin 13.3 11.5 - 14.5 sec [facility] INR 1.0 [place] Comment: BUDDHISM The International Normalized HOSPITAL Ratio (INR) is a therapeutic monitoring tool for patients who are stable on oral anticoagulant therapy. An INR of 2.0-3.0 is suggested for deep vein thrombosis/pulmonary embolism. Specimen Blood Performing Organization Address [facility] Phone Number [facility] DEPARTMENT OF [address] [place] [address] PATHOLOGY AND GENOMIC MEDICINE [address] * B natriuretic peptide (03/29/2018 5:06 PM SIDING APPLICATOR) Only the most recent of 3 results within the time period is included. Pathologist [facility] BNP 17 0 - 100 pg/mL [facility] Specimen Blood Performing Organization Address City/[facility] Phone Number [facility] [place] [address] PATHOLOGY AND GENOMIC MEDICINE [address] * Creatine kinase, total (CPK) (03/29/2018 5:06 PM SIDING APPLICATOR) Only the most recent of 2 results within the time period is included. Pathologist [facility] Creatine kinase 36 (L) 39 - 308 U/L [facility] Specimen Blood Performing Organization Address [facility] Phone Number [facility] [place] [address] PATHOLOGY AND GENOMIC MEDICINE [address] * Comprehensive metabolic panel (03/29/2018 5:06 PM SIDING APPLICATOR) Only the most recent of 6 results within the time period is included. Pathologist [facility] Sodium 144 135 - 148 mEq/L [facility] Potassium 4.6 3.5 - 5.0 mEq/L [facility] Chloride 103 98 - 112 mEq/L [facility] CO2 27 24 - 31 mEq/L [facility] Anion gap 14@ANIO 7 - 15 mEq/L [facility] BUN 13 8 - 23 mg/dL [facility] Creatinine 0.86 0.70 - 1.20 mg/dL [facility] Glucose 93 65 - 99 mg/dL [facility] Calcium 9.6 8.8 - 10.2 mg/dL [facility] Protein 6.4 6.3 - 8.3 g/dL [place] Comment: [facility] 4.6-7.0 g/dL 1 week 4.4-7.6 g/dL 7 months-1year 5.1-7.3 g/dL 1-2 years5.6-7 .5 g/dL >3 years6.0-8 .0 g/dL 18-150 6.3-8.3 g/dL Albumin 2.9 (L) 3.5 - 5.0 g/dL [facility] A/G ratio 0.8 0.7 - 3.8 [facility] Alkaline 179 (H) 40 - 129 U/L [place] phosphatase [facility] AST 33 10 - 50 U/L [facility] ALT 44 5 - 50 U/L [facility] Total bilirubin 1.3 (H) 0.0 - 1.2 mg/dL [facility] Specimen Plasma specimen Performing Organization Address City/[facility] Phone Number [facility] DEPARTMENT OF [address] [place] [address] PATHOLOGY AND GENOMIC MEDICINE [address] * ECG ED Preliminary Interpretation - Not an Order (03/29/2018 3:31 PM SIDING APPLICATOR) Narrative Performed At Kellie Yates MD 03/29/2018 10:00 PM ECG ED Preliminary Interpretation - Not an Order Performed by: Kellie Yates MD Authorized by: Kellie Yates MD ECG reviewed by ED Physician in the absence of a surgical appliance fitter: yes Interpretation: Interpretation: abnormal Rate: ECG rate:102 ECG rate assessment: tachycardic Rhythm: Rhythm: sinus tachycardia Ectopy: Ectopy: none QRS: QRS axis:Normal QRS intervals:Normal Conduction: Conduction: normal ST segments: ST segments:Normal T waves: T waves: non-specific * ECG 12 lead (03/29/2018 3:17 PM SIDING APPLICATOR) Only the most recent of 2 results within the time period is included. Ventricular 103 [facility] rate Atrial rate 103 [facility] MT interval 146 [facility] QRSD interval 82 [facility] QT interval 362 [facility] QTC interval 474 [facility] P axis 1 54 [facility] QRS axis 1 16 [facility] T wave axis 22 HM MUSE EKG impression Sinus tachycardia-Nonspecific [facility] MUSE T wave abnormality-Abnormal ECG-In automated comparison with ECG of 16-DEC-2017 13:45,-Criteria for Septal infarct are no longer present- Specimen Narrative Performed At Performing Organization Address [facility] Phone Number [facility] [address] [place] [phone] * Us duplex venous lower extremity (03/07/2018 11:36 AM SIDING APPLICATOR) Only the most recent of 3 results within the time period is included. Specimen Narrative Performed At [facility] Vascular Ultrasound Laboratory Lower Extremity Venous Report [address] [facility] [address] [id number] Pat.Name:SHERYL EWING.ID:[id number] .Date: 03/07/2018 Refer.MD:ONEL ROY MD Exam Time: 10:55:00 AM Study Type:LE Venous Height:72inDOBAge:1950,67Y Sex: MALESonogrphr: Gilma Argueta RVT Pat. Stat.:[facility] Tape[facility]: [place], CPT - 4: 29100 Echo Event ID:[id number] Order ID:[id number] Reason for Study:Suspect DVT per ordering physician. [...] Radiology Results In - 03/07/2018 10:58 PM [facility] Vascular Ultrasound Laboratory Lower Extremity Venous Report [address] [address] Pat.Name: SHERYL EWING Pat.ID: [id number] St.Date: 03/07/2018 Refer.MD: ONEL ROY MD Exam Time: 10:55:00 AM Study Type:LE Venous Height: 72in Age: 10 1950,67Y Sex: MALE Sonogrphr: Gilma Argueta RVT Pat. Stat.:Inpatient Room: D727A Tape Vol: [place], CPT - 4: 32154 Echo Event ID:[id number] Order ID: [id number] Reason for Study:Suspect DVT per ordering physician. [...] Demarcus Agudelo MD, RPVI Performing Organization Address City/[facility] Phone Number [facility] [address] [place] [address] * Thyroid stimulating hormone (03/07/2018 4:00 AM SIDING APPLICATOR) Only the most recent of 2 results within the time period is included. TSH 1.69 0.27 - 4.20 uIU/mL [facility] Specimen Plasma specimen Performing Organization Address [facility] Phone Number [facility] DEPARTMENT OF [address] [place] [address] PATHOLOGY AND GENOMIC MEDICINE [address] * Echocardiogram complete w contrast and 3D if needed (03/05/2018 10:16 AM SIDING APPLICATOR) Specimen Narrative Performed At [facility] Echocardiography Report [address] [place] [address] Pat.Name:SHERYL EWING.ID:[id number] .Date: 03/05/2018 Refer.MD:AISHWARYA ROY. Exam Time: 9:43:00 AMStudy Type:Routine Echo Height:70inWeight:206lb BSA: 2.12 m2 DOBAge:1950,67Y Sex: MALEBP:145/77 HR:89 bpmSonogrphr: NIDA Patiño Pat. Stat.:Inpatient Room:J6680S Study Status:Final Echo Event ID:[id number] Order ID:[id number] Reason for Study:Ventricular Function - Routine surveillance [...] PA systolic pressure. MEASUREMENTS: 2D Parasternal [place] Ds3 cmLVPWd0.9 cm LVIDd4.4 cmIndex2.1 cm/m Ao Rtd 3.9 cm Index1.8 cm/m LVIDs2.8 cm LV Tqem555.9 g(122-174) LV%fs 36.7 % LVM Index 67.9 g/m2 IVSd 1.1 cmRWT0.4 DOPPLER LVOT Stroke Vol LVOT 2.3 cmLVOT CO6 l/min LVOT TVI16.4 cmLVOT CI2.8 l/m/m2 LVOT Tm254 hwqnPW06 bpm LVOT SV 68.2 ml Signed 03/05/2018 03:38 PM Félix Hoyt M.D. Procedure Note Interface, Radiology Results In - 03/05/2018 3:38 PM [facility] Echocardiography Report [address] [facility], [place] [address], [address]Name: SHERYL EWING Siobhan.ID: [id number] .Date: 03/05/2018 Refer.MD: ONEL ROY MD. Exam Time: 9:43:00 AM Study Type:Routine Echo Height: 70in Weight: 206lb BSA: 2.12 m2 Age: 10 1950,67Y Sex: MALE BP: 145/77 HR: 89 bpm Sonogrphr: NIDA Patiño Pat. Stat.:Inpatient Room: G7402I Study Status:Final Echo Event ID:[id number] Order ID: [id number] Reason for Study:Ventricular Function - Routine surveillance [...] PA systolic pressure. MEASUREMENTS: 2D Par[place] Ds 3 cm LVPWd 0.9 cm [...] Organization Address City/State/Zipcode Phone Number [facility] [address] [place] [address] * CT Chest Wo Contrast (03/05/2018 9:35 AM SIDING APPLICATOR) Specimen Narrative Performed At EXAMINATION: CT CHEST [...] values and contrast-enhanced abdominal CT if indicated. [facility]-[id number] Procedure Note Interface, Radiology Results Incoming - 03/05/2018 9:52 AM SIDING APPLICATOR EXAMINATION: CT CHEST WO CONTRAST CLINICAL HISTORY: [...] values and contrast-enhanced abdominal CT if indicated. [facility]-[id number] Performing Organization Address City/State/[place] [address] * Arterial blood gas (03/04/2018 11:39 AM SIDING APPLICATOR) Only the most recent of 7 results within the time period is included. pH, arterial 7.50 (H) 7.35 - 7.45 [facility] pCO2, arterial 37 35 - 45 mmHg [facility] pO2, arterial 82 80 - 90 mmHg [facility] Bicarbonate, 28.6 (H) 21.0 - 28.0 mmol/L [facility] Base excess, 6 (H) -2 - 2 mEq/L [facility] O2 saturation, 97 95 - 100 % [facility] Specimen Blood Performing Organization Address [facility] Phone Number [facility] [place] [address] PATHOLOGY AND GENOMIC MEDICINE [address] * Ionized calcium, arterial (03/04/2018 12:30 AM SIDING APPLICATOR) Only the most recent of 8 results within the time period is included. Pathologist [facility] Ionized 0.94 (L) 1.11 - 1.32 mmol/L [facility] arterial [facility] Specimen Blood Performing Organization Address City/[facility]/Zipcode Phone Number [facility] [place] [address] PATHOLOGY AND [facility] MEDICINE [address] * Fibrinogen (03/04/2018 12:30 AM SIDING APPLICATOR) Only the most recent of 3 results within the time period is included. Fibrinogen 464 (H) 200 - 450 mg/dL [facility] Specimen Blood Performing Organization Address City/State/Zipcode Phone Number [facility] DEPARTMENT OF [address] [place] [address] PATHOLOGY AND GENOMIC MEDICINE [address] * Transfuse fresh frozen plasma (03/01/2018 5:21 PM SIDING APPLICATOR) Only the most recent of 3 results within the time period is included. * Transfuse platelets (03/01/2018 3:58 PM SIDING APPLICATOR) Only the most recent of 2 results within the time period is included. * Surgical pathology request (03/01/2018 3:10 PM SIDING APPLICATOR) Only the most recent of 3 results within the time period is included. [facility] DEPARTMENT OF PATHOLOGY AND GENOMIC MEDICINE Surgical See link below for PDF Lab [facility] DEPARTMENT pathology Report OF PATHOLOGY report AND GENOMIC MEDICINE Result status This is Final Report for [facility] DEPARTMENT [id number] OF PATHOLOGY AND GENOMIC MEDICINE Specimen Performing Organization Address City/[facility]/Zipcode Phone Number [facility] DEPARTMENT OF [address] [place] [address] PATHOLOGY AND GENOMIC MEDICINE * Intraoperative monitoring (03/01/2018 1:25 PM SIDING APPLICATOR) Narrative Performed At INTRAOPERATIVE NEURO MONITORING Patient Name: Sheryl Ewing Date of : 1950 Gender: male Surgical Procedure:L1-L3 ALIF/L2 corpectomy OR: (PETER) Room #: (19) Tech #1: (JS/AMc) Start Time: (0945) End Time: (1300) Total Time (in hours): (3) Date of Service: 03/01/18 Physician IOM Time: 3 Hours Procedure(s) performed During IOM: 93238, 74151, 55669 ICD10: M47.16 Stimulation Parameters Ulnar nerves individually [...] . * Transfuse RBC (03/01/2018 1:17 PM SIDING APPLICATOR) Only the most recent of 8 results within the time period is included. * OR [place] > I Hour (03/01/2018 1:06 PM SIDING APPLICATOR) Only the most recent of 3 results [...] Radiology Results Incoming - 03/02/2018 6:48 PM SIDING APPLICATOR EXAMINATION: OR [place] 1 HOUR C-arm fluoroscopy was requested in OR. LOCATION:[facility]19 PROCEDURE: Anterior Corpectomy L2 Fusion START: 944 END: 1300 FLUORO TIME: 20sec DOSE: 28.47 TECH(S): STONE/SELENA IMPRESSION: Separate operative report will be issued by the physician performing the procedure. [id number] Performing Organization Address [facility]/[place] [address] * Sodium level, syringe (03/01/2018 12:11 PM SIDING APPLICATOR) Only the most recent of 5 results within the time period is included. Sodium, syringe 137 135 - 148 mEq/L [facility] Specimen Blood Performing Organization Address [facility] Phone Number [facility] [place] [address] PATHOLOGY AND [facility] MEDICINE [address] * Potassium, syringe (03/01/2018 12:11 PM SIDING APPLICATOR) Only the most recent of 5 results within the time period is included. Potassium, 3.8 3.5 - 5.0 mEq/L [facility] Specimen Blood Performing Organization Address [facility] Phone Number [facility] [place] [address] PATHOLOGY AND [facility] MEDICINE [address] * Lactic acid, syringe (03/01/2018 12:11 PM SIDING APPLICATOR) Only the most recent of 5 results within the time period is included. Lactic acid, 1.5 0.5 - 2.2 mmol/L [facility] Specimen Blood Performing Organization Address [facility] Phone Number [facility] [place] [address] PATHOLOGY AND GENOMIC MEDICINE [address] * Hemoglobin, syringe (03/01/2018 12:11 PM SIDING APPLICATOR) Only the most recent of 5 results within the time period is included. Hemoglobin, 10.0 (L) 14.0 - 18.0 g/dL [facility] Specimen Blood Performing Organization Address [facility] Phone Number [facility] [place] [address] PATHOLOGY [place] [address] HOSPITAL * Glucose level, syringe (03/01/2018 12:11 PM SIDING APPLICATOR) Only the most recent of 5 results within the time period is included. Pathologist [facility] Glucose, 125 (H) 65 - 99 mg/dL [place] syringe [facility] Specimen Blood Performing Organization Address City/State/Zipcode Phone Number [facility] [place] [address] PATHOLOGY AND [facility] MEDICINE [address] * Arterial blood gas, corrected (03/01/2018 12:11 PM SIDING APPLICATOR) Only the most recent of 4 results within the time period is included. Pathologist [facility] pH, arterial 7.39 7.35 - 7.45 [facility] pCO2, arterial 43 35 - 45 mmHg [facility] pO2, arterial 113 (H) 80 - 90 mmHg [facility] Temperature, 35.8 Degrees C [place] Celsius [facility] O2 saturation, 99 95 - 100 % [place] arterial [facility] pH, arterial 7.41 [place] corrected [facility] pCO2, arterial 41 mmHg [facility] pO2, arterial 106 mmHg [facility] Base excess, 1 -2 - 2 mEq/L [facility] Specimen Blood Performing Organization Address City/[facility] Phone Number [facility] [place] [address] PATHOLOGY AND [facility] MEDICINE [address] * Prepare platelet pheresis, 1 Units (03/01/2018 12:20 AM SIDING APPLICATOR) Only the most recent of 2 results within the time period is included. Product name Apheresis Platelet [facility]CDA [facility] [place] [facility] Unit number [id number] [facility] Product code [id number] [facility] Dispense status Transfused [facility] Blood [id number] [place] expiration date [facility] Blood type code 5100 [facility] Blood type O POSITIVE [facility] Specimen Performing Organization Address City/State/Zipcode Phone Number [facility] [place] [address] PATHOLOGY AND [facility] MEDICINE [address] * Prepare fresh frozen plasma, 2 Units (03/01/2018 12:20 AM SIDING APPLICATOR) Only the most recent of 3 results within the time period is included. Product name Thawed Plasma [facility] Unit number [id number] [facility] Product code [id number] [facility] Dispense status Transfused [facility] Blood [id number] [place] expiration date [facility] Blood type code 5100 [facility] Blood type O POSITIVE [facility] Product name Thawed Plasma [facility] Unit number [id number] [facility] Product code [id number] [facility] Dispense status Transfused [facility] Blood [id number] [place] expiration date [facility] Blood type code 5100 [facility] Blood type O POSITIVE [facility] Specimen Blood Performing Organization Address City/State/Zipcode Phone Number [facility] DEPARTMENT OF [address] [place] [address] PATHOLOGY AND [place] [address] HOSPITAL * Prepare RBC (03/01/2018 12:20 AM SIDING APPLICATOR) Only the most recent of 7 results within the time period is included. Product name Apheresis Red Cell AS3 #1 LR [facility] Unit number [id number] [facility] Product code [id number] [facility] Dispense status Transfused [facility] Blood [id number] [place] expiration [facility] Blood type code 5100 [facility] Blood type O POSITIVE [facility] Product name Red Blood Cells -1, Leukored [facility] Unit number [id number] [facility] Product code [id number] [facility] Dispense status Transfused [facility] Blood [id number] [place] expiration [facility] Blood type code 5100 [facility] Blood type O POSITIVE [facility] Product name Red Blood Cells -1, Leukored [facility] Unit number [id number] [facility] Product code [id number] [facility] Dispense status Transfused [facility] Blood [id number] [place] expiration date [facility] Blood type code 5100 [facility] Blood type O POSITIVE [facility] Product name Apheresis Red Cell AS3 #2 LR [facility] Unit number [id number] [facility] Product code [id number] [facility] Dispense status Transfused [facility] Blood [id number] [place] expiration date [facility] Blood type code 5100 [facility] Blood type O POSITIVE [facility] Specimen Performing Organization Address City/[facility] Phone Number [facility] DEPARTMENT OF [address] [place] [address] PATHOLOGY AND GENOMIC MEDICINE [address] * Type and screen (03/01/2018 12:20 AM SIDING APPLICATOR) Only the most recent of 4 results within the time period is included. ABO grouping O [facility] Rh type POS [facility] Antibody screen NEG [place] (gel) [facility] Specimen Blood Performing Organization Address [facility] Phone Number [facility] [place] [address] PATHOLOGY AND GENOMIC MEDICINE [address] * CBC hemogram (02/28/2018 4:10 PM SIDING APPLICATOR) Only the most recent of 7 results within the time period is included. WBC 11.91 (H) 4.50 - 11.00 k/uL [facility] RBC 3.50 (L) 4.40 - 6.00 m/uL [facility] HGB 10.1 (L) 14.0 - 18.0 g/dL [facility] HCT 30.5 (L) 41.0 - 51.0 % [facility] MCV 87.1 82.0 - 100.0 fL [facility] MCH 28.9 27.0 - 34.0 pg [facility] MCHC 33.1 31.0 - 37.0 g/dL [facility] RDW - SD 44.2 37.0 - 55.0 fL [facility] MPV 9.6 8.8 - 13.2 fL [facility] Platelet count 143 (L) 150 - 400 k/uL [facility] Nucleated RBC 0.00 /100 WBC [facility] Specimen Blood Performing Organization Address City/[facility] Phone Number [facility] [place] [address] PATHOLOGY AND GENOMIC MEDICINE [address] * CT Lumbar Spine Wo Contrast (02/28/2018 2:55 PM SIDING APPLICATOR) Only the most recent of 2 results [...] of the comminuted L2 vertebral body fracture. [id number] Procedure Note Hm Interface, Radiology Results Incoming - 02/28/2018 3:26 PM SIDING APPLICATOR EXAMINATION: CT LUMBAR SPINE WO CONTRAST CLINICAL [...] of the comminuted L2 vertebral body fracture. [facility]-[id number] Performing Organization Address City/State/Zipcode Phone Number [facility] [address] [place] [address] * CT Thoracic Spine Wo Contrast (02/28/2018 2:55 PM SIDING APPLICATOR) Specimen Narrative Performed At EXAMINATION: CT THORACIC [...] with expected postoperative findings as detailed above. [facility]-[id number] Procedure Note Hm Interface, Radiology Results Incoming - 02/28/2018 3:13 PM SIDING APPLICATOR EXAMINATION: CT THORACIC SPINE WO CONTRAST CLINICAL [...] with expected postoperative findings as detailed above. [facility]-[id number] Performing Organization Address City/State/Zipcode Phone Number [facility] [address] [place] [address] * Ionized calcium (02/28/2018 1:54 AM SIDING APPLICATOR) Only the most recent of 4 results within the time period is included. pH 7.60 [facility] Ionized calcium 1.07 (L) 1.11 - 1.32 mmol/L [facility] Specimen Plasma specimen Performing Organization Address City/[facility] Phone Number [facility] DEPARTMENT OF [address] [place] [address] PATHOLOGY AND GENOMIC MEDICINE [address] * Intraoperative monitoring (02/26/2018 3:05 PM SIDING APPLICATOR) Narrative Performed At * Hemoglobin & hematocrit (02/25/2018 7:12 PM SIDING APPLICATOR) Only the most recent of 2 results within the time period is included. HGB 11.1 (L) 14.0 - 18.0 g/dL [facility] HCT 34.2 (L) 41.0 - 51.0 % [facility] Specimen Blood Performing Organization Address [facility] Phone Number [facility] DEPARTMENT OF [address] [place] [address] PATHOLOGY AND GENOMIC MEDICINE [address] * XR Lumbar Spine 1 Vw (02/25/2018 1:30 PM SIDING APPLICATOR) Only the most recent of 2 results [...] anterior fragment displaced inferiorly. IMPRESSION: Intraoperative imaging. [facility]-[id number] Procedure Note Interface, Radiology Results Incoming - 02/25/2018 4:11 PM SIDING APPLICATOR EXAMINATION: XR LUMBAR SPINE 1 VW NUMBER [...] anterior fragment displaced inferiorly. IMPRESSION: Intraoperative imaging. [facility]-[id number] Performing Organization Address [facility] [place] [address] * Urine culture (02/25/2018 12:37 PM SIDING APPLICATOR) Only the most recent of 2 results within the time period is included. Urine culture growth after 24 hours [place] isolate Comment: B[facility] Specimen Information HOSPITAL Specimen Source: Urine Specimen Site: [place] Catheterized Specimen Urine Performing Organization Address [facility] Phone Number [facility] [place] [address] PATHOLOGY AND [facility] MEDICINE [address] * Fungus smear (02/25/2018 10:00 AM SIDING APPLICATOR) Fungus smear No fungi observed. HAR[facility] Comment: [place] Specimen Information HOSPITAL Specimen Source: Urine Specimen Site: [place] Catheterized Specimen Urine Performing Organization Address [facility] Phone Number [facility] [place] [address] PATHOLOGY AND [facility] MEDICINE [address] * Fungus culture (02/25/2018 10:00 AM SIDING APPLICATOR) Fungus culture No growth after 4 weeks of [place] isolate incubation. BUDDHISM Comment: HOSPITAL Specimen Information Specimen Source: Urine Specimen Site: [place] Catheterized Specimen Urine Performing Organization Address City/State/Zipcode Phone Number [facility] DEPARTMENT OF [address] [place] [address] PATHOLOGY AND GENOMIC MEDICINE [address] * Urinalysis, automated with microscopy (02/22/2018 11:34 AM SIDING APPLICATOR) Color, UA Yellow [facility] Appearance, UA Clear [facility] Specific 1.019 1.001 - 1.035 [place] gravity, [facility] pH, UA 6.0 5.0 - 8.5 [facility] Protein, UA Negative Negative [facility] Glucose, UA Negative Negative [facility] Ketones, UA Negative Negative [facility] Bilirubin, UA Negative Negative [facility] Blood, UA Small (A) Negative [facility] Nitrite, UA Negative Negative [facility] Urobilinogen, <2.0 <2.0 [facility] Leukocyte Negative Negative [place] [facility] WBC, UA 1 0 - 1 /HPF [facility] RBC, UA 1 0 - 5 /HPF [facility] Bacteria, UA Few None seen [facility] Yeast, UA None seen [facility] Yeast with None seen [place] [facility] Specimen Urine Performing Organization Address City/[facility]/Zipcode Phone Number [facility] DEPARTMENT OF [address] [place] [address] PATHOLOGY AND GENOMIC MEDICINE [address] * XR Abdomen 1 Vw Portable (02/19/2018 12:00 PM SIDING APPLICATOR) Specimen Narrative Performed At EXAM: [facility] XR [...] Minimal degenerative changes of the lumbar spine. [facility]-[id number] Procedure Note Interface, Radiology Results Incoming - 02/19/2018 1:05 PM SIDING APPLICATOR EXAM: XR ABDOMEN 1 VW PORTABLE INDICATION: [...] Minimal degenerative changes of the lumbar spine. [facility]-[id number] Performing Organization Address City/State/Zipcode Phone Number [facility] [address] [place] [address] * Intraoperative monitoring (02/19/2018 11:29 AM SIDING APPLICATOR) Narrative Performed At INTRAOPERATIVE NEURO MONITORING Patient [...] Time: 2 Hours Procedure(s) performed During IOM: 12434, 16807, 28380 ICD10: M47.16 Stimulation Parameters Ulnar nerves individually [...] . * ANESTHESIA INTUBATION (02/19/2018 9:06 AM SIDING APPLICATOR) Narrative Performed At Jef Buchanan MD 02/19/20189:09 AM ANESTHESIA INTUBATION Date/Time: 02/19/2018 7:23 AM Performed by: Jef Buchanan MD Authorized by: Les Hayes MD Location:OR Urgency:Elective Difficult Airway: No Anesthesiologist:Les Hayes MD Resident/LABEL DRIER/AA:Jef Buchanan MD Performed by: resident/LABEL DRIER/AA Preoxygenated with 100% O2: Yes C-spine Precautions [...] Thoracic Spine Wo Contrast (12/29/2017 9:00 AM SIDING APPLICATOR) Specimen Narrative Performed At [facility] EXAMINATION:MRI THORACIC [...] No acute osseous abnormality or spondylolisthesis identified. [id number] Procedure Note Interface, Radiology Results Incoming - 12/29/2017 10:05 AM SIDING APPLICATOR EXAMINATION: MRI THORACIC SPINE WO CONTRAST CLINICAL [...] No acute osseous abnormality or spondylolisthesis identified. [id number] Performing Organization Address City/State/Zipcode Phone Number [facility] [address] [facility] [place] [address] * Echocardiogram complete w contrast and 3D if needed (12/17/2017 10:24 AM SIDING APPLICATOR) Specimen Narrative Performed At [facility] Echocardiography Report [address] [place] [address] Pat.Name:SHERYL EWING.ID:[id number] .Date: 12/17/2017 Refer.MD:SKYLA BEAN MD Exam Time: 9:45:00 AMStudy Type:Routine Echo Height:70inWeight:205lb BSA: 2.11 m2 DOBAge:1950,67Y Sex: MALEBP:133/84 HR:74 bpmSonogrphr: Alvaro Harris RDCS Pat. Stat.:Inpatient Room:[facility] Study Status:Final Echo Event ID:[id number] Order ID:[id number] Reason for Study:SYNCOPE AND COLLAPSE. HYPERTENSION Procedures:2D [...] noted. TV: No structural TV abnormalities noted. [place]: LV relaxation is normal. LV filling pressure is normal. Other:Insufficient TR jet to estimate PA systolic pressure. MEASUREMENTS: 2D Parasternal [place] LVOT 2.1 cmLA Ds2.8 cm LVIDd4.8 cmIndex2.3 cm/m Ao Rtd 3.6 cm Index1.7 cm/m LVIDs3.5 cm LV Zajf314.5 g(122-174) LV%fs 26.8 % LVM Index 61.9 [...] Radiology Results In - 12/17/2017 4:56 PM SIDING APPLICATOR Echocardiography Report [address] [facility], [place] [address], [place] [address] Pat.Name: SHERYL EWING.ID: [id number] .Date: 12/17/2017 Refer.MD: SKYLA BEAN MD Exam Time: 9:45:00 AM Study Type:Routine Echo Height: 70in Weight: 205lb BSA: 2.11 m2 Age: 11 1950,67Y Sex: MALE BP: 133/84 HR: 74 bpm Sonogrphr: Alvaro Harris RDCS Pat. Stat.:Inpatient Room: M669 Study Status:Final Echo Event ID:[id number] Order ID: [id number] Reason for Study:SYNCOPE AND COLLAPSE. HYPERTENSION Procedures:2D [...] PA systolic pressure. MEASUREMENTS: 2D Parasternal [place] LVOT 2.1 cm LA Ds 2.8 cm [...] M.D. Performing Organization Address City/State/Zipcode Phone Number [facility] [address] [place] [phone] * Pv carotid duplex (12/17/2017 9:42 AM SIDING APPLICATOR) Specimen Narrative Performed At [facility] Vascular Ultrasound Laboratory Carotid Artery Duplex Report [address] [place] [id number] For senior quality control inspector purposes, the categorization of the degree of the stenosis of this exam is based on criteria described in the IAC carotid stenosis grading white paper( www.intersocietal.org/Vascular) and Toby Parham., Laurence Easton., et al. Carotid artery stenosis: leavitt-scale and Doppler US diagnosis--Society of Radiologists in Ultrasound Consensus Conference. Radiology. 2003 Nov; 229(2):340-6. Pat.Name:SHERYL EWING JPat.ID:[id number] .Date: 12/17/2017 Refer.MD:SKYLA BEAN MD Exam Time: 9:06:00 AMStudy Type:Carotid DOBAge:1950,67YSex: MALE Sonogrphr: Donald Llamas, RDMS, RVTPat. Stat.:Inpatient Room:J293-TUwqrUzz: , [facility] - 4: [address]51 Echo Event ID:[id number] Order ID:[id number] Reason for Study:Syncopal episode. HTN, HLP, OA, [...] Radiology Results In - 12/18/2017 7:45 AM [facility] Vascular Ultrasound Laboratory Carotid Artery Duplex Report [address] [address] For senior quality control inspector purposes, the categorization of the degree of the stenosis of this exam is based on criteria described in the IAC carotid stenosis grading white paper( www.intersocietal.org/Vascular) and Toby Parham., Laurence Easton., et al. Carotid artery stenosis: leavitt-scale and Doppler US diagnosis--Society of Radiologists in Ultrasound Consensus Conference. Radiology. 2003 Nov; 229(2):340-6. Pat.Name: SHERYL EWING Pat.ID: [id number] .Date: 12/17/2017 Refer.MD: SKYLA BEAN MD Exam Time: 9:06:00 AM Study Type:Carotid Age: 11 1950,67Y Sex: MALE Sonogrphr: Donald Llamas RDMS, RVT Pat. Stat.:Inpatient Room: [facility]-A Tape Vol: ST, CPT - 4: 15413 Echo Event ID:[id number] Order ID: [id number] Reason for Study:Syncopal episode. HTN, HLP, OA, [...] Organization Address City/State/Zipcode Phone Number [facility] [address] [place] [address] * T4, free (12/17/2017 4:16 AM SIDING APPLICATOR) T4, free 1.2 0.9 - 1.7 ng/dL [facility] DEPARTMENT OF PATHOLOGY AND GENOMIC MEDICINE Specimen Plasma specimen Performing Organization Address [facility] Phone Number [facility] DEPARTMENT OF [address] [place] [address] PATHOLOGY AND GENOMIC MEDICINE * Lipid panel (12/17/2017 4:16 AM SIDING APPLICATOR) Cholesterol 111 <200 mg/dL [facility] DEPARTMENT OF PATHOLOGY AND GENOMIC MEDICINE Triglycerides 54 <150 mg/dL [facility] DEPARTMENT OF PATHOLOGY AND GENOMIC MEDICINE HDL cholesterol 52 >40 mg/dL [facility] DEPARTMENT OF PATHOLOGY AND GENOMIC MEDICINE LDL cholesterol 58Comment: Result obtained by <100 mg/dL [facility] DEPARTMENT direct LDL measurement OF PATHOLOGY AND GENOMIC MEDICINE Lipid panel SeeBelow [facility] DEPARTMENT interpretation Comment: OF PATHOLOGY [...] mg/dL) Specimen Plasma specimen Performing Organization Address [facility] Phone Number [facility] DEPARTMENT OF [address] [place] [address] PATHOLOGY AND [facility] MEDICINE * EEG (routine) (12/16/2017 9:29 PM SIDING APPLICATOR) Narrative Performed At EEG AWAKE AND DROWSY [...] Brain W Wo Contrast (12/16/2017 8:46 PM SIDING APPLICATOR) Specimen Narrative Performed At [facility] EXAMINATION: MRI BRAIN W WO CONTRAST COMPARISON: None CLINICAL HISTORY Altered level of consciousness (LOC)unexplained, Concern for WELLHEAD PUMPER inflammation infection neoplasm. TECHNIQUE: Multiplanar multisequence examination [...] hemorrhage, or abnormal enhancing lesions. [facility]-[id number] Procedure Note Interface, Radiology Results Incoming - 12/16/2017 8:52 PM SIDING APPLICATOR EXAMINATION: MRI BRAIN W WO CONTRAST COMPARISON: None CLINICAL HISTORY Altered level of consciousness (LOC) unexplained, Concern for WELLHEAD PUMPER inflammation infection neoplasm. TECHNIQUE: Multiplanar multisequence examination [...] hemorrhage, or abnormal enhancing lesions. [facility]-[id number] Performing Organization Address City/State/Zipcode Phone Number [facility] [address] [place] [address] * Urinalysis screen and microscopy, with reflex to culture (12/16/2017 5:22 PM SIDING APPLICATOR) Specimen site Clean catch [facility] DEPARTMENT OF PATHOLOGY AND GENOMIC MEDICINE Color, UA Straw [facility] DEPARTMENT OF PATHOLOGY AND GENOMIC MEDICINE Appearance, UA Clear [facility] DEPARTMENT OF PATHOLOGY AND GENOMIC MEDICINE Specific 1.010 1.001 - 1.035 [facility] DEPARTMENT gravity, UA OF PATHOLOGY AND GENOMIC MEDICINE pH, UA 7.0 5.0 - 8.5 [facility] DEPARTMENT OF PATHOLOGY AND GENOMIC MEDICINE Protein, UA 1+ (A) Negative [facility] DEPARTMENT OF PATHOLOGY AND GENOMIC MEDICINE Glucose, UA Negative Negative [facility] DEPARTMENT OF PATHOLOGY AND GENOMIC MEDICINE Ketones, UA Negative Negative [facility] DEPARTMENT OF PATHOLOGY AND GENOMIC MEDICINE Bilirubin, UA Negative Negative [facility] DEPARTMENT OF PATHOLOGY AND GENOMIC MEDICINE Blood, UA Negative Negative [facility] DEPARTMENT OF PATHOLOGY AND GENOMIC MEDICINE Nitrite, UA Negative Negative [facility] DEPARTMENT OF PATHOLOGY AND GENOMIC MEDICINE Urobilinogen, <2.0 <2.0 [facility] DEPARTMENT UA OF PATHOLOGY AND GENOMIC MEDICINE Leukocyte Negative Negative [facility] DEPARTMENT esterase, UA OF PATHOLOGY AND GENOMIC MEDICINE Epithelial <1 /HPF [facility] DEPARTMENT cells, UA OF PATHOLOGY AND GENOMIC MEDICINE WBC, UA <1 0 - 1 /HPF [facility] DEPARTMENT OF PATHOLOGY AND GENOMIC MEDICINE RBC, UA <1 0 - 5 /HPF [facility] DEPARTMENT OF PATHOLOGY AND GENOMIC MEDICINE Bacteria, UA Few None seen [facility] DEPARTMENT OF PATHOLOGY AND GENOMIC MEDICINE Yeast, UA None seen [facility] DEPARTMENT OF PATHOLOGY AND GENOMIC MEDICINE Yeast with None seen [facility] DEPARTMENT pseudohyphae, OF PATHOLOGY UA AND GENOMIC MEDICINE Hyaline casts, 4 /LPF [facility] DEPARTMENT OF PATHOLOGY AND GENOMIC MEDICINE Specimen Urine Performing Organization Address City/[facility] Phone Number [place] [phone] PATHOLOGY AND GENOMIC MEDICINE * Hemoglobin A1c (12/16/2017 5:19 PM SIDING APPLICATOR) Hemoglobin A1C 5.5 4.0 - 5.6 % [facility] DEPARTMENT Comment: OF PATHOLOGY HbA1c [...] Blood Performing Organization Address City/State/Zipcode Phone Number [place] [phone] [place] [address] PATHOLOGY AND GENOMIC MEDICINE * Lipase level (12/16/2017 1:59 PM SIDING APPLICATOR) Lipase 15 13 - 60 U/L [facility] DEPARTMENT OF PATHOLOGY AND GENOMIC MEDICINE Specimen Plasma specimen Performing Organization Address [facility]/State/Zipcode Phone Number [facility] DEPARTMENT OF [address] [place] [address] PATHOLOGY AND GENOMIC MEDICINE * CT Spine External Study (12/01/2017 12:34 PM CDT) Specimen Narrative Performed At This exam was not acquired at a Orthodox facility and has not been [facility] interpreted by a Orthodox Provider.The exam was imported into our imaging system for comparisons purposes. Performing Organization Address [facility]/Zipcode Phone Number [facility] [address] [place] [address] * MRI Spine External Study (12/01/2017 11:40 AM CDT) Specimen Narrative Performed At This exam was not acquired at a Orthodox facility and has not been [facility] interpreted by a Orthodox Provider.The exam was imported into our imaging system for comparisons purposes. Performing Organization Address [facility] Phone Number [facility] [address] [place] [address] * XR Spine External Study (12/01/2017 11:21 AM CDT) Only the most recent of 2 results within the time period is included. Specimen Narrative Performed At This exam was not acquired at a Orthodox facility and has not been [facility] interpreted by a Orthodox Provider.The exam was imported into our imaging system for comparisons purposes. 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
--- NOTE | 2018-10-19 10:47 | Diagnostic Imaging Report ---
Right hip, 2 views. History: Post op. Findings: Status post total right hip total arthroplasty with prosthetic components in anatomic alignment. Overlying post-surgical air is present. Advanced degenerative changes are noted involving the left hip. IMPRESSION: Status post right hip replacement in anatomic position. Signed by: Larry Reddy on 10/19/2018 10:44 AM
--- NOTE | 2018-10-19 13:30 | NUR ---
pt arrived to unit resp even and unlabored at this time, no c/o pain, when asked, pt able to make needs known, pt oriented to room and call light, pt bed in lowest position, pt family member at bedside, bed rails up x2, call light in reach.
[2018-10-19 14:00] VITALS: BP 131/83
[2018-10-19 14:08] VITALS: BP 131/83
--- NOTE | 2018-10-19 14:41 | NUR ---
patient voided at this time. 200ml of clear urine noted. Therapy in room at this time
[2018-10-19] MEDS ORDERED: ACETAMINOPHEN 1000 MG/100 ML IV ONE (14:42)
[2018-10-19] MEDS ORDERED: ONDANSETRON HCL INJ 2MG/ML 2ML 2 MG/ML VIAL ONE (14:42)
[2018-10-19] MEDS ORDERED: PROPOFOL IV EMULSION 10 MG/ML 20 ML VIAL ONE (14:42)
[2018-10-19] MEDS ORDERED: LIDOCAINE HCL 2% LOCAL INJ 5 ML SDV VIAL INJ ONE (14:42)
[2018-10-19] MEDS ORDERED: SEVOFLURANE INHAL SOLN 250 ML PEN BTL ONE (14:42)
[2018-10-19] MEDS ORDERED: ROCURONIUM BROMIDE 10 MG/ML 5ML VIAL ONE (14:42)
[2018-10-19] MEDS: ACETAMINOPHEN 1000 MG/100 ML IV SCH ×2 (15:19→18:00)
[2018-10-19] MEDS: CEFAZOLIN SOD 1 GM/NS 50ML 50 ML IV SCH ×2 (15:30→22:36)
--- NOTE | 2018-10-19 15:30 | NUR ---
pt up out of bed with PT. tolerated well.
--- NOTE | 2018-10-19 16:04 | Operative Report ---
DATE OF PROCEDURE: 10/19/2018 SURGEON: Tee Bronson MD CAN CLOSING MACHINE TENDER: Holden Lechuga, certified PA. PREOPERATIVE DIAGNOSIS: Osteoarthritis, right hip. POSTOPERATIVE DIAGNOSIS: Osteoarthritis, right hip. PROCEDURE: Right total hip arthroplasty. INDICATIONS: The patient is a 67-year-old gentleman, who has severe end-stage arthritis of both hips. He would like to proceed with a right total hip replacement first. He anticipates having his left hip done in a few months. I have reviewed the procedure, the implants, the recovery and the associated risks and benefits. All of his questions have been answered. He states he understands and wishes to proceed. DESCRIPTION OF PROCEDURE: The patient was brought to the operating room and placed under general anesthetic. He received prophylactic antibiotics and tranexamic acid in the holding area. He has had major back surgery and was not a candidate for any type of spinal anesthetic. He was positioned in the left lateral decubitus position. His right hip was prepped and draped in a sterile manner. A preoperative time-out was performed. A limited incision posterior approach was made to the right hip. Hemostasis was obtained with electrocautery. With the gluteal muscles were split in line with their fibers. A self-retaining Charnley retractor was placed. Care was taken to avoid injury to the sciatic nerve. The posterior capsule was carefully exposed. Further hemostasis was obtained with electrocautery. It was quite severely contracted with no internal rotation of the hip. The piriformis and posterior capsule were released. The hip was dislocated. An oscillating saw was used to resect the femoral head. Complete loss of articular cartilage was noted. Acetabular retractors were carefully placed. Large osteophytes around the socket were removed. There was really no labral remnant. The true floor of the acetabulum was established with a 46 mm reamer. The socket was then sequentially reamed up to 57 mm. This accomplished bleeding hemispherical cancellous bone. A Kristine Biomet 58 mm outer diameter OsseoTi socket was then impacted into place. Excellent fixation was obtained. I went ahead and augmented the fixation with a single 25 mm cancellous screw placed into the ilium. Marginal osteophytes were further removed with a curved osteotome. A portion of a 100 mL premixed pericapsular SALVADOR injection was placed around the socket. The hip was further irrigated with a shower tip pulsatile lavage. A highly cross-linked polyethylene liner with a 36 mm inner diameter was then impacted into place. Care was taken to make sure that there was no evidence of soft tissue interposition. The socket was packed with a moistly soaked lap sponge and then attention was directed towards the proximal femur. A box cutting osteotome and taper pin reamer were used to establish entry to the femoral canal. The Taperloc broaches were impacted. A size 15 stem had good canal fill and rotational stability for trial reduction. I elected to use a +3 mm femoral head. The trial implants were removed. The hip was further irrigated with a shower tip pulsatile lavage. The remainder of the SALVADOR injection was placed into the subcutaneous tissue. The implants were impacted into place and the ceramic head was seated onto the stem with a +3 trunnion. Final reduction was performed. The wound was further irrigated with the shower tip pulsatile lavage. The posterior capsule was carefully repaired with #2 Ethibond. A 500 mg of vancomycin powder was then sprinkled into the joint. The proximal tensor fascia and gluteal fascia were closed with interrupted #2 Ethibond. The skin was closed with subcuticular Vicryl, Mastisol, and Steri-Strips. A sterile Aquacel bandage was applied. The patient was returned to the supine position. He was extubated and transported to the recovery room in stable condition. Estimated blood loss was 75 mL. All needle and sponge counts were correct. Tee Bronson MD DR/SHIRLEY /[id number]
[2018-10-19 16:36] VITALS: BP 127/78
[2018-10-19] MEDS: SODIUM CHLORIDE 0.9% 1000ML 1,000 ML IV SCH (16:40)
[2018-10-19] MEDS: ASPIRIN 325 MG TAB PO SCH (16:40)
[2018-10-19] MEDS: CELECOXIB 100 MG CAP PO SCH (16:40)
[2018-10-19] MEDS ORDERED: FENTANYL CITRATE/PF 100MCG/2 ML INJ ONE (18:44)
[2018-10-19] MEDS ORDERED: MIDAZOLAM HCL 2 MG/2 ML VIAL ONE (18:44)
--- NOTE | 2018-10-19 19:00 | NUR ---
RECEIVED PATIENT IN BEDSIDE SHIFT REPORT. PATIENT RESTING IN BED AT THIS TIME. STATES PAIN IS 1-2/10. NO S&S OF DISTRESS NOTED. BED LOCKED IN LOWEST POSITION, SIDE RAILS UPX2, CALL LIGHT IN REACH.
--- NOTE | 2018-10-19 19:17 | NUR ---
Report given to oncoming nurse pt stable.
[2018-10-19 20:10] VITALS: BP 115/73
[2018-10-19 20:12] VITALS: BP 115/73
[2018-10-19] MEDS ORDERED: ZOLPIDEM TARTRATE 5 MG TAB PO PRN (21:00)
--- NOTE | 2018-10-19 22:50 | NUR ---
ASSISTED PATIENT TO RESTROOM. HIP PRECAUTIONS FOLLOWED. DRESSING REMAINS C/D/I. NO BUCKLING NOTED. PATIENT REPORTS STIFFNESS, BUT PAIN IS NOT ENOUGH TO REQUEST PAIN MEDICATION. ASSISTED PATIENT BACK TO BED, HIP ABDUCTER PILLOW AND FOOT PUMPS REAPPLIED. NO S&S OF DISTRESS NOTED.
[2018-10-20 00:05] VITALS: BP 118/75
[2018-10-20] MEDS: ACETAMINOPHEN 1000 MG/100 ML IV SCH ×2 (00:28→06:32)
[2018-10-20 04:51] VITALS: BP 119/76
[2018-10-20] MEDS: SODIUM CHLORIDE 0.9% 1000ML 1,000 ML IV SCH (05:20)
[2018-10-20 05:39] LABS: HEMATOCRIT 37.3 % (38.2-49.6)
[2018-10-20] MEDS: CEFAZOLIN SOD 1 GM/NS 50ML 50 ML IV SCH (05:56)
--- NOTE | 2018-10-20 06:44 | Consultation ---
DATE OF CONSULTATION: REASON FOR CONSULTATION: Postop medical management. HISTORY OF PRESENT ILLNESS: The patient is a 67-year-old gentleman, status post right hip arthroplasty for end-stage osteoarthritis. He has minimal pain in the right hip. The patient denies any chest pain, fever, chills, nausea, vomiting, headache, shortness of breath on review of systems. PAST MEDICAL HISTORY: Hypertension and hyperlipidemia. MEDICATIONS: See MAR. ALLERGIES: NONE. SOCIAL HISTORY: Nonsmoker. , still works full-time. FAMILY HISTORY: Alzheimer's and high blood pressure. PHYSICAL EXAMINATION: VITAL SIGNS: Temperature 97.3, pulse 76, blood pressure 118/75, sats 95% on room air. GENERAL: The patient is in no apparent distress, lying in bed, very jovial. NECK: Supple. No lymphadenopathy. LUNGS: Clear to auscultation bilaterally. CARDIOVASCULAR: Regular rate and rhythm. ABDOMEN: Good bowel sounds. Soft, nontender. EXTREMITIES: No clubbing or cyanosis. NEUROLOGIC: Nonfocal. ASSESSMENT AND PLAN: 1. Right hip arthroplasty with right hip pain. Continue postoperative care. 2. Anemia, check his CBC. 3. Hypertension. Continue with current monitoring and restart his blood pressure medications at discharge. 4. Hyperlipidemia. Restart his cholesterol medicines at discharge. Please see hospital chart for full details. MD BASIL Esparza/SHIRLEY /[id number]
--- NOTE | 2018-10-20 07:17 | NUR ---
RECEIVED PATIENT RESTING IN BED NO SIGNS OF DISTRESS. BED LOW, WHEELS LOCKED, SIDE RAILS X2. CALL LIGHT IN REACH WILL CONTINUE TO MONITOR PATIENT.
[2018-10-20 07:32] VITALS: BP 130/82
--- NOTE | 2018-10-20 07:49 | NUR ---
DR SMILEY OFFICE PREARRANGED FOLLOWING DISCHARGE PLAN OF: HOME HEALTH WITH HOME CARE PROVIDERS [phone] CONFIRMED WITH [employer] [employer] 3 IN ONE COMMODE, CPM AND ROLLING WALKER WITH WHEELS. PROVIDED BY [employer] [phone] MADISON DOMÍNGUEZ SIGNED AND ON CHART COPY LEFT WITH PATIENT GAVE CARD FOR QUESTIONS AND OR CONCERNS.
[2018-10-20] MEDS: CELECOXIB 100 MG CAP PO SCH (07:53)
[2018-10-20] MEDS: ASPIRIN 325 MG TAB PO SCH (07:53)
[2018-10-20] MEDS ORDERED: ONDANSETRON HCL 4 MG ORAL DISINTEGRATING TAB PO PRN (08:30)
[2018-10-20 08:36] VITALS: BP 130/82
[2018-10-20] MEDS ORDERED: ACETAMINOPHEN 1000 MG/100 ML IV PRN (09:00)
--- NOTE | 2018-10-20 09:17 | NUR ---
EDUCATED ABOUT IMM, SIGNED, FILED IN CHART, WITH COPY LEFT WITH FAMILY AT BEDSIDE.
--- NOTE | 2018-10-20 10:11 | NUR ---
PATIENT A/O X3, EVEN RESPIRATIONS ON RA. LUNG SOUNDS CLEAR TO AUSCULTATION. BOWEL SOUNDS ACTIVE. RIGHT HIP AQUACELL DRESSING CLEAN, DRY, AND INTACT. RIGHT HAND 20 GAUGE IV SL. PATIENT AMBULATES WITH WALKER AND STANDBY ASSIST. VS STABLE. CALL LIGHT IN REACH WILL CONTINUE TO MONITOR PATIENT.
--- NOTE | 2018-10-20 11:40 | NUR ---
REMOVED PATIENTS IV CATHETER TIP INTACT AND PRESSURE DRESSING APPLIED.
--- NOTE | 2018-10-20 12:01 | NUR ---
PATIENT DISCHARGED FROM FACILITY. PATIENT GATHERED ALL PERSONAL BELONGINGS, DISCHARGE INSTRUCTIONS AND FOLLOW UP INFORMATION. LEFT UNIT IN WHEELCHAIR AND WENT HOME VIA PRIVATE AUTO.
[2018-10-20] MEDS ORDERED: CELECOXIB 200 MG CAP PO SCH (17:00)
== END 2018-10-20 12:02 | disposition home health service (06) | DRG 470 ==
LOC: OR 06:27 → PACU V 09:00 → MED/SURG 13:19
PROVIDERS: ADMIT Specialist; ATTEND Specialist
PROC: 0SR904A Replacement of Right Hip Joint with Ceramic on Polyethylene Synthetic Substitute, Uncemented, Open Approach (ICD-10-PCS; principal; 2018-10-19 08:00)
DX: M16.0 Bilateral primary osteoarthritis of hip (principal); E78.5 Hyperlipidemia, unspecified; I10 Essential (primary) hypertension; M99.03 Segmental and somatic dysfunction of lumbar region; D64.9 Anemia, unspecified
CPT/HCPCS: 36415; 71046; 72170; 85014; 85018; 85025; 86850; 86900; 86920; 93005; C1713; J0171; J0690; J1100; J1885; J2001; J2250; J2405; J2795; J3010; J3370; J7030; J7040

== ENCOUNTER 2019-12-12 07:17 | Observation (INO) | payer MEDICARE, OTHER ==
[2019-12-08 11:59] LABS: BASOPHILS # (AUTO) 0.1 (0.0-0.1); BASOPHILS % 0.6 % (0.0-1.0); EOSINOPHILS # (AUTO) 0.1 (0.0-0.4); EOSINOPHILS % 0.8 % (0.0-6.0); HEMATOCRIT 46.4 % (38.2-49.6); HEMOGLOBIN 14.8 g/dL (14.0-18.0); LYMPHOCYTES % 24.7 % (18.0-39.1); MEAN CORPUSCULAR HEMOGLOBIN 27.4 pg (28-32); MEAN CORPUSCULAR HGB CONC 31.9 g/dL (31-35); MEAN CORPUSCULAR VOLUME 85.9 fL (81-99); MONOCYTES # (AUTO) 0.5 (0.2-0.8); MONOCYTES % 6.4 % (4.4-11.3); NEUTROPHILS # (AUTO) 5.3 (2.1-6.9); NEUTROPHILS % 67.1 % (38.7-80.0); PLATELET COUNT 216 x10e3/uL (140-360); RED CELL DISTRIBUTION WIDTH 14.2 % (11.7-14.4)
--- NOTE | 2019-12-08 12:39 | Diagnostic Imaging Report ---
Chest, 2 views, 12/08/2019. History: Preop, left hip surgery. Comparison: None available. Findings: The cardiomediastinal silhouette and pulmonary vasculature are within normal limits. The lungs are clear without evidence of consolidation or pleural effusion. Surgical hardware is seen in the lower thoracic and upper lumbar spine. There are no acute osseous or soft tissue abnormalities. Impression: No acute cardiopulmonary abnormality. Signed by: Larry Reddy on 12/08/2019 12:36 PM
[~2019-12-12] VITALS: Ht 185.4 cm; Wt 92.1 kg
[~2019-12-12 07:17] MED LIST changes: +BENAZEPRIL HCL10 MG PO; +BUPROPION HCL100 MG PO; +CELEBREX100 MG PO
[2019-12-12] MEDS ORDERED: TRANEXAMIC ACID 1,000 MG/10 ML ML ONE (08:00)
[2019-12-12] MEDS ORDERED: ROPIVACAINE 246.25 MG, EPINEPHRINE HCL 1:1000 1ML 0.5 MG, CLONIDINE HCL 0.08 MG, KETORO... INJ ONE ×5 (08:00)
[2019-12-12] MEDS ORDERED: VANCOMYCIN HCL 1,000 MG ONE (08:00)
[2019-12-12] MEDS ORDERED: SODIUM CHLORIDE 0.9% 500ML 500 ML ONE (08:00)
[2019-12-12] MEDS ORDERED: BUPIVACAINE 7.5MG/ML /DEXTROSE 82.5MG/ML 2 ML AMP INJ ONE (08:01)
[2019-12-12] MEDS ORDERED: CELECOXIB 200 MG CAP ONE (08:09)
[2019-12-12] MEDS ORDERED: GABAPENTIN 300 MG CAP ONE (08:10)
[2019-12-12] MEDS ORDERED: CEFAZOLIN SOD 1 GM/NS 50ML 100 ML IV ONE (08:10)
[2019-12-12] MEDS ORDERED: DEXAMETHASONE SOD PHOS 10 MG/1 ML VIAL ONE (08:10)
[2019-12-12] MEDS ORDERED: DOCUSATE SODIUM 100 MG CAP PO PRN (10:15)
[2019-12-12] MEDS ORDERED: ONDANSETRON HCL INJ 2MG/ML 2ML 2 MG/ML VIAL IV PRN (10:15)
[2019-12-12] MEDS ORDERED: KETOROLAC TROMETHAMINE 30 MG/ML VIAL IV PRN (10:15)
[2019-12-12] MEDS ORDERED: DIPHENHYDRAMINE HCL INJ 50 MG/ML VIAL IV PRN (10:15)
[2019-12-12] MEDS ORDERED: ZOLPIDEM TARTRATE 5 MG TAB PO PRN (10:15)
[2019-12-12] MEDS ORDERED: HYDROCODONE/APAP 5MG-325MG TAB PO PRN (10:15)
[2019-12-12] MEDS ORDERED: ACETAMINOPHEN 650 MG SUPP PR PRN (10:15)
--- NOTE | 2019-12-12 11:24 | Operative Report ---
DATE OF PROCEDURE: 12/12/2019 SURGEON: Tee Bronson MD CHINESE TEACHER: Holden Lechuga PA-C. PREOPERATIVE DIAGNOSIS: Osteoarthritis, left hip. POSTOPERATIVE DIAGNOSIS: Osteoarthritis, left hip. PROCEDURE: Left total hip arthroplasty. INDICATIONS: The patient is a 69-year-old gentleman who has end-stage arthritis of his left hip. He is status post a right total hip replacement over the summer. He would now like to have his left hip replaced. The risks and benefits have been reviewed. The recovery has been discussed. All of his questions have been answered. He states he understands and wishes to proceed. DESCRIPTION OF PROCEDURE: The patient was brought to the operating room and placed under general anesthetic. He has had multiple back surgeries and declined any type of spinal anesthetic. He was positioned in the right lateral decubitus position. His left hip was prepped and draped in a sterile manner. He received prophylactic antibiotics and tranexamic acid in the holding area. A preoperative time-out was performed. A posterior approach was made to the left hip. Hemostasis was obtained with electrocautery. The deep fascia was incised. A deep self-retaining Charnley retractor was placed. The posterior capsule was carefully exposed. Further hemostasis was obtained with electrocautery. A portion of the short external rotators and the posterior capsule were released. The hip was dislocated. Complete loss of articular cartilage was noted. An oscillating saw was used to resect the femoral head. Acetabular retractors were then carefully placed. A large anterior osteophyte was noted and removed. Labral remnants were excised. The true floor of the acetabulum was then established with a 46 mm reamer. The socket was then sequentially reamed up to 57 mm. This accomplished bleeding hemispherical cancellous bone. The hip was thoroughly irrigated with a shower tip pulsatile lavage on multiple occasions during this portion of the case. A Kristine/Biomet 58 mm OsseoTi socket was then impacted into place. Good fixation was felt to be obtained. Fixation was augmented with a single 25 mm screw placed into the ilium. A large inferior and additional anterior osteophytes were excised with a curved osteotome. A highly cross-linked polyethylene liner with a 36 mm inner diameter was then impacted into place. Care was taken to make sure that there was no evidence of soft tissue interposition. The socket was then packed with a moistly soaked lap sponge and attention was directed towards the proximal femur. A box cutting osteotome and taper pin reamer were used to establish entry to the femoral canal. The Kristine/Biomet taper lock broaches were impacted. As with the right side, a size 15 stem had good canal fill and stability. Trial reductions were performed. I felt that a +3 mm head provided appropriate soft tissue balancing, christianity of limb length and stability through a full arc of motion. The trial implant was removed. The hip was further irrigated with a shower tip pulsatile lavage. A 100 mL premixed pericapsular SALVADOR injection was placed into the surrounding soft tissue. The implant was seated. The neck of the stem was thoroughly cleaned and dried prior to seating the ceramic femoral head with a +3 neck. A final reduction was performed. The posterior capsule was carefully repaired with interrupted #2 Ethibond. The piriformis was reapproximated with #2 Ethibond. A 500 mg of vancomycin powder was sprinkled into the deep wound. The fascia was closed with interrupted #2 Ethibond. The skin was closed with subcuticular Vicryl and berna. A sterile Aquacel bandage was applied. The patient was returned to the supine position, extubated and transported to the recovery room in stable condition. Estimated blood loss was 100 mL. All needle and sponge counts were correct. Tee Bronson MD DR/SHIRLEY /[id number]
--- NOTE | 2019-12-12 11:41 | Diagnostic Imaging Report ---
EXAMINATION: PELVIS AP 1-2 VIEWS INDICATION: Postop COMPARISON: Pelvic radiographs of 10/19/2018 FINDINGS: AP postoperative pelvic radiograph demonstrates immediate postoperative findings of left total hip replacement. Alignment is anatomic. No unexpected fracture. Hardware intact. Subcutaneous postoperative soft tissue emphysema. Surgical skin berna in place. Anatomic alignment of prior right total hip replacement. IMPRESSION: Anatomic alignment status post interval left total hip replacement. Signed by: Evonne Gutierres MD on 12/12/2019 11:38 AM
[2019-12-12] MEDS ORDERED: PHENYLEPHRINE HCL 1% 10 MG/ML VIAL ONE (12:28)
[2019-12-12] MEDS ORDERED: SEVOFLURANE INHAL SOLN 250 ML PEN BTL ONE (12:28)
[2019-12-12] MEDS ORDERED: GLYCOPYRROLATE INJ 0.2 MG/ML VIAL ONE (12:28)
[2019-12-12] MEDS ORDERED: DEXAMETHASONE SOD PHOS INJ 4 MG/ML VIAL ONE (12:28)
[2019-12-12] MEDS ORDERED: ONDANSETRON HCL INJ 2MG/ML 2ML 2 MG/ML VIAL ONE (12:28)
[2019-12-12] MEDS ORDERED: NEOSTIGMINE 1 MG/ML 10ML VIAL ONE (12:28)
[2019-12-12] MEDS ORDERED: ROCURONIUM BROMIDE 10 MG/ML 5ML VIAL IV ONE (12:28)
[2019-12-12] MEDS ORDERED: PROPOFOL IV EMULSION 10 MG/ML 20 ML VIAL ONE (12:28)
[2019-12-12] MEDS ORDERED: LIDOCAINE HCL 2% LOCAL INJ 5 ML SDV VIAL INJ ONE (12:28)
[2019-12-12 12:30] VITALS: BP 96/70
--- NOTE | 2019-12-12 12:45 | NUR ---
Received report from PACU nurse at 1236. Patient arrived to room at 1243. Patient has at bedside. Patient and both gave history. Patient AOx3, IV C/D/I. Patient and oriented to room, procedures, and plan of care. Patient call light within reach, bed in lowest position. Patient and verbalized understanding and had no other issues or complaints.
[2019-12-12 13:09] VITALS: BP 94/63
[2019-12-12] MEDS ORDERED: SODIUM CHLORIDE 0.9% 1000ML 1,000 ML IV SCH (13:30)
[2019-12-12] MEDS: HYDROCODONE/APAP 7.5MG-325MG 1 EA TAB PO PRN ×2 (13:57→20:30)
--- NOTE | 2019-12-12 16:14 | NUR ---
DR SMILEY OFFICE PREARRANGED FOLLOWING DISCHARGE PLAN OF:HOME [id number] [facility] [id number] [facility] WITH SIGNATURE CONFIRMED WITH [phone] DME NONE NEEDED THIS IS HIS SECOND SURGERY ENRIQUEZ SIGNED AND ON CHART COPY LEFT WITH PATIENT GAVE CARD FOR QUESTIONS AND OR CONCERNS.
[2019-12-12 16:44] VITALS: BP 108/72
[2019-12-12] MEDS: CEFAZOLIN SOD 1 GM/NS 50ML 50 ML IV SCH (17:05)
[2019-12-12] MEDS: ASPIRIN 325 MG TAB PO SCH (17:05)
[2019-12-12] MEDS: CELECOXIB 200 MG CAP PO SCH (17:05)
[2019-12-12] MEDS ORDERED: SODIUM CHLORIDE 0.9% 50ML 50 ML ONE (17:06)
[2019-12-12 20:00] VITALS: BP 113/73
[2019-12-12 21:00] VITALS: BP 113/73
[2019-12-13] VITALS: BP 105/73
[2019-12-13] MEDS: CEFAZOLIN SOD 1 GM/NS 50ML 50 ML IV SCH ×2 (00:20→08:29)
[2019-12-13 04:00] VITALS: BP 107/72
[2019-12-13 05:05] LABS: HEMOGLOBIN 12.2 g/dL (14.0-18.0)
[2019-12-13] MEDS: HYDROCODONE/APAP 7.5MG-325MG 1 EA TAB PO PRN (05:56)
--- NOTE | 2019-12-13 06:12 | Consultation ---
DATE OF CONSULTATION: REASON FOR CONSULTATION: Postop medical management. HISTORY OF PRESENT ILLNESS: The patient is a gentleman, who is status post with left hip arthroplasty. He is doing well postoperatively with minimal pain. REVIEW OF SYSTEMS: He denies any chest pain, fever, chills, nausea, vomiting, headache, shortness of breath, or dizziness. PAST MEDICAL HISTORY: Significant for hypertension and hyperlipidemia. MEDICATIONS: See MAR. ALLERGIES: NONE. SOCIAL HISTORY: Nonsmoker. He is . He works full times for [employer]. FAMILY HISTORY: Alzheimer's and high blood pressure. PHYSICAL EXAMINATION: VITAL SIGNS: Temperature 99.0, pulse 76, blood pressure 105/73, sats 97% on room air. GENERAL: In no apparent distress, lying in bed. NECK: Supple. CARDIOVASCULAR: Regular rate and rhythm. LUNGS: Clear to auscultation bilaterally. ABDOMEN: Good bowel sounds. Soft and nontender. EXTREMITIES: No clubbing or cyanosis. NEUROLOGIC: Nonfocal. ASSESSMENT/PLAN: 1. Left hip pain. We will continue with physical therapy and postoperative pain control, but he is doing very well. 2. Anemia. Check a CBC. 3. Hyperlipidemia. We will restart his cholesterol medicine. 4. Hypertension. We will continue to monitor since his blood pressure is doing very well and he was able to manage it as an outpatient without medication. Please see hospital chart for full details. MD BASIL Esparza/SHIRLEY /[id number]
--- NOTE | 2019-12-13 07:08 | NUR ---
Bedside report and walking rounds completed with oncoming nurse. Patient in bed with call light within reach. No issues or concerns noted.
[2019-12-13 07:58] VITALS: BP 116/78
[2019-12-13 08:02] VITALS: BP 116/78
[2019-12-13] MEDS: ASPIRIN 325 MG TAB PO SCH (08:29)
[2019-12-13] MEDS: CELECOXIB 200 MG CAP PO SCH (08:29)
[2019-12-13] MEDS ORDERED: BUPROPION HCL 100 MG TAB PO SCH (09:00)
[2019-12-13] MEDS ORDERED: ACETAMINOPHEN 1000 MG/100 ML IV PRN (10:15)
[2019-12-13 11:54] VITALS: BP 113/77
--- NOTE | 2019-12-13 13:04 | NUR ---
Received discharge order from Dr. Bronson. Patient was given detailed discharge instructions, where both he and his were present and both verbalized understanding. Patient was given strict follow up instructions. Patient verbalized understanding. Patient read back all follow up and discharge teaching. Patient IV removed at 1300 and covered with a C/D/I dressing. Patient had no other issues or complaints. Addendum: 12/13/19 at 1335 by Christy Gloria RN Patient wheeled to car at 1321 and assisted into front seat with seat belt assistance. No other issues or complaints.
[2019-12-13] MEDS ORDERED: ONDANSETRON HCL 4 MG ORAL DISINTEGRATING TAB PO PRN (13:30)
[2019-12-13] MEDS ORDERED: CRESTOR 10MG PO SCH (21:00)
--- OUTSIDE RECORDS SUMMARY | 2019-12-15 18:42 | XMS REPORT | Continuity of Care Document ---
Author Author [facility] t Organization [facility] Address [address] [place] [address] Phone Unavailable Care Team Providers Care Tentering Machine Off Bearer Name Role Phone TELLO PHILIP, JOSE J PCP OTIS SARKAR Attphys Unavailable Ralph Orr PA-C Attphys Meagan Pat Attphys Jadiel RN, Levon Attphys Unavailable Lj Singer MD Attphys JOSE J JAVED Admphys Unavailable OTIS SARKAR Admphys Unavailable Payers Payer Name Policy Type Policy Number Effective Date Expiration Date S she [employer]HC MEDICARE[employer]HC GROUP MEDICARE [id number] 2019-PresentPPO [id number] 2019 00:00:00 Tk Mo [facility] [id number] 2006 00:00:00 [facility] Problems Condition Name Condition Details Condition Category Status Onset Date Resolution Date Last Treatment Date Treating Clinician Comments Source Pseudarthrosis following spinal fusion Pseudarthrosis follow ing spinal fusion Disease Active 2018-02-19 00:00:00 Tk Mo Syncope Syncope Disease Active 2017-12-16 00:00:00 Tk Mo Allergies, Adverse Reactions, Alerts Allergy Name Allergy Type Status Severity Reaction(s) Onset Date Inacti ve Date Treating Clinician Comments Source No Known Allergies DA Active U 2017-12-01 00:00:00 [facility] No Known Allergies DA Active U 2010-05-01 00:00:00 [facility] Family History Family Member Diagnosis Comments Start Date Stop Date Source Natural mother Hypertension Tk Mo Social History Social Habit Start Date Stop Date Quantity Comments Source Sex Assigned At [facility] Exposure to SARS-CoV-2 (event) Not sure Tk Mo Tobacco use and exposure 2019-11-17 00:00:00 2019-11-17 00:00:00 Fredi garcia used Tk Mo Alcohol intake 2019-11-17 00:00:00 2019-11-17 00:00:00 Current drinker of alcohol (finding) Tk Mo Alcohol Comment 2018-01-29 00:00:00 2018-01-29 00:00:00 occasional Tk Mo Smoking Status Start Date Stop Date Source Never smoker Tk hooper Medications Ordered Medication Name Filled Medication Name Start Date Stop Da te Current Medication? Ordering Clinician Indication Dosage Frequency Signature (SIG) Comments Components Source rosuvastatin (CRESTOR) 20 MG tablet 2019-11-08 14:38:34 Yes 20mg QD Take 20 mg by mouth nightly. Tk hooper polyethylene glycol (MIRALAX) 17 gram packet 2019-11-08 14:38:25 Yes 17g Q24H Take 17 g by mouth daily as needed for constipation. Tk Mo multivitamin (THERAGRAN) tablet 2019-11-08 14:38:14 Yes .5{tbl} Q.5D Take 0.5 tablets by mouth 2 (two) times a day. Tk Mo eszopiclone (LUNESTA) 3 mg tablet 2019-11-08 14:37:38 Yes 3mg QD Take 3 mg by mouth nightly as needed for sleep. Take immediately before bedtime Tk Mo coenzyme Q10 (CO Q-10) 200 mg capsule 2019-11-08 14:37:31 Y es 200mg QD Take 200 mg by mouth nightly. Tk Justin thodi aspirin (ECOTRIN) 81 MG enteric coated tablet 2019-11-08 14:37:1 2 Yes 81mg QD Take 81 mg by mouth nightly. Tk Mo gabapentin (NEURONTIN) 300 mg capsule 2018-11-15 00:00 :00 2019-11-15 23:59:00 No 300mg Q.[id number] Take 1 capsule (300 mg total) by mouth 3 (three) times a day. Tk Mo metoprolol tartrate (LOPRESSOR) 25 mg tablet 2018-06-06 00:00:00 Yes TAKE 1/2 TBALET BY MOUTH TWICE A DAY Tk Mo midodrine (PROAMATINE) 5 MG tablet 2018-05-27 00:00:00 Yes 5mg Q.5D Take 5 mg by mouth 2 (two) times a day. Benjamin Mo cholecalciferol, vitamin D3, (VITAMIN D3) 1,000 unit tablet 2018-04-02 14:19:44 Yes 1000U QD Take 1,000 Units by mouth nig htly. Tk Mo HYDROcodone-acetaminophen (NORCO) 10-325 mg per tablet 2018-04-02 14:19:44 Yes 1{tbl} Q8H Take 1 tablet b y mouth every 8 (eight) hours as needed for moderate pain. Tk Mo omega 9-fiv-scx-fish oil (FISH OIL) 100-160-1,000 mg capsule 2018-04-02 14:19:44 Yes 1{capsule} QD Take 1 capsule by mouth n ightly. Tk Mo JJCLWOS-TNSVVOPCQ-VCRG ORAL 2018-04-02 14:19:44 Yes 1{tbl} QD Take 1 tablet by mouth every morning. Tk [place] ethodist Amlodipine Besylate/Benazepril (Amlodipine-Benazepril 5-10 Mg) 1 Each Capsule Amlodipine Besylate/Benazepril (Amlodipine-Benazepril 5-10 Mg) 1 Each Capsule Yes Daily [facility] Calcium/Magnesium/Zinc (Ukavyii-Cbkvaznok-Fivi Tab) 1 Each Tablet Calcium/Magnesium/Zinc (Tuuvhmf-Yynoqrubq-Cbrf Tab) 1 Each Tablet Yes Daily [facility] Cholecalciferol (Vitamin D3) (D3 Dots) 2,000 Unit Tabl et Cholecalciferol (Vitamin D3) (D3 Dots) 2,000 Unit Tablet Yes 1000 Daily [facility] Eszopiclone (Lunesta) 3 Mg Tablet Eszopiclone (Lunesta) 3 Mg Tablet Yes Daily [facility] Multivitamin (Multi-Vitamin Daily) 1 Each Tablet Multi vitamin (Multi-Vitamin Daily) 1 Each Tablet Yes Daily [facility] Wilson-3 Fatty Acids/Fish Oil (Fish Oil 1,000 Mg Capsul e) 1 Each Capsule Wilson-3 Fatty Acids/Fish Oil (Fish Oil 1,000 Mg Capsule) 1 Each Capsule Yes Daily [facility] Rosuvastatin Calcium (Crestor) 10 Mg Tab Rosuvastatin Calcium (Crestor) 10 Mg Tab Yes 20 Daily [facility] Ubidecarenone (Coq-10) 30 Mg Capsule Ubidecarenone (Coq-10) 30 Mg C apsule Yes 200 Daily [facility] Vital Signs Vital Name Observation Time Observation Value Comments Source Systolic blood pressure 2019-11-14 15:20:00 135 mm[Hg] Tk Mo Diastolic blood pressure 2019-11-14 15:20:00 84 mm[Hg] Tk Mo Heart rate 2019-11-14 15:20:00 82 /min Tk Mo Respiratory rate 2019-11-14 15:20:00 17 /min Que Mo Oxygen saturation in Arterial blood by Pulse oximetry 2019-02 15:20:00 97 /min Tk Mo Body temperature 2019-11-14 12:00:00 36.28 Isabelle Hous colleen Shinto Body height 2019-11-14 12:00:00 185.4 cm Tk Mo Body weight 2019-11-14 12:00:00 93.1 kg Tk Mo BMI 2019-11-14 12:00:00 27.08 kg/m2 Tk Mo Procedures Procedure Date / Time Performed Performing Clinician Sourc e FL MYELOGRAM 2+REG INCL INJ W S&I 2019-11-16 14:20:[address] POST MYELOGRAM LUMBAR 2019-11-14 14:17:[address] POST MYELOGRAM THORACIC 2019-11-14 14:16:41 Segundo Pat HC COMPLETE BLD COUNT W/AUTO DIFF 2019-11-14 10:15:00 Rupert Yost BASIC METABOLIC PANEL 2019-11-14 10:15:00 Adan Yost PROTHROMBIN TIME WITH INR 2019-11-14 10:15:00 Adan Yost PARTIAL THROMBOPLASTIN TIME (PTT) 2019-11-14 10:15:00 Rupert Yost ESTIMATED GFR 2019-11-14 10:15:00 Adan Yost Que macias Shinto XR SPINE SCOLIOSIS 2-3 VIEWS 2019-09-09 12:01:18 Bonifacio Orr XR SPINE SCOLIOSIS 2-3 VIEWS 2019-04-15 10:54:24 Bonifacio Orr XR SPINE SCOLIOSIS 2-3 VIEWS 2019-01-04 11:16:17 Bonifacio Orr Total replacement of right hip joint 2018-10-19 00:00:00 OTIS SARKAR [facility] X-ray of chest, two views 2018-10-18 00:00:00 OTIS SARKAR [facility] Plan of Care Planned Activity Planned Date Details Comments Source Future Scheduled Test 2019-09-10 00:00:00 INFLUENZA VACCINE [code = INFLUENZA VACCINE] Tk Mo Future Scheduled Test 2015-05-11 00:00:00 SHINGLES VACCINES (#2) [code = SHINGLES VACCINES (#2)] Tk Mo Future Scheduled Test 2001-11-27 00:00:00 COLONOSCOPY SCREEN ING [code = COLONOSCOPY SCREENING] Tk Mo Encounters Start Date/Time End Date/Time Encounter Type Admission Type [facility] Care Department Encounter ID Source 2019-11-17 00:00:00 2019-11-17 00:00:00 Outpatient [facility] [id number] Tk Mo 2019-11-14 00:00:00 2019-11-14 00:00:00 Outpatient VINICIO PAT [facility] [id number] Tk Mo 2019-11-14 00:00:00 2019-11-14 00:00:00 Outpatient VINICIO PAT [facility] [id number] Tk Mo 2019-11-14 00:00:00 2019-11-14 00:00:00 Outpatient VINICIO PAT [facility] [id number] Tk Mo 2019-11-03 00:00:00 2019-11-03 00:00:00 Outpatient [facility] [id number] [facility] 2019-09-09 00:00:00 2019-09-09 00:00:00 Outpatient [facility] [id number] [facility] 2019-09-09 00:00:00 2019-09-09 00:00:00 Outpatient [facility] [id number] [facility] 2019-04-15 00:00:00 2019-04-15 00:00:00 Outpatient [facility] [id number] [facility] 2019-04-15 00:00:00 2019-04-15 00:00:00 Outpatient [facility] [id number] [facility] 2018-10-19 09:00:00 2018-10-20 12:02:00 Discharged Inpatient 3 OTIS SARKAR [facility] [id number] [facility] Results Test Description Test Time Test Comments Results Result Comments Source PELVIS AP 1-2 VIEWS 2019-12-12 11:37:00 [facility] 1950 Sex: M [facility] [address] [place] [address] Patient Name: SHERYL RIZOZ MR #: [id number] : 1950 Age/Sex: 69/M Req #: [id number] [facility] Physician: Ordered by: OTIS SARKAR MD Report #: [id number] Location: OR Room/Bed: Procedure: [id number] DX/PELVIS AP 1-2 VIEWS Exam Date: 12/12/19 Exam Time: 1033 REPORT STATUS: Signed EXAMINATION: PELVIS AP 1-2 VIEWS INDICATION: Postop COMPARISON: Pelvic radiographs of 10/19/2018 FINDINGS: AP postoperative pelvic radiograph demonstrates immediate postoperative findings of left total hip replacement. Alignment is anatomic. No unexpected fracture. Hardware intact. Subcutaneous postoperative soft tissue emphysema. Surgical skin berna in place. Anatomic alignment of prior right total hip replacement. IMPRESSION: Anatomic alignment status post interval left total hip replacement. Signed by: Edilson Copeland MD on 12/12/2019 11:38 AM Dictated By: EDILSON COPELAND MD 37 Transcribed By: TIM on 12/12/191137 COPY TO: OTIS SARKAR MD CHEST 2 VIEWS 2019-12-08 12:36:00 [facility] : 1950 Sex: M [place] [address] Patient Name: SHERYL RIZZO MR #: [id number] : 1950 Age/Sex: 69/M Req #: [id number] [facility] Physician: Ordered by: OTIS SARKAR MD Report #: [id number] Location: OR Room/Bed: Procedure: [id number] DX/CHEST 2 VIEWS Exam Date: 12/08/19 Exam Time: 1200 REPORT STATUS: Signed Chest, 2 views, 12/08/2019. History: Preop, left hip surgery. Comparison: None available. Findings: The cardiomediastinal silhouette and pulmonary vasculature are within normal limits. The lungs are clear without evidence of consolidation or pleural effusion. Surgical hardware is seen in the lower thoracic and upper lumbar spine. There are no acute osseous or soft tissue abnormalities. Impression: No acute cardiopulmonary abnormality. Signed by: Larry Reddy on 12/08/2019 12:36 PM Dictated By: LARRY REDDY MD 1236 Transcribed By: TIM on 12/08/19 1236 COPY TO: OTIS SARKAR MD FL Myelogram 2+Reg Incl Inj W S&I 2019-11-30 09:25:17 Hm Interface, Radiology Results 11/30/2019 9:28 AM CDTEXAMINATION: FL MYELOGRAM 2 REG INCL INJ W S&I REASON FOR EXAMINATION: M96.0 Pseudarthrosis after fusion or arthrodesis, M54.5 Low back pain, painCOMPARISON: NoneTECHNIQUE: FL MYELOGRAM 2 REG INCL INJ W S&IM96.0 Pseudarthrosis after fusion or arthrodesis, M54.5 Low back pain, painTECHNIQUE:After informed consent was obtained, the patient was placed prone on the fluoroscopy table.The back was prepped and draped in sterile manner. 1% buffered lidocaine was used for local anesthesia.Under fluoroscopic guidance, a 20 -gauge needle was advanced percutaneously into the spinal subarachnoid space at L4 until free-flowing CSF returned from the hub.Subsequently,17 -mL of Omnipaque 300 was instilled into the thecal sac. The needle was removed. Multiple myelographic projections of the thoracic spine were obtained. The patient tolerated procedure well with no immediate complication.Conscious Sedation: NoneFINDINGS: Contrast was seen within the thoracic spine. Orthopedic hardware seen in the lower thoracic and lumbar spine. More detailed discussion will be given on postmyelogram CT.IMPRESSION:1. Status post thoracic myelogram.LUMBAR MYELOGRAM:After informed consent was obtained, the patient was placed prone on the fluoroscopy table.The back was prepped and draped in sterile manner. 1% buffered lidocaine was used for local an esthesia.Under fluoroscopic guidance, a 20 -gauge needle was advanced percutaneously into the spinal subarachnoid space at L4 until free-flowing CSF returned from the hub.Subsequently,17 -mL of Omnipaque 300 was instilled into the thecal sac. The needle was removed. Multiple myelographic projections of the lumbar spine were obtained. The patient tolerated procedure well with no immediate complication.Conscious Sedation: NoneFINDINGS: Contrast was seen within the lumbar spine.. Orthopedic hardware seen in the lower thoracic and lumbar spine. More detailed discussion will be given on postmyelogram CT.IMPRESSION:1. Status POST LUMBAR MYELOGRAM.Fluoroscopy time: 4.5 minutes number of fluoroscopic images obtained: 16Total Dose 260.2 [id number] [place] [facility] - XR L-SPINE 2/3 VIEWS 2019-11-22 19:24:00 FAX: Liban Nation MD [phone] [place]: [place] St: PRE FAX: Prabhu Mary [phone] Name: SHERYL RIZZO [facility] FSED : 1950 Age/S: 68/M [address] Unit #: [id number] Loc: [facility] [address] Phys: Prabhu Mary MD [place], [place] [address] Acct: [id number] Dis Date: Status: PRE ER PHONE #: Exam Date: 11/22/2019 1909 FAX #: Reason: back pain EXAMS: CPT CODE: [id number] XR L-SPINE 2/3 VIEWS 03507 EXAM: Lumbar spine, 4 views; INFORMATION: Back pain; FINDINGS: There is extensive orthopedic hardware after posterior fusion of the entire lumbar spine and the lower thoracic spine, including T9-T12. This is been accomplished with longitudinal rods and bilateral transpedicular screws. A metallic cage spacer is seen across the vertebral bodies 1, 2 and 3. Hardware is well-positioned; no evidence of infection or loosening. Extensive new bone formation is seen along the posterior elements of the lumbar spine. The patient is also status post laminectomy at L4 and L5. Vertebral bodies are otherwise intact; no evidence of fracture. Paravertebral soft tissues are unremarkable. There is significant narrowing of the hip joints with subchondral sclerosis. IMPRESSION: 1. No evidence of acute osseous trauma. 2. No evidence of osteomyelitis. 3. Extensive orthopedic hardware after posterior fusion of the lower thoracic and the entire lumbar spine. 4. Advanced osteoarthritis of both hip joints. Location code: [facility] at 1924 Reported and signed by: Sandip Spain M.D. CC: Liban Zurita M.D.; Prabhu Mary MD Technologist: Quincy Massey Trnscrd Date/Time/By: 11/22/2019 (1923) : By: LeeGRW Orig Print D/T: S: 11/22/2019 (1926) [address] Post Myelogram Thoracic 2019-11-14 17:14:26 H m Interface, Radiology Results 11/14/2019 5:17 PM CDTEXAMINATION: CT POST MYELOGRAM THORACICCLINICAL HISTORY: M96.0 Pseudarthrosis after fusion or arthrodesis, M54.5 Low back pain, painCOMPARISON: Thoracic spine CT February 28, 2018.TECHNIQUE: Axial postintrathecal contrast enhanced images of the thoracic spine were obtained with coronal and sagittal MIP reconstructed imaging. CT imaging was performed with iterative reconstruction technique and/or automated exposure control to reduce radiation dose.FINDINGS:There are 12 rib-bearing thoracic type vertebral bodies.Straightening of the normal thoracic kyphosis. Alignment is maintained.Superior margin of a T9-S1 posterior fusion construct is demonstrated with bilateral transpedicular screws fixated by vertically oriented rods without evidence of hardware failure. The superior margin of L1 and L2 corpectomy with strut graft is identified with solid interbody fusion to the T12 vertebral body.Diffuse osseous demineralization. T1 superior endplate height loss when compared to prior. There is also subtle height loss of the L3 superior endplate that is not significantly changed from 2019.Multilevel shallow protrusions about the thoracic spine mildly effacing the ventral subarachnoid space and contouring the ventral cord without significant central canal or foraminal narrowing.Disc osteophyte complexes about the visualized lower cervical spine flattening the ventral cord and contributing to at least same pattern of central canal narrowing.Soft tissues are without acute findings. There are small left greater than right pleural effusions with overlying atelectasis.Chronic left posterior 11th and 12th rib fractures.IMPRESSION:T1 superior endplate height loss since the most recent prior from 2019. This is suspected degenerative however further investigation with noncontrasted thoracic MR is recommended if there is concern for acute component.Multilevel shallow disc protrusions mildly contouring the ventral cord without significant central canal or foraminal narrowing about the thoracic spine.Status post T9-S1 posterior fusion construct with partially visualized L1 and L2 corpectomy and strut graft placement without identifiable hardware failure.[id number] [place] [facility] CT Post Myelogram Lumbar 2019-11-14 17:02:12 Hm Interface, Radiology Results 11/14/2019 5:05 PM CDTEXAMINATION: CT POST MYELOGRAM LUMBARCLINICAL HISTORY: M96.0 Pseudarthrosis after fusion or arthrodesis, M54.5 Low back pain, painCOMPARISON: Lumbar CT February 28, 2018.TECHNIQUE: Axial postintrathecal contrast enhanced images of the spine were obtained with coronal and sagittal MIP reconstructed imaging. CT imaging was performed with iterative reconstruction technique and/or automated exposure control to reduce radiation dose.FINDINGS:There are 5 non-rib bearing lumbar type vertebrae in the most inferior fully formed disc space will be designated L5-S1. There is preservation of the normal lumbar lordosis and overall sagittal alignment is maintained.Old comminuted L2 vertebral body fracture with similar appearance of the distracted anterior fracture fragment which now appears to be fused status post corpectomy.The patient is status post T9-S1 spinal fusion with transpedicular screws from T9 to L5 fixated by vertically oriented rods and disc spacers/interbody fusions from L3-L4 and L5-S1. There is also a left lateral fusion construct from L1 to L3. Status post L1 and L2 corpectomy with strut graft from the inferior T12 endplate to the superior L3 vertebral body. There appears to be solid interbody fusion from T12 to S1. No evidence of hardware failure. Extensive laminectomies about the lumbar spine. Heterotopic ossification about the laminectomy bed and neck posterior elements about the lumbar spine.No acute fractures. The conus medullaris terminates at the L1 vertebral body level.Evaluation of the visualized soft tissues demonstrates no mass, adenopathy or aneurysm. Axial images through the disc spaces demonstrate the followin-L1: Discectomy with heterotopic ossification effacing the subarachnoid space compacting the cauda equina nerve roots within the thecal sac triangular appearance of the thecal sac. Hypertrophic changes engages the inferior recess for at least moderate pattern of bilateral foraminal narrowing. L1-L2: Technically level of the corpectomy with heterotopic ossification circumferentially effacing the subarachnoid space without significant narrowing the effective AP canal diameter. There is mild compaction of the cauda equina nerve roots within the thecal sac. Atrophic changes engages the inferior recess for bilateral foraminal narrowing.L2-L3: Decompressive laminectomy with postsurgical changes and fibrosis mildly effacing the left dorsal lateral subarachnoid space without significant narrowing of the effective AP canal diameter. Hypertrophic changes engages the inferior recess for at least moderate pattern of bilateral foraminal narrowing.L3-L4: Decompressive laminectomy without significant central canal narrowing. Hypertrophic changes engages the inferior recess for moderate pattern of left foraminal narrowing.L4-L5: Discectomy and decompressive laminectomy without significant central canal narrowing. Bjur-fz-qnxfksse right foraminal narrowing.L5-S1: Decompressive laminectomy and discectomy without significant central canal narrowing. Hypertrophic changes engages the inferior recess for mild to moderate pattern of left greater than right foraminal narrowing.Evaluation of other visualized levels demonstrates no significant posterior disc disease, spinal canal, subarticular zone, or neural foraminal stenosis.Chronic left-sided lower rib fractures.IMPRESSION:Extensive postsurgical fusion changes of the thoracolumbar spine as described above.Moderate pattern of central canal narrowing at the level of the corpectomy L1 and L2 with compaction of the cauda equina nerve roots worse at T12-L1.Persistent foraminal narrowing at L2-3.Level by level detail of the lumbar spine as above.[id number] [place] [facility] [facility] Basic metabolic panel 2019-11-14 12:23:36 Test Item Sodium (test code = 2951-2) 141 135- 150 mEq/L Potassium (test code = 2823-3) 4.1 3.5- 5.0 mEq/L Chloride (test code = 2075-0) 104 98- 112 mEq/L CO2 (test code = 2027-9) 28 mmol/L 24-31 Anion gap (test code = 22034-8) 9@ANIO 7- 15 mEq/L BUN (test code = 3094-0) 13 mg/dL 7-18 Creatinine (test code = 2160-0) 1.00 mg/dL 0.7-1.2 Glucose (test code = 2345-7) 106 mg/dL 65-100 H Calcium (test code = 40426-6) 9.3 mg/dL 8.8-10.2 Lab Interpretation (test code = 23387-7) Abnormal Frey MethodistEstimated [id number] 12:23:35* Test Item Value Reference Range Interpretation Comments Estimated GFR (test code = 5488) 89 mL/min/1.73 m2 Catergory Units InterpretationG1 >=90 Normal or highG2 60-89 Mildly ciczwlidrP3c 45-59 Mildly to moderately ziruygqwlQ3y 30-44 Moderately to severely decreasedG4 15-29 Severely decreasedG5 <15 Kidney failureThe eGFR was calculated using the Chronic Kidney Disease Epidemiology Collaboration (CKD-EPI) equation. Interpretation is based on recommendations of the National Kidney Foundation-Kidney Disease Outcomes Quality Initiative (NKF-KDOQI) published in 2014. Tk MethodistPartial thromboplastin time, [id number] 12:16:20* Test Item Value Reference Range Interpretation Comments PTT (test code = 3173-2) 30.3 23.0- 36.0 sec P TT therapeutic range for unfractionated heparin is61.0-112.0 seconds which corresponds to Anti-Xa0.3-0.7 U/ml. Tk MethodistProthrombin time with [id number] 12:15:35* Test Item Value Reference Range Interpretation Comments Prothrombin time (test code = 5902-2) 13.0 11.5- 14.5 sec INR (test code = 25858-3) 0.98 Fo r patients on anticoagulant therapy, reference ranges below:Indication: INR ValueTreatment of Venous Thrombosis, 2.0-3.0pulmonary emboli, or prophylaxisof a venous thrombosis, or systemic emboli.High dose, high risk patients 3.0-4.5with mechanical valves.NOTE: INR values over 3.0 are sometimes associated withgastrointestinal hemorrhage, especially values over 4.0. [place] MethodistCBC with platelet and [id number] 12:07:50* Test Item Value Reference Range Interpretation Comments WBC (test code = 91069-9) 7.2 4.2- 11.0 k/uL RBC (test code = 47014-1) 5.33 m/uL 4.04-5.86 HGB (test code = 718-7) 14.8 g/dL 13-17.3 HCT (test code = 4544-3) 47.1 % 34-45 H MCV (test code = 787-2) 88.4 fL 80-98 MCH (test code = 785-6) 27.8 pg 27-34 MCHC (test code = 786-4) 31.4 g/dL 31.5-36.5 L RDW - SD (test code = 52317-5) 44.3 fL 37-51 MPV (test code = 76843-9) 9.6 fL 7.4-10.4 Platelet count (test code = 72792-7) 244 150- 400 k/uL Nucleated RBC (test code = 16758-1) 0.00 /100 WBC Neutrophils (test code = 72679-8) 57.8 % 36-66 Lymphocytes (test code = 87709-7) 32.6 % 24-44 Monocytes (test code = 62665-6) 7.4 % 0-6 H Eosinophils (test code = 61397-1) 1.5 % 0-6 Basophils (test code = 32710-5) 0.6 % 0-1.2 Immature granulocytes (test code = 13510-6) 0.1 % 0-1 Lab Interpretation (test code = 11253-9) Abnormal [place] [id number] 05:43:00* Test Item Value Reference Range Interpretation Comments Hemoglobin (test code = 84157-5) 12.0 14.0-18.0 L [facility] [facility] CenterHematocrit2019-[facility] 05:43:00* Test Item Value Reference Range Interpretation Comments Hematocrit (test code = 4544-3) 37.3 38.2-49.6 L [facility] CenterPELVIS AP 1-2 [id number] 10:43:00 [facility] [address] [address] Patient Name: SHERYL RIZZO MR #: [id number] : 1950 Age/Sex: 67/M Req #: [id number] Adm Physician: OTIS SARKAR MD Ordered by: OTIS SARKAR MD Report #: [id number] Location: PACU V Room/Bed: PACU-1 Procedure: [id number] DX /PELVIS AP 1-2 VIEWS Exam Date: 10/19/18 Exam Time: 1015 REPORT STATUS: Signed Ri t hip, 2 views. History: Post op. Findings: Status post total rig ht hip total arthroplasty with prosthetic components in anatomic alignment. O verlying post-surgical air is present. Advanced degenerative changes are noted involving the left hip. IMPRESSION: Status post right hip replacement in anatomic position. Signed by: Larry Reddy on 10/19/2018 10:44 AM Dictated By: LARRY REDDY MD 1044 COPY TO: OTIS SARKAR MD CHEST 2 DORTS5084-02-03 11:38:00 [facility] [address] [address] Patient Name: SHERYL RIZZO MR #: [id number] : 1950 Age/Sex: 67/M Req #: [id number] Adm Physician: Ordered by: OTIS SARKAR MD Report #: [id number] Location: OR Room/Bed: Procedure: [id number] DX/ CHEST 2 VIEWS Exam Date: 10/18/18 Exam Time: 1020 REPORT STATUS: Signed EXAMINATION: CHEST 2 VIEWS INDICATION: Pre-operative COMPARISON: None FINDINGS: LINES/TUBES:None LUNGS:The lungs are well-inflated. No focal consolidation or pulmonary edema. PLEURA:Trace left pleural effusion. No pneumothorax. MEDIASTINUM:The cardiomediastinal silhouette appears normal in size and shape. BONES/SOFT TISSUES:No acute osseous injury. Thoracolumb ar fusion hardware. ABDOMEN:No free air under the diaphragm. IMPRES IVETTE: No focal pneumonia or pulmonary edema. Signed by: Edilson Copeland MD o n 10/18/2018 11:40 AM Dictated By: EDILSON COPELAND MD 1140 Transcribed By: TIM on 10/18/18 1140 COPY TO: OTIS SARKAR MD White Blood [id number] 11:06:00* Test Item Value Reference Range Interpretation Comments White Blood Count (test code = 6690-2) 5.24 4.8-10.8 [facility] CenterRed Blood [id number] 11:06:00* Test Item Value Reference Range Interpretation Comments Red Blood Count (test code = 789-8) 5.06 4.3-5.7 [facility] CenterMean Corpuscular [id number] 11:06:00* Test Item Value Reference Range Interpretation Comments Mean Corpuscular Volume (test code = 787-2) 86.2 81-99 [facility] CenterMean Corpuscular [id number] 11:06:00* Test Item Value Reference Range Interpretation Comments Mean Corpuscular Hemoglobin (test code = 785-6) 27.7 28-32 L [facility] CenterMean Corpuscular Hemoglobin Concent 2018-10-18 11:06:00* Test Item Value Reference Range Interpretation Comments Mean Corpuscular Hemoglobin Concent (test code = 786-4) 32.1 31-35 [facility] CenterRed Cell Distribution [id number] 11:06:00* Test Item Value Reference Range Interpretation Comments Red Cell Distribution Width (test code = 51919-6) 14.4 11.7 -14.4 [facility] CenterPlatelet [id number] 11:06:00* Test Item Value Reference Range Interpretation Comments Platelet Count (test code = 777-3) 254 140-360 [facility] CenterNeutrophils (%) (Auto)2018-10-18 11:06:00 * Test Item Value Reference Range Interpretation Comments Neutrophils (%) (Auto) (test code = 02480-7) 61.2 38.7-80.0 [facility] CenterLymphocytes (%) (Auto)2018-10-18 11:06:00 * Test Item Value Reference Range Interpretation Comments Lymphocytes (%) (Auto) (test code = 736-9) 31.1 18.0-39.1 [facility] CenterMonocytes (%) (Auto)2018-10-18 11:06:00* Test Item Value Reference Range Interpretation Comments Monocytes (%) (Auto) (test code = 5905-5) 6.1 4.4-11.3 [facility] CenterEosinophils (%) (Auto)2018-10-18 11:06:00 * Test Item Value Reference Range Interpretation Comments Eosinophils (%) (Auto) (test code = 713-8) 1.0 0.0-6.0 [facility] CenterBasophils (%) (Auto)2018-10-18 11:06:00* Test Item Value Reference Range Interpretation Comments Basophils (%) (Auto) (test code = 706-2) 0.4 0.0-1.0 [facility] CenterIM GRANULOCYTES %2018-10-18 11:06:00* Test Item Value Reference Range Interpretation Comments IM GRANULOCYTES % (test code = IM GRANULOCYTES %) 0.2 0.0- 1.0 [facility] CenterNeutrophils # (Auto)2018-10-18 11:06:00* Test Item Value Reference Range Interpretation Comments Neutrophils # (Auto) (test code = 751-8) 3.2 2.1-6.9 [facility] CenterLymphocytes # (Auto)2018-10-18 11:06:00* Test Item Value Reference Range Interpretation Comments Lymphocytes # (Auto) (test code = 77974-6) 1.6 1.0-3.2 [facility] CenterMonocytes # (Auto)2018-10-18 11:06:00* Test Item Value Reference Range Interpretation Comments Monocytes # (Auto) (test code = 742-7) 0.3 0.2-0.8 [facility] CenterEosinophils # (Auto)2018-10-18 11:06:00* Test Item Value Reference Range Interpretation Comments Eosinophils # (Auto) (test code = 711-2) 0.1 0.0-0.4 [facility] CenterBasophils # (Auto)2018-10-18 11:06:00* Test Item Value Reference Range Interpretation Comments Basophils # (Auto) (test code = 704-7) 0.0 0.0-0.1 [facility] CenterAbsolute Immature Granulocyte (auto 2018-10-18 11:06:00* Test Item Value Reference Range Interpretation Comments Absolute Immature Granulocyte (auto (janet t code = Absolute Immature Granulocyte (auto) 0.01 0-0.1 [facility]
--- OUTSIDE RECORDS SUMMARY | 2019-12-15 18:42 | XMS REPORT | Clinical Summary ---
Author Author [facility] Organization [facility] Address Unknown Phone Unavailable Care Team Providers Care School Based Therapist Name Role Phone Liban Zurita MD PCP Allergies No Known Active Allergies Medications End Date Status Medication Sig [...] 2 (two) times a day. Active omega 6-uwu-yym-fish oil Take 1 0 (FISH OIL) 100-160-1,000 capsule by mg capsule mouth nightly. Active polyethylene glycol Take 17 g by 0 (MIRALAX) 17 gram packet mouth daily as needed for constipation. Active rosuvastatin (CRESTOR) 20 Take 20 mg by 0 MG tablet mouth nightly. Active ZOAGWEP-MIPHBSOWH-UBPD Take 1 tablet 0 ORAL by mouth every morning. Active midodrine (PROAMATINE) 5 Take 5 mg by 3 05/27 MG tablet mouth 2 (two) 9 times a day. Active metoprolol tartrate TAKE 1/2 1 (LOPRESSOR) 25 mg tablet TBALET BY 9 MOUTH TWICE A DAY 11/15/2019 gabapentin (NEURONTIN) Take 1 90 capsule 11 300 mg capsule capsule (300 9 mg total) by mouth 3 (three) times a day. Active Problems Problem Noted Date Pseudarthrosis following spinal fusion 02/19/2018 Syncope 12/16/2017 Encounters Care Team Description Date Type Specialty Bonifacio Orr PA-C Chronic low back pain, unspecified back pain laterality, unspecified whether sciatica present (Primary Dx); Lumbar radiculopathy, right; Left lumbar radiculopathy; Degeneration of intervertebral disc of lumbar region; Sagittal plane imbalance; Pseudarthrosis following spinal fusion; DDD (degenerative disc disease), thoracic 11/17/2019 Telemedicine Orthopedic Surgery 11/17/2019 Travel Segundo Ken Sagittal plane imbalance (Primary Dx); Chronic low back pain, unspecified back pain laterality, unspecified whether sciatica present; Left lumbar radiculopathy 11/16/2019 Orders Only Orthopedic Surgery Segundo Ken Pseudarthrosis following spinal fusion; Chronic low back pain, unspecified back pain laterality, unspecified whether sciatica present; Left lumbar radiculopathy; Lumbar radiculopathy, right; Sagittal plane imbalance; Lumbar stenosis with neurogenic claudication; Degeneration of intervertebral disc of lumbar region; Adjacent segment disease with kyphosis; DDD (degenerative disc disease), thoracic 11/14/2019 Hospital Radiology Encounter Segundo Ken Pseudarthrosis following spinal fusion; Chronic low back pain, unspecified back pain laterality, unspecified whether sciatica present; Left lumbar radiculopathy; Lumbar radiculopathy, right; Sagittal plane imbalance; Lumbar stenosis with neurogenic claudication; Degeneration of intervertebral disc of lumbar region; Adjacent segment disease with kyphosis; DDD (degenerative disc disease), thoracic 11/14/2019 Hospital Radiology Encounter Segundo Ken. Pseudarthrosis following spinal fusion; Chronic low back pain, unspecified back pain laterality, unspecified whether sciatica present; Left lumbar radiculopathy; Lumbar radiculopathy, right; Sagittal plane imbalance; Lumbar stenosis with neurogenic claudication; Degeneration of intervertebral disc of lumbar region; Adjacent segment disease with kyphosis; DDD (degenerative disc disease), thoracic 11/14/2019 Hospital Radiology Encounter 11/14/2019 Travel 11/08/2019 Travel Levon Duvall RN 11/08/2019 Telephone Radiology Bonifacio Orr PA-C Pseudarthrosis following spinal fusion ( Primary Dx); Chronic low back pain, unspecified back pain laterality, unspecified whether sciatica present; Left lumbar radiculopathy; Lumbar radiculopathy, right; Sagittal plane imbalance; Lumbar stenosis with neurogenic claudication; Degeneration of intervertebral disc of lumbar region; Adjacent segment disease with kyphosis; DDD (degenerative disc disease), thoracic 11/03/2019 Telemedicine Orthopedic Surgery 11/03/2019 Travel Bonifacio Orr PA-C Chronic low back pain, unspecified back pain laterality, unspecified whether sciatica present (Primary Dx); Degeneration of intervertebral disc of lumbar region; Pseudarthrosis following spinal fusion; Adjacent segment disease with kyphosis; Sagittal plane imbalance; Lumbar stenosis with neurogenic claudication 09/09/2019 Office Visit Orthopedic Surgery 09/09/2019 Travel Bonifacio Orr PA-C Degeneration of intervertebral disc of l umbar region (Primary Dx); Chronic low back pain without sciatica, unspecified back pain laterality; Pseudarthrosis following spinal fusion; Adjacent segment disease with kyphosis; Sagittal plane imbalance 04/15/2019 Office Visit Orthopedic Surgery Anant Singer MD Buchert, Gerald R., PA-C Sagittal plane imbalance (Primary Dx); Chronic low back pain without sciatica, unspecified back pain laterality; Adjacent segment disease with kyphosis; Degeneration of intervertebral disc of lumbar region; Degenerative scoliosis in adult patient 01/04/2019 Office Visit Orthopedic Surgery after 12/11/2018 Surgical History Surgery Date Site/Laterality Comments BACK SURGERY 02/10/2004 - and 2010 02/08/2005 COLONOSCOPY 02/09/2015 - 02/09/2016 FUSION, ANT AND POST 02/19/2018 Spine Procedure : STAGE 1 L1-L2 L2-L3 ANTERIOR SPINAL COLUMN, LUMBAR, Lumbar/N/A OSTEOTOMIES WI TH 20 CAGE @L2-L3 AND 15 CAGE @ ANTERIOR AND POSTERIOR L1-L2 WITH ANTERIOR SPINAL FUSION WITH APPROACHES, W LUMBAR INSTRUMENTATION AND BMP; S urgeon: Anant Singer MD; Location: [facility]; Service: Orthopedics; Laterality: N/A; Medical devices from this surgery are i n the Implants section. FUSION, ANT AND POST 02/25/2018 Spine Procedure : SPINAL FUSION WITH INSTRUMENTAION T9-L5 SPINAL COLUMN, LUMBAR, Lumbar/N/A WITH HARDWARE REMOVAL MANTILLA DOLAN OSTEOTOMIES ANTERIOR AND POSTERIOR L1-L2 L2-L3 LAMINECTIOMY L1 -L2 L2-L3 WITH BMP W/ APPROACHES, W LUMBAR SSEP MONITORING; Surgeon: Anant Singer MD; LAMINECTOMY [facility]; Ser vice: Orthopedics; Laterality: N/A; Medical devices from this surgery are i n the Implants section. FUSION, ANTERIOR SPINAL 03/01/2018 Spine Proced ure: FUSION, ANTERIOR SPINAL COLUMN, LUMBAR, COLUMN, LUMBAR, ANTERIOR Lumbar/N/A ANTERIOR SERINA BROWN L2 Corpectomy with L1- 3 fusion; APPROACH possible instrumentation fu yeyo; SSEP and motors; BMP; Surgeon: Anant Singer MD; L ocation: [facility]; Service: Orthopedics; La terality: N/A; Medical devices from this surgery are i n the Implants section. Medical History Medical History Date Comments High cholesterol Arthritis Chronic back pain Anesthesia NHAP/NFHAP Dental buddhism present Dental Implants Hypertension well controlled Exercise tolerance finding can climb 2 flights of s tairs. does not exericse due to chronic back pain. denies chest pain or sob Bilateral leg weakness left LE >RLE. tingling in t oes Family History Medical History Relation Name Comments Hypertension Mother Relation Name Status Comments Mother Social History Date Tobacco Use Types Packs/Day Years Used Never Smoker 0 0 Smokeless Tobacco: Never Used Drinks/Week oz/Week Comments Alcohol Use 0 Glasses of wine 0 Cans of beer 0 Shots of liquor 0 Standard drinks or equivalent 0.0 occasional Yes Sex Assigned at Date Recorded Not on file Date Recorded COVID-19 Exposure Response 11/17/2019 9:17 AM CDT In the last month, have you been in contact with No / Unsure someone who was confirmed or suspected to have Coronavirus / COVID-19? Last Filed Vital Signs Reading Time Taken Comments Vital Sign 135/84 11/14/2019 3:20 PM CDT Blood Pressure 82 11/14/2019 3:20 PM CDT Pulse 36.3 C (97.3 F) 11/14/2019 12:00 PM CDT Temperature 17 11/14/2019 3:20 PM CDT Respiratory Rate 97% 11/14/2019 3:20 PM CDT Oxygen Saturation - - Inhaled Oxygen Concentration 93.1 kg (205 lb 4 oz) 11/14/2019 12:00 PM CDT Weight 185.4 cm (6' 1") 11/14/2019 12:00 PM CDT Height 27.08 11/14/2019 12:00 PM CDT Body Mass Index Plan of Treatment Health Maintenance Due Date Last Done Comments COLONOSCOPY SCREENING 11/27/2001 SHINGLES VACCINES (#2) 05/11/2015 03/12/2015 INFLUENZA VACCINE 09/10/2019 01/13/2014 65+ PNEUMOCOCCAL VACCINE Completed 10/01/2018, 03/12/2015 Implants Device Identifier Shelf Expiration Date Model / Serial / L ot Implanted Type Area Manufactur er 07/10/2019 [id number] / / [id number] Kit Bone Grft Lmbr Tprd 8ml Xxl Human N/A: N/A MEDTRONIC Infuse - [id number] Tissue SPINAL AND Implanted: Qty: 1 on 02/19/2018 by Implants BIO MiNOWirelessS Anant Singer MD at [facility] 06/03/2020 [id number] / [id number] / LOT NA Chip Canc Allograft Leader [facility] Human N/A: N/A MUSCULOSKE 30cc 0.1-4mm - [id number] - Tissue LETAL [id number] Implants TRANSPLANT Implanted: Qty: 1 on 02/19/2018 by [facility] Anant Singer MD at [facility] 12/22/2020 [id number] / [id number] / LOT NA Chip Canc Allograft Leader [facility] Human N/A: N/A MUSCULOSKE 30cc 0.1-4mm - [id number] - Tissue LETAL [id number] Implants TRANSPLANT Implanted: Qty: 1 on 02/19/2018 by [facility] Anant Singer MD at [facility] 07/10/2019 [id number] / / [id number] Kit Bone Northwell Healthbr Tprd 8ml Xxl Human N/A: Spine, MEDTRONIC Infuse - [id number] Tissue Multi-Level SPINAL AND Implanted: Qty: 1 on 02/25/2018 by Implants BIO LOGICAnant Ayala MD at [facility] 09/25/2020 [id number] / [id number] / LOT NA Chip Canc Allograft Leader [facility] Human N/A: Spine, MUSCULOSKE 30cc 0.1-4mm - [id number] - Tissue Multi-Level LETAL [id number] Implants TRANSPLANT Implanted: Qty: 1 on 02/25/2018 by Anant Allen MD at [facility] 12/22/2020 [id number] / [id number] / LOT NA Chip Canc Allograft Leader [facility] Human N/A: Spine, MUSCULOSKE 30cc 0.1-4mm - [id number] - Tissue Multi-Level LETAL [id number] Implants TRANSPLANT Implanted: Qty: 1 on 02/25/2018 by [facility] Anant Singer MD at [facility] 09/25/2020 [id number] / [id number] / LOT NA Chip Canc Allograft Leader [facility] Human N/A: Spine, MUSCULOSKE 30cc 0.1-4mm - [id number] - Tissue Multi-Level LETAL [id number] Implants TRANSPLANT Implanted: Qty: 1 on 02/25/2018 by [facility] Anant Singer MD at [facility] 10/09/2020 [id number] / / [id number] Matrix Dural Duragen Plus 1x3in Human N/A: N/A INTEGRA Regnrtn - [id number] Tissue LIFESCIENC Implanted: Qty: 1 on 02/25/2018 by Implants E Anant Rouse MD at [facility] 01/20/2021 [id number] / [id number] / [id number] Chip Canc Allograft Leader [facility] Human N/A: N/A MUSCULOSKE 30cc 0.1-4mm - [id number] - Tissue LETAL [id number] Implants TRANSPLANT Implanted: Qty: 1 on 03/01/2018 by Anant Allen MD at [facility] 01/20/2021 [id number] / [id number] / LOT NA Chip Canc Allograft Leader [facility] Human N/A: N/A MUSCULOSKE 30cc 0.1-4mm - [id number] - Tissue LETAL [id number] Implants TRANSPLANT Implanted: Qty: 1 on 03/01/2018 by [facility] Anant Singer MD at [facility] 01/20/2021 [id number] / [id number] / LOT NA Chip Canc Allograft Leader Crshd Human N/A: N/A MUSCULOSKE 30cc 0.1-4mm - [id number] - Tissue LETAL [id number] Implants TRANSPLANT Implanted: Qty: 1 on 03/01/2018 by [facility] Anant Singer MD at [facility] 04/09/2019 [id number] / / [id number] Kit Bone Grft Lmbr Tprd 5.6ml Med Human N/A: N/A MEDTR[employer]IC Infuse - [id number] Tissue SPINAL AND Implanted: Qty: 1 on 03/01/2018 by Implants BIO LOGICS Anant Singer MD at [facility] [id number] / / Valente Glaser Md 14mm 20 Deg - IPM N/A: N/A DEPUY [id number] IMPLANT SYNTHES Implanted: Qty: 1 on 02/19/2018 by DEVICES [facility] Anant Webb MD at [facility] [id number] / / Valente Ls [id number] 15-Deg Lord - IPM N/A: N/A DEPUY [id number] IMPLANT SYNTHES Implanted: Qty: 1 on 02/19/2018 by [facility] Anant Webb MD at [facility] [id number] / / Expedium 6.35 Ti, Poly Screw 6 X IPM N/A: Spine, DEPUY 30mm - [id number] IMPLANT Multi-Level SYNTHES Implanted: 02/25/2018 at [facility] (Quantity not on file) [id number] / / Expedium 6.35 Ti, Poly Screw 6 X IPM N/A: Spine, DEPUY 45mm - [id number] IMPLANT Multi-Level SYNTHES Implanted: 02/25/2018 at [facility] (Quantity not on file) [id number] / / Expedium 6.35 Ti, Poly Screw 6 X IPM N/A: Spine, DEPUY 50mm - [id number] IMPLANT Multi-Level SYNTHES Implanted: 02/25/2018 at [facility] (Quantity not on file) [id number] / / Expedium 6.35 Ti, Poly Screw 7 X IPM N/A: Spine, DEPUY 50mm - [id number] IMPLANT Multi-Level SYNTHES Implanted: 02/25/2018 at [facility] DEVICES [facility] (Quantity not on file) [id number] / / Expedium 6.35 Ti, Poly Screw 8 X IPM N/A: Spine, DEPUY 50mm - [id number] IMPLANT Multi-Level SYNTHES Implanted: 02/25/2018 at [facility] (Quantity not on file) [id number] / / Expedium Plus Ti, Eleuterio, Str, Ti, IPM N/A: Spine, DEPUY 450mm (Hx End) - [id number] IMPLANT Multi-Level SY NTHES Implanted: 02/25/2018 at [facility] (Quantity not on file) [id number] / / Expedium Plus Ti, Eleuterio, Str, Ti, IPM N/A: Spine, DEPUY 450mm (Hx End) - [id number] IMPLANT Multi-Level SY NTHES Implanted: 02/25/2018 at [facility] (Quantity not on file) [id number] / / Expedium Plus Ti, Open/Cls Sd X Sd IPM N/A: Spine, DEPUY Con 635/635 Ti - [id number] IMPLANT Multi-Level SY NTHES Implanted: 02/25/2018 at [facility] (Quantity not on file) [id number] / / Synmesh 15mm Rosalia 88mm Height (Ti) - IPM N/A: N/A SYNTHES (00) Synmesh IMPLANT SPINE - [id number] DEVICES Implanted: Qty: 2 on 03/01/2018 by Anant Singer MD at [facility] [id number] / / Expedium Anterior, Carlton Screw 6 X IPM N/A: N/A DEPUY 55mm - [id number] IMPLANT SYNTHES Implanted: Qty: 2 on 03/01/2018 by DEVICES Anant Villagomez MD at [facility] [id number] / / Expedium Anterior, Pre-Cut 5.50 X IPM N/A: N/A DEPUY 95mm Eleuterio - [id number] IMPLANT SYNTHES Implanted: Qty: 1 on 03/01/2018 by DEVICES Anant Villagomez MD at [facility] [id number] / / Expedium Anterior, Carlton Screw 6 X IPM N/A: N/A DEPUY 55mm - [id number] IMPLANT SYNTHES Implanted: Qty: 2 on 03/01/2018 by DEVICES SPI NE Anant Singer MD at [facility] [id number] / / Expedium Anterior, Pre-Cut 5.50 X IPM N/A: N/A DEPUY 95mm Eleuterio - [id number] IMPLANT SYNTHES Implanted: 03/01/2018 at [facility] (Quantity not on file) [id number] / / Synmesh 15mm Rosalia 88mm Height (Ti) - IPM N/A: N/A SYNTHES (00) Synmesh IMPLANT SPINE - [id number] DEVICES Implanted: Qty: 2 on 03/01/2018 by Anant Singer MD at [facility] [id number] / / Screw Spinal Set Si Ti 6.35mm Spinal N/A: Spine, DEPUY Expedium - [id number] Implants Multi-Level SPINE Implanted: 02/25/2018 at [facility] (Quantity not on file) [id number] / / Screw Spinal Set Si Ti 6.35mm Spinal N/A: Spine, DEPUY Expedium - [id number] Implants Multi-Level SPINE Implanted: 02/25/2018 at [facility] (Quantity not on file) [id number] / / Screw Set Ant - [id number] Spinal N/A: N/A DEP UY Implanted: 03/01/2018 at [facility] (Quantity not on file) [id number] / / Screw Set Ant - [id number] Spinal N/A: N/A DEP UY Implanted: 03/01/2018 at [facility] (Quantity not on file) 04/09/2019 [id number] / / [id number] Selnt Fibrin Humn [facility] Surgy Surgical N/A: N/A ETHICON 5ml Evicel - [id number] Implants; US- Implanted: 02/25/2018 at [facility] Expanders; HOSPITAL (Quantity not on file) Extenders; Surgical Wires Procedures Comments Procedure Name Priority Date/Time Associated Diag nosis FL MYELOGRAM 2+REG INCL Routine 11/16/2019 Pseuda rthrosis following INJ W S&I 2:20 PM CDT spinal fusion Chronic low back pain, unspecified back pain laterality, unspecified whether sciatica present Left lumbar radiculopathy Lumbar radiculopathy, right Sagittal plane imbalance Lumbar stenosis with neurogenic claudication Degeneration of intervertebral disc of lumbar region DDD (degenerative disc disease), thoracic CT POST MYELOGRAM LUMBAR Routine 11/14/2019 Pseud arthrosis following 2:17 PM CDT spinal fusion Chronic low back pain, unspecified back pain laterality, unspecified whether sciatica present Left lumbar radiculopathy Lumbar radiculopathy, right Sagittal plane imbalance Lumbar stenosis with neurogenic claudication 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), thoracic CT POST MYELOGRAM Routine 11/14/2019 Pseudarthros is following THORACIC 2:16 PM CDT spinal fusion Chronic low back pain, unspecified back pain laterality, unspecified whether sciatica present Left lumbar radiculopathy Lumbar radiculopathy, right Sagittal plane imbalance Lumbar stenosis with neurogenic claudication 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), thoracic ESTIMATED GFR Routine 11/14/2019 10:15 AM CDT PARTIAL THROMBOPLASTIN Routine 11/14/2019 TIME (PTT) 10:15 AM CDT PROTHROMBIN TIME WITH INR Routine 11/14/2019 10:15 AM CDT BASIC METABOLIC PANEL Routine 11/14/2019 10:15 AM CDT HC COMPLETE BLD COUNT Routine 11/14/2019 W/AUTO DIFF 10:15 AM CDT XR SPINE SCOLIOSIS 2-3 Routine 09/09/2019 Chronic low back pain, VIEWS 12:01 PM CDT unspecified back pa in laterality, unspecified whether sciatica present Degeneration of intervertebral disc of lumbar region 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 Sagittal plane imbalance Lumbar stenosis with neurogenic claudication XR SPINE SCOLIOSIS 2-3 Routine 04/15/2019 Degener ation of VIEWS 10:54 AM DIVISION SUPERINTENDENT intervertebral disc of lumbar region Chronic low back pain without sciatica, unspecified back pain laterality 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 Sagittal plane imbalance XR SPINE SCOLIOSIS 2-3 Routine 01/04/2019 Sagitta l plane imbalance VIEWS 11:16 AM DIVISION SUPERINTENDENT Chronic low back pa in without sciatica, unspecified back pain laterality Adjacent segment disease with kyphosis Degeneration of intervertebral disc of lumbar region Degenerative scoliosis in adult patient after 12/11/2018 Results * FL Myelogram 2+Reg Incl Inj W S&I (11/16/2019 2:20 PM CDT) Specimen Narrative Performed At EXAMINATION: FL MYELOGRAM 2 REG INCL INJ W S&I [facility] REASON FOR EXAMINATION: M96.0 Pseudar throsis after fusion or arthrodesis, M54.5 Low back pain, pain COMPARISON: None TECHNIQUE: FL MYELOGRAM 2 REG INCL INJ W S&I M96.0 Pseudarthrosis after fusion or ar throdesis, M54.5 Low back pain, pain TECHNIQUE: After informed consent was obtained, th e patient was placed prone on the fluoroscopy table. The back was prepped and draped in ster ile manner. 1% buffered lidocaine was used for local anesthesia. Under fluoroscopic guidance, a 20 -ga uge needle was advanced percutaneously into the spinal subarachnoid space at L 4 until free-flowing CSF returned from the hub. Subsequently,17 -mL of Omnipaque 300 was instilled into the thecal sac. The needle was removed. Multiple myelograph ic projections of the thoracic spine were obtained. The patient tolerated pr ocedure well with no immediate complication. Conscious Sedation: None FINDINGS: Contrast was seen within the thoracic s pine. Orthopedic hardware seen in the lower thoracic and lumbar spine. More d etailed discussion will be given on postmyelogram CT. IMPRESSION: 1. Status post thoracic myelogram. LUMBAR MYELOGRAM: After informed consent was obtained, th e patient was placed prone on the fluoroscopy table. The back was prepped and draped in ster ile manner. 1% buffered lidocaine was used for local anesthesia. Under fluoroscopic guidance, a 20 -ga uge needle was advanced percutaneously into the spinal subarachnoid space at L 4 until free-flowing CSF returned from the hub. Subsequently,17 -mL of Omnipaque 300 was instilled into the thecal sac. The needle was removed. Multiple myelograph ic projections of the lumbar spine were obtained. The patient tolerated procedu re well with no immediate complication. Conscious Sedation: None FINDINGS: Contrast was seen within the lumbar spi ne.. Orthopedic hardware seen in the lower thoracic and lumbar spine. More d etailed discussion will be given on postmyelogram CT. IMPRESSION: 1. Status POST LUMBAR MYELOGRAM. Fluoroscopy time: 4.5 minutes number of fluoroscopic images obtained: 16 Total Dose 260.2 mGy [id number] Procedure Note Hm Interface, Radiology Results Incoming - 11/30/2019 9:28 AM CDT EXAMINATION: FL MYELOGRAM 2 REG INCL INJ W S&I REASON FOR EXAMINATION: M96.0 Pseudarthrosis after fusion or arthrodesis, M54.5 Low back pain, pain COMPARISON: None TECHNIQUE: FL MYELOGRAM 2 REG INCL INJ W S&I M96.0 Pseudarthrosis after fusion or arthrodesis, M54.5 Low back pain, pain TECHNIQUE: After informed consent was obtained, the patient was placed prone on the fluoroscopy table. The back was prepped and draped in sterile manner. 1% buffered lidocaine was used for local anesthesia. Under fluoroscopic guidance, a 20 -gauge needle was advanced percutaneously into the spinal subarachnoid space at L4 until free-flowing CSF returned from the hub. Subsequently,17 -mL of Omnipaque 300 was instilled into the thecal sac. The needle was removed. Multiple myelographic projections of the thoracic spine were obtained. The patient tolerated procedure well with no immediate complication. Conscious Sedation: None FINDINGS: Contrast was seen within the thoracic spine. Orthopedic hardware seen in the lower thoracic and lumbar spine. More detailed discussion will be given on postmyelogram CT. IMPRESSION: 1. Status post thoracic myelogram. LUMBAR MYELOGRAM: After informed consent was obtained, the patient was placed prone on the fluoroscopy table. The back was prepped and draped in sterile manner. 1% buffered lidocaine was used for local anesthesia. Under fluoroscopic guidance, a 20 -gauge needle was advanced percutaneously into the spinal subarachnoid space at L4 until free-flowing CSF returned from the hub. Subsequently,17 -mL of Omnipaque 300 was instilled into the thecal sac. The needle was removed. Multiple myelographic projections of the lumbar spine were obtained. The patient tolerated procedure well with no immediate complication. Conscious Sedation: None FINDINGS: Contrast was seen within the lumbar spine.. Orthopedic hardware seen in the lower thoracic and lumbar spine. More detailed discussion will be given on postmyelogram CT. IMPRESSION: 1. Status POST LUMBAR MYELOGRAM. Fluoroscopy time: 4.5 minutes number of fluoroscopic images obtained: 16 Total Dose 260.2 mGy [id number] Performing Organization Address City/State/ZIP Code P bernie Number [facility] [id number] [place] [address] * CT Post Myelogram Lumbar (11/14/2019 2:17 PM CDT) Specimen Narrative Performed At EXAMINATION: CT POST MYELOGRAM LUMBAR [facility] CLINICAL HISTORY: M96.0 Pseudarthrosis after fusion or arthrodesis, M54.5 Low back pain, pain COMPARISON: Lumbar CT February 28 9. TECHNIQUE: Axial postintrathecal contra st enhanced images of the spine were obtained with coronal and sagittal MIP reconstructed imaging. CT imaging was performed with iterative reconstruction technique and/or automated exposure control to reduce radiation dose. FINDINGS: There are 5 non-rib bearing lumbar type vertebrae in the most inferior fully formed disc space will be designated L5 -S1. There is preservation of the normal lumbar lordosis and overall sagittal al ignment is maintained. Old comminuted L2 vertebral body fractu re with similar appearance of the distracted anterior fracture fragment w hich now appears to be fused status post corpectomy. The patient is status post T9-S1 spinal fusion with transpedicular screws from T9 to L5 fixated by vertically oriented rods and disc spacers/interbody fusions from L3-L4 and L5-S1. There is also a l eft lateral fusion construct from L1 to L3. Status post L1 and L2 corpectomy with strut graft f rom the inferior T12 endplate to the superior L3 vertebral body. There appea rs to be solid interbody fusion from T12 to S1. No evidence of hardware failure. Extensive laminectomies about the lumbar spine. Heterotopic ossification about the lami nectomy bed and neck posterior elements about the lumbar spine. No acute fractures. The conus medullari s terminates at the L1 vertebral body level. Evaluation of the visualized soft tissu es demonstrates no mass, adenopathy or aneurysm. Axial images through the disc spaces de monstrate the followin-L1: Discectomy with heterotopic ossi fication effacing the subarachnoid space compacting the cauda equina nerve roots within the thecal sac triangular appearance of the thecal sac. Hypertrop hic changes engages the inferior recess for at least moderate pattern of bilateral foraminal narrowin g. L1-L2: Technically level of the corpect lalo with heterotopic ossification circumferentially effacing the subarach noid space without significant narrowing the effective AP canal diameter. There is mild compaction of the cauda equina nerve roots within the thecal sac. Atrophic changes engages th e inferior recess for bilateral foraminal narrowing. L2-L3: Decompressive laminectomy with p ostsurgical changes and fibrosis mildly effacing the left dorsal lateral subara chnoid space without significant narrowing of the effective AP canal rosalia meter. Hypertrophic changes engages the inferior recess for at least moderate pattern of bilateral for aminal narrowing. L3-L4: Decompressive laminectomy withou t significant central canal narrowing. Hypertrophic changes engages the inferi or recess for moderate pattern of left foraminal narrowing. L4-L5: Discectomy and decompressive villagomez inectomy without significant central canal narrowing. [id number]-puhstgoi right foraminal narrowing. L5-S1: Decompressive laminectomy and di scectomy without significant central canal narrowing. Hypertrophic changes e ngages the inferior recess for mild to moderate pattern of left greater than r ight foraminal narrowing. Evaluation of other visualized levels d emonstrates no significant posterior disc disease, spinal canal, subarticular zon e, or neural foraminal stenosis. Chronic left-sided lower rib fractures. IMPRESSION: Extensive postsurgical fusion changes o f the thoracolumbar spine as described above. Moderate pattern of central canal narro wing at the level of the corpectomy L1 and L2 with compaction of the cauda equ corina nerve roots worse at T12-L1. Persistent foraminal narrowing at L2-3. Level by level detail of the lumbar spi ne as above. [id number] Procedure Note Hm Interface, Radiology Results Incoming - 11/14/2019 5:05 PM CDT EXAMINATION: CT POST MYELOGRAM LUMBAR CLINICAL HISTORY: M96.0 Pseudarthrosis after fusion or arthrodesis, M54.5 Low back pain, pain COMPARISON: Lumbar CT February 28, 2018. TECHNIQUE: Axial postintrathecal contrast enhanced images of the spine were obtained with coronal and sagittal MIP reconstructed imaging. CT imaging was performed with iterative reconstruction technique and/or automated exposure control to reduce radiation dose. FINDINGS: There are 5 non-rib bearing lumbar type vertebrae in the most inferior fully formed disc space will be designated L5-S1. There is preservation of the normal lumbar lordosis and overall sagittal alignment is maintained. Old comminuted L2 vertebral body fracture with similar appearance of the distracted anterior fracture fragment which now appears to be fused status post corpectomy. The patient is status post T9-S1 spinal fusion [...] and neck posterior elements about the lumbar spine. No acute fractures. The conus medullaris terminates at the L1 vertebral body level. Evaluation of the visualized soft tissues demonstrates no mass, adenopathy or aneurysm. Axial images through the disc spaces demonstrate the followin-L1: Discectomy with heterotopic ossif ication effacing the subarachnoid space compacting the cauda [...] engages the inferior recess for bilateral foraminal narrowing. L2-L3: Decompressive laminectomy with postsurgical changes and fibrosis mildly effacing the left dorsal lateral subarachnoid space without significant narrowing of the effective AP canal diameter. Hypertrophic changes engages the inferior recess for at least moderate pattern of bilateral foraminal narrowing. L3-L4: Decompressive laminectomy without significant central canal narrowing. Hypertrophic changes engages the inferior recess for moderate pattern of left foraminal narrowing. L4-L5: Discectomy and decompressive laminectomy without significant central canal narrowing. [id number] right foraminal narrowing. L5-S1: Decompressive laminectomy and discectomy without significant central canal narrowing. Hypertrophic changes engages the inferior recess for mild to moderate pattern of left greater than right foraminal narrowing. Evaluation of other visualized levels demonstrates no significant posterior disc disease, spinal canal, subarticular zone, or neural foraminal stenosis. Chronic left-sided lower rib fractures. IMPRESSION: Extensive postsurgical fusion changes of the thoracolumbar spine as described above. Moderate pattern of central canal narrowing at the level of the corpectomy L1 and L2 with compaction of the cauda equina nerve roots worse at T12-L1. Persistent foraminal narrowing at L2-3. Level by level detail of the lumbar spine as above. [id number] Performing Organization Address City/State/ZIP Code P bernie Number [facility] [id number] [facility] [place] [address] * CT Post Myelogram Thoracic (11/14/2019 2:16 PM CDT) Specimen Narrative Performed At EXAMINATION: CT POST MYELOGRAM THORACIC [facility] CLINICAL HISTORY: M96.0 Pseudarthrosis after fusion or arthrodesis, M54.5 Low back pain, pain COMPARISON: Thoracic spine CT February 28, 2018. TECHNIQUE: Axial postintrathecal contra st enhanced images of the thoracic spine were obtained with coronal and sagittal MIP reconstructed imaging. CT imaging was performed with iterative reconstruc tion technique and/or automated exposure control to reduce radiation dose. FINDINGS: There are 12 rib-bearing thoracic type vertebral bodies. Straightening of the normal thoracic ky phosis. Alignment is maintained. Superior margin of a T9-S1 posterior fu yeyo construct is demonstrated with bilateral transpedicular screws fixated by vertically oriented rods without evidence of hardware failure. The super ior margin of L1 and L2 corpectomy with strut graft is identified with solid interbody fusion to the T12 vertebral body. Diffuse osseous demineralization. T1 weaver perior endplate height loss when compared to prior. There is also subtle height l oss of the L3 superior endplate that is not significantly changed from 2019. Multilevel shallow protrusions about th e thoracic spine mildly effacing the ventral subarachnoid space and contouri ng the ventral cord without significant central canal or foraminal narrowing. Disc osteophyte complexes about the vis ualized lower cervical spine flattening the ventral cord and contributing to at least same pattern of central canal narrowing. Soft tissues are without acute findings . There are small left greater than right pleural effusions with overlying atelec tasis. Chronic left posterior 11th and 12th ri b fractures. IMPRESSION: T1 superior endplate height loss since the most recent prior from 2019. This is suspected degenerative however further investigation with noncontrasted thoracic MR is recommended if there is concern f or acute component. Multilevel shallow disc protrusions mil dly contouring the ventral cord without significant central canal or foraminal narrowing about the thoracic spine. Status post T9-S1 posterior fusion cons truct with partially visualized L1 and L2 corpectomy and strut graft placement wi thout identifiable hardware failure. [id number] Procedure Note Hm Interface, Radiology Results Incoming - 11/14/2019 5:17 PM CDT EXAMINATION: CT POST MYELOGRAM THORACIC CLINICAL HISTORY: M96.0 Pseudarthrosis after fusion or arthrodesis, M54.5 Low back pain, pain COMPARISON: Thoracic spine CT February 28, 2018. TECHNIQUE: Axial postintrathecal contrast enhanced images of the thoracic spine were obtained with coronal and sagittal MIP reconstructed imaging. CT imaging was performed with iterative reconstruction technique and/or automated exposure control to reduce radiation dose. FINDINGS: There are 12 rib-bearing thoracic type vertebral bodies. Straightening of the normal thoracic kyphosis. Alignment is maintained. Superior margin of a T9-S1 posterior fusion construct is demonstrated with bilateral transpedicular screws fixated by vertically oriented rods without evidence of hardware failure. The superior margin of L1 and L2 corpectomy with strut graft is identified with solid interbody fusion to the T12 vertebral body. Diffuse osseous demineralization. T1 superior endplate height loss when compared to prior. There is also subtle height loss of the L3 superior endplate that is not significantly changed from 2019. Multilevel shallow protrusions about the thoracic spine mildly effacing the ventral subarachnoid space and contouring the ventral cord without significant central canal or foraminal narrowing. Disc osteophyte complexes about the visualized lower cervical spine flattening the ventral cord and contributing to at least same pattern of central canal narrowing. Soft tissues are without acute findings. There are small left greater than right pleural effusions with overlying atelectasis. Chronic left posterior 11th and 12th rib fractures. IMPRESSION: T1 superior endplate height loss since the most recent prior from 2018. This is suspected degenerative however further investigation with noncontrasted thoracic MR is recommended if there is concern for acute component. Multilevel shallow disc protrusions mildly contouring the ventral cord without significant central canal or foraminal narrowing about the thoracic spine. Status post T9-S1 posterior fusion construct with partially visualized L1 and L2 corpectomy and strut graft placement without identifiable hardware failure. [id number] Performing Organization Address City/State/ZIP Code [facility]ernie Number [facility] [address] [place] [address] * Estimated GFR (11/14/2019 10:15 AM CDT) Estimated GFR 89 mL/min/1.73 m2 [place] Comment: ROMAN CATHOLIC Catergory Units [place] Interpretation [facility] G1 >=90 Normal or high G2 60-89 Mildly decreased G3a 45-59 Mildly to moderately decreased G3b 30-44 Moderately to severely decreased G4 15-29 Severely decreased G5 <15 Kidney failure The eGFR was calculated using the Chronic Kidney Disease Epidemiology Collaboration (CKD-EPI) equation. Interpretation is based on recommendations of the National Kidney Foundation-Kidney Disease Outcomes Quality Initiative (NKF-KDOQI) published in 2014. Specimen Performing Organization Address City/State/[place] [address] PATHOLOGY AND [facility] [address] * Partial thromboplastin time, activated (11/14/2019 10:15 AM CDT) PTT 30.3 23.0 - 36.0 sec [place] Comment: ROMAN CATHOLIC PTT therapeutic range for [place] unfractionated heparin is HOSPITAL 61.0-112.0 seconds which corresponds to Anti-Xa 0.3-0.7 U/ml. Specimen Blood Performing Organization Address City/[facility] [place] [address] PATHOLOGY AND [facility] [address] * Prothrombin time with INR (11/14/2019 10:15 AM CDT) Prothrombin 13.0 11.5 - 14.[address] [facility] INR 0.98 [place] Comment: ROMAN CATHOLIC For patients on anticoagulant [place] therapy, reference ranges HOSPITAL below: Indication: INR Value Treatment of Venous Thrombosis, 2.0-3.0 pulmonary emboli, or prophylaxis of a venous thrombosis, or systemic emboli. High dose, high risk patients 3.0-4.5 with mechanical valves. NOTE: INR values over 3.0 are sometimes associated with gastrointestinal hemorrhage, especially values over 4.0. Specimen Blood Performing Organization Address City/State/ZIP Code P bernie Number [facility] [address] [place] [id number] PATHOLOGY AND GENOMIC MEDICINE [facility] [address] * CBC with platelet and differential (11/14/2019 10:15 AM CDT) WBC 7.2 4.2 - 11.0 k/uL [facility] RBC 5.33 4.04 - 5.86 m/uL [facility] HGB 14.8 13.0 - 17.3 g/dL [facility] HCT 47.1 (H) 34.0 - 45.0 % [facility] MCV 88.4 80.0 - 98.0 fL [facility] MCH 27.8 27.0 - 34.0 pg [facility] MCHC 31.4 (L) 31.5 - 36.5 g/dL [facility] RDW - SD 44.3 37.0 - 51.0 fL [facility] MPV 9.6 7.4 - 10.4 fL [facility] Platelet count 244 150 - 400 k/uL [facility] Nucleated RBC 0.00 /100 WBC [facility] Neutrophils 57.8 36.0 - 66.0 % [facility] Lymphocytes 32.6 24.0 - 44.0 % [facility] Monocytes 7.4 (H) 0.0 - 6.0 % [facility] Eosinophils 1.5 0.0 - 6.0 % [facility] Basophils 0.6 0.0 - 1.2 % [facility] Immature 0.1 0.0 - 1.0 % [place] granulocytes [facility] Specimen Blood Performing Organization Address City/State/ZIP Code P bernie Number [facility] [address] [place] [address] PATHOLOGY AND GENOMIC MEDICINE [facility] [address] * Basic metabolic panel (11/14/2019 10:15 AM CDT) Sodium 141 135 - 150 mEq/L [facility] Potassium 4.1 3.5 - 5.0 mEq/L [facility] Chloride 104 98 - 112 mEq/L [facility] CO2 28 24 - 31 mmol/L [facility] Anion gap 9@ANIO 7 - 15 mEq/L [facility] BUN 13 7 - 18 mg/dL [facility] Creatinine 1.00 0.70 - 1.20 mg/dL [facility] Glucose 106 (H) 65 - 100 mg/dL [facility] Calcium 9.3 8.8 - 10.2 mg/dL [facility] Specimen Blood Performing Organization Address City/State/ZIP Code P bernie Number [facility] [address] [place] [address] PATHOLOGY AND GENOMIC MEDICINE [address] * XR Spine [place] 2-3 Views (09/09/2019 12:01 PM CDT) Only the most recent of 3 results within the time period is included. Specimen Narrative Performed At [facility] AP lateral scoliosis x-ray shows instru mentation from the thoracolumbar junction to L5 with interbody fusion at L5-S1 as well. There is multilevel interbody instrumentation in the lumbar spine with a corpectomy and anterior spinal instrumentation. There is no evidence of hardware failure or lucency at this time. The patient significant sagittal plane deformity is improved significantly fro m preop with still a slight sagittal plane deformity. Cervical sp ine also shows multilevel degenerative changes with no other acut e abnormalities. 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
== END 2019-12-13 13:21 | disposition home health service (06) ==
LOC: OR 07:17 → PACU V 10:07 → MED/SURG 12:43
PROVIDERS: ADMIT Specialist; ATTEND Specialist
DX: M16.12 Unilateral primary osteoarthritis, left hip (principal); Z96.641 Presence of right artificial hip joint; I10 Essential (primary) hypertension; E78.00 Pure hypercholesterolemia, unspecified; Z82.49 Family history of ischemic heart disease and other diseases of the circulatory system; Z84.89 Family history of other specified conditions; Z01.812 Encounter for preprocedural laboratory examination; Z01.818 Encounter for other preprocedural examination; Z20.828 Contact with and (suspected) exposure to other viral communicable diseases
CPT/HCPCS: 27130; 36415 ×2; 71046; 72170; 85014; 85018; 85025; 86850; 86900; 86920; 97116 ×2; 97161; 97530; C1713 ×3; C1776 ×2; G0378 ×2; J0171; J0690 ×2; J1100; J1885; J2795; J3370; J7040; U0002; J2001; J2370; J2405; J2710